=== PATIENT | male | born 1960 | race Caucasian/White ===

== ENCOUNTER 2019-10-08 05:07 | Emergency (ER) | payer OTHER, SELFPAY ==
[2019-10-08 05:16] VITALS: BP 136/87; PULSE 84; RESP 18; TEMP 36.4; O2SAT 98; BMI 31.3
--- NOTE | 2019-10-08 05:35 | ED_ITS ---
HPI - Wound/Laceration General: Chief Complaint: Wound/Laceration Stated Complaint: possible spider bite right thigh Time Seen by Provider: 10/08/19 05:21 History of Present Illness: HPI narrative: 58-year-old diabetic he says he was bitten by a spider 2 to 3 weeks ago on the right lateral thigh. He was also bitten again a week ago on the left buttock. He has a small swollen tender spot over his left eye as well. He was told by his daughter to be evaluated. He denies any fever, chills, streaking redness, etc. He had placed a drawing ointment on 1 of the areas, and evacuated some drainage a week or so ago. Onset (ago): week(s) (2-3) Extremity Location: Left: hip and Right: thigh Place: home Patient tetanus UTD: No Context: accidental Associated symptoms: Reports no associated symptoms; Denies chills or fever(s) Treatments prior to arrival: bandage Review of Systems Const: Denies: fever, chills or body aches Card: Denies: chest pain or palpitations Resp: Denies: shortness of breath or productive cough Skin/Breast: Reports: redness, sores and new lesion PFSH ED PFSH: Social History Smoking and tobacco status: current every day smoker Physical Exam Const: COMMON NORMALS: no apparent distress and oriented x3 Resp: COMMON NORMALS: normal respiratory effort, no retractions and clear to auscultation bilaterally AUSCULTATION: clear to auscultation bilaterally Cardio: COMMON NORMALS: regular rhythm RATE: tachycardic RHYTHM: regular rhythm Neuro: COMMON NORMALS: oriented x3 Skin: NARRATIVE SKIN EXAM: 6 cm area of induration with eschar formation over the right thigh. There is no fluctuance. 3 cm induration area with eschar formation over the left buttock with no fluctuance. Small area of induration over the left eyebrow with no fluctuance. LESIONS: lesion noted Course Vital Signs: Vital signs: Vital Signs Temperature 97.6 F 10/08/19 05:16 Pulse Rate 84 10/08/19 05:16 Respiratory Rate 18 10/08/19 05:16 Blood Pressure 136/87 10/08/19 05:16 Pulse Oximetry 98 10/08/19 05:16 MDM - Wound/Laceration MDM Narrative: Medical decision making narrative: No indication for labs. No drainable abscesses. The abscess to the right thigh has drained sufficiently. He will be placed on some doxycycline Discharge Plan Discharge Patient Disposition: Home, Self-Care Clinical Impression: Abscess, Accidental spider bite Condition: Stable Prescriptions: New doxycycline hyclate 100 mg capsule 100 mg PO BID 10 Days Qty: 20 RF: 0 Discharge Orders: Discharge Order (Routine); Ordered 10/08/19 Ordered By: Emeterio Humphrey Discharge Diet: Usual diet Discharge Activity: Increase activity as tolerated Patient Instructions: Brown Recluse Spider Bite (ED), Abscess (ED) Activity Restrictions/Additional Instructions: Return for fever greater than 100, increasing swelling, streaking redness, worsening pain, other concerning symptoms. Coding Level of Care Code ED Radio Journalist for Katiana Mcclain
[2019-10-08] MEDS: doxycycline 100 mg Tablet PO (05:53)
[2019-10-08] MEDS: tetanus-diphtheria tox (adult) 0.5 mL SDV IM (05:53)
== END 2019-10-08 05:59 | disposition home or self-care (01) ==
PROVIDERS: Emergency Provider Emergency Medicine
DX: T63.301A Toxic effect of unspecified spider venom, accidental (unintentional), initial encounter (principal); L02.415 Cutaneous abscess of right lower limb; F17.210 Nicotine dependence, cigarettes, uncomplicated; Z23 Encounter for immunization
CPT/HCPCS: 12345; 90714; 99281; 99283

== ENCOUNTER 2019-11-12 21:56 | Emergency (ER) | payer OTHER, SELFPAY ==
[2019-11-12 22:32] VITALS: BP 145/83; PULSE 112; RESP 17; TEMP 36.9; O2SAT 98; BMI 31.3
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
[2019-11-13] MEDS: ketorolac 30 mg/mL INJ IM (00:28)
[2019-11-13] MEDS: orphenadrine 30 mg/mL Inj 2 mL 60 MG IM (00:29)
[2019-11-13 00:50] VITALS: BP 138/88; PULSE 16; RESP 73; O2SAT 98
== END 2019-11-13 00:53 | disposition home or self-care (01) ==
PROVIDERS: Emergency Provider Nurse Practitioner Family
DX: M54.6 Pain in thoracic spine (principal); F17.210 Nicotine dependence, cigarettes, uncomplicated
CPT/HCPCS: 12345; 96372; 99281; 99283; J1885; J2360

== ENCOUNTER 2020-04-18 17:51 | Emergency (ER) | payer OTHER, SELFPAY ==
[2020-04-18] VITALS (7 sets, daily range): BP systolic 147–187; BP diastolic 93–102; PULSE 96–122; RESP 17–20; TEMP 36.8; O2SAT 90–99; BMI 31.3
--- NOTE | 2020-04-18 19:31 | CTR_ITS ---
PROCEDURE INFORMATION: Exam: CT Abdomen And Pelvis With Contrast Exam date and time: 04/18/2020 7:50 PM Age: 59 years old Clinical indication: Nausea and vomiting; Abdominal pain; Additional info: Epigastric pain TECHNIQUE: Imaging protocol: Computed tomography of the abdomen and pelvis with intravenous contrast. Radiation optimization: All CT scans at this facility use at least one of these dose optimization techniques: automated exposure control; mA and/or kV adjustment per patient size (includes targeted exams where dose is matched to clinical indication); or iterative reconstruction. Contrast material: OMNI 300; Contrast volume: 95 ml; Contrast route: INTRAVENOUS (IV); COMPARISON: CT abdomen pelvis w con* [id number] 10/08/2018 11:20 PM RADIATION DOSE METRICS: Total DLP (mGy-cm): 647.22 FINDINGS: Lungs: Mild interstitial fibrosis at the lung bases. Liver: The liver is unremarkable in appearance. Decreased hepatic density is noted, consistent with hepatic steatosis. Gallbladder and bile ducts: No calcified gallstones in the gallbladder. No gallbladder wall thickening. No pericholecystic fluid. No biliary dilatation. Pancreas: The pancreas is normal in appearance. Spleen: The spleen is normal in size and appearance. Adrenal glands: TheThe adrenal glands appear within normal limits. Kidneys and ureters: 6 mm simple appearing cyst, lower pole left kidney. 3 mm nonobstructing left renal calculus. No hydronephrosis. Normal ureters bilaterally. Stomach and bowel: Mural thickening of the gastric antrum, consistent with gastritis versus gastric ulcer disease. Moderate retained stool throughout the colon, consistent with constipation. The small bowel is unremarkable as demonstrated. Appendix: No evidence of appendicitis. Intraperitoneal space: No pneumoperitoneum. No significant fluid collection. Vasculature: The aorta is atherosclerotic. No aortic aneurysm. Lymph nodes: No pathologically enlarged lymph nodes. Urinary bladder: The urinary bladder is unremarkable in appearance. Reproductive: Unremarkable as visualized. Bones/joints: Degenerative spine changes are noted. No fracture or other acute osseous abnormality. No fracture or other acute osseous abnormality. Soft tissues: Unremarkable. CT/CT abdomen pelvis w con* [id number] IMPRESSION: 1. Mural thickening of the gastric antrum, consistent with gastritis versus gastric ulcer disease. This is similar to the appearance of the stomach on 10/08/2018. 2. Decreased hepatic density is noted, consistent with hepatic steatosis. COMMENTS: Consistent with the [employer]'s Incidental Findings Committee white paper (J Am Ciara Radiol 2018): Any incidental renal lesion less than 1 cm or classified as too small to characterize, or any incidental cystic renal lesion characterized as simple-appearing, is likely benign. No follow-up imaging is recommended for these lesions per consensus recommendations based on imaging criteria. Radiation Dose CTDIVOL = (mGy): DLP = 647.22 (mGy-cm)
--- NOTE | 2020-04-18 19:32 | ECG_ITS ---
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 Measurements Intervals [place] Rate: 108 P: 71 PA: 151 QRS: 70 QRSD: 77 T: 89 QT: 325 QTc: 436 Interpretive Statements SINUS TACHYCARDIA SEPTAL MYOCARDIAL INFARCTION , OF INDETERMINATE AGE [40+ ms Q WAVE IN V1/V2] Compared to ECG 08/12/2015 20:34:47 Myocardial infarct finding now present Sinus rhythm no longer present T-wave abnormality no longer present Electronically Signed On 04-19-2020 21:59:00 TIER OVER by Cisco Bishop M.D. [email or web address]
[2020-04-18] MEDS: ondansetron 2 mg/ML SDV 2 mL 4 MG IVP (19:44)
[2020-04-18] MEDS: morphine 4 mg/mL SDV 1 mL IVP (19:45)
[2020-04-18] MEDS: pantoprazole 40 mg SDV IVP (19:45)
--- NOTE | 2020-04-18 19:51 | PC.NURSE ---
Patient blood glucose is 219, nurse and doctor are aware.
[2020-04-18 19:54] LABS: Glucose Point of Care 219 mg/dL (70-110)
[2020-04-18 20:01] LABS: Basophils # 0.1 10^3/uL (0.0-0.1); Basophils % 0.6 %; Eosinophils # 0.5 10^3/uL (0.0-0.8); Eosinophils % 2.8 %; Hematocrit 53.1 % (42.0-52.0); Hemoglobin 17.8 g/dL (11.7-16.6); Lymphocytes # 5.1 10^3/uL (0.8-4.8); Lymphocytes % 28.8 %; Mean Corpuscular HGB Conc 33.5 g/dL (30.0-36.0); Mean Corpuscular Hemoglobin 28.4 pg (28.0-34.0); Mean Corpuscular Volume 84.7 fL (80-94); Mean Platelet Volume 11.1 fL (7.4-10.4); Monocytes # 1.1 10^3/uL (0.2-0.9); Monocytes % 6.2 %; Neutrophils # 10.87 10^3/uL (1.8-7.7); Neutrophils % 61.1 %; Nucleated Red Blood Cells % 0 %; Platelet Count 269 10^3/cmm (130-400); Red Blood Count 6.27 10^6/uL (4.1-5.3); Red Cell Distribution Width 12.1 % (12.1-15.1); White Blood Count 17.8 10^3/uL (4.0-10.0)
[2020-04-18] MEDS: iohexol 300 mg/mL 100 mL Btl IV (20:10)
[2020-04-18 20:16] LABS: Troponin(5th) Baseline 8 ng/L (0-15)
[2020-04-18] MEDS: HYDROmorphone 1 mg/mL INJ 1 mL IVP (20:30)
--- NOTE | 2020-04-18 20:46 | PC.NURSE ---
This pt displays rapid eye movement and confusion, forgetting that i just administered pain medication. pt continues to experience abdominal pain after morphine and hydromorphine. pt expresses that he is still dizzy. notified.
[2020-04-18] MEDS: lidocaine 2% viscous 15 ML, aluminum-mag hydrox-simethicon 30 ML, sucralfate oral liq 1 GM PO (21:11)
[2020-04-18 21:22] LABS: Add Urine Microscopic? NO
--- NOTE | 2020-04-18 21:32 | ECG_ITS ---
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 Measurements Intervals [place] Rate: 96 P: 74 AR: 164 QRS: 68 QRSD: 80 T: 85 QT: 348 QTc: 441 Interpretive Statements SINUS RHYTHM WITH OCCASIONAL VENTRICULAR PREMATURE COMPLEXES SEPTAL MYOCARDIAL INFARCTION , OF INDETERMINATE AGE [40+ ms Q WAVE IN V1/V2] Compared to ECG 04/18/2020 19:42:14 Ventricular premature complex(es) now present Sinus tachycardia no longer present Myocardial infarct finding still present Electronically Signed On 04-19-2020 22:06:25 LAY OUT FORMER by Cisco Bishop M.D. [id number]
[2020-04-18 21:49] LABS: Blood Urea Nitrogen 10 mg/dL (6-20); Calcium 9.4 mg/dL (8.5-10.5); Carbon Dioxide 29 mmol/L (22-29); Chloride 93 mmol/L (98-107); Glomerular Filtration Rate 115.8 mL/min (90-130); Glucose 247 mg/dL (65-115); Osmolality Calculated 283 mOsm/kg (285-295); Sodium 133 mmol/L (136-145)
[2020-04-18 21:50] LABS: Alanine Aminotransferase 21 U/L (0-41); Albumin Level 4.1 g/dL (3.5-5.2); Alkaline Phosphatase 125 IU/L (40-130); Aspartate Amino Transferase 16 U/L (0-40); Globulin 2.4 g/dL (1.3-4.6); Lipase 59 U/L (13-60); Total Bilirubin 0.3 mg/dL (0.15-1.2); Total Protein 6.5 g/dL (6.6-8.7)
[2020-04-18 22:05] LABS: Bilirubin Urine Neg (Negative); Blood Urine Neg (Negative); Glucose Urine UA 4+ (Normal); Ketones Urine Negative (Negative); Leukocyte Esterase Urine Negative (Negative); Nitrate Urine Negative (Negative); Protein Urine Neg (Negative); Specific Gravity, Urine 1.005 (1.005-1.030); Urine Appearance Clear (CLEAR); Urine Color Yellow (Yellow); Urobilinogen Urine Norm (Negative)
[2020-04-18 22:22] LABS: Troponin 5 2HR 7.63 ng/L (0-15)
[2020-04-18 22:35] LABS: Troponin 5 2HR Delta -0.37 ABS# (0-10)
--- NOTE | 2020-04-18 22:46 | ED_ITS ---
HPI - Abdominal Pain General: Chief Complaint: Abdominal Pain Stated Complaint: unbearable ab pain,dizziness Time Seen by Provider: 04/18/20 19:24 Source: patient Mode of arrival: ambulatory Limitations: no limitations History of Present Illness: HPI narrative: 59-year-old gentleman presents to the emergency department with complaints of. That has been ongoing for about 3 days. Pain is worsening, with associated nausea and dry heaving but no vomiting. He denies diarrhea or constipation. He says he also has dizziness, however the dizziness has been ongoing for about a year. He is here to be evaluated for the pain MD elicited complaint: abdominal pain Pertinent past history: gastritis Onset (ago): day(s) (3) Pain Consistency: constant Location: Epigastric Severity: severe Quality: stabbing Radiation: none Migration to: no migration Exacerbating factors: nothing Relieving factors: nothing Associated Symptoms: Reports anorexia, dyspepsia and nausea; Denies belching, bloating, change in bowel habits, change in stool character, chills, coffee ground emesis, constipation, GI cramping, diarrhea, dysuria, excessive flatus, fever(s), heartburn, hematochezia, hematuria, hematemesis, fecal incontinence, loose stools, melena, poor appetite, syncope and vomiting Review of Systems General: Reports: 10 or more systems reviewed and unremarkable except in HPI and below Const: Denies: fever(s) or chills Eyes: Denies: change in vision or blurry vision ENMT: Denies: throat pain, enlarged tonsils, odynophagia, hoarseness, mouth p ain or swelling of lips/tongue Card: Denies: syncope Resp: Denies: dyspnea, productive cough or non-productive cough GI: Reports: nausea; Denies: vomiting, hematemesis, coffee ground emesis, heartburn, diarrhea, constipation, bloating, GI cramping, belching, excessive flatus, fecal incontinence, change in bowel habits, change in stool character, hematochezia or melena : Denies: dysuria or hematuria Musc: Denies: neck pain, back pain or extremity swelling Skin/Breast: Denies: rash, pruritus or erythema Neuro: Denies: headache(s), numbness in extremities or weakness in extremities Endo: Denies: polyuria, polydipsia or tired all the time PFSH ED PFSH: Social History Smoking and tobacco status: current every day smoker Physical Exam Const: COMMON NORMALS: average body habitus, patient oriented x3, no limitations, healthy appearing, alert and well nourished GENERAL APPEARANCE: in distress (Painful) HENMT: COMMON NORMALS: normocephalic, atraumatic and moist oral mucous membranes HEAD & SCALP: normocephalic and atraumatic Eye: COMMON NORMALS: Equal, round and reactive pupils present, EOMs intact bilaterally, conjunctivae normal and no scleral icterus CONJUNCTIVA: Yes conjunctivae normal PUPIL: Yes Equal, round and reactive pupils present Neck/C-Spine: COMMON NORMALS: no meningeal signs and no JVD Resp: COMMON NORMALS: normal respiratory effort, No retractions, No use of accessory muscles, clear to auscultation bilaterally and percussion normal AUSCULTATION: clear to auscultation bilaterally PERCUSSION: percussion normal Cardio: COMMON NORMALS: no JVD, regular rate, regular rhythm, S1 normal heart sound present, S2 normal heart sound present, No gallops present (Cardio), No clicks present (Cardio), No murmurs present (Cardio), No rub (Cardio) and Peripheral pulses 2+ throughout RATE: regular rate RHYTHM: regular rhythm HEART SOUNDS: S1 normal heart sound present and S2 normal heart sound present PERIPHERAL PULSES: Peripheral pulses 2+ throughout GI: COMMON NORMALS: Normal to inspection, nondistended, normoactive bowel sounds present, Soft to palpation, No hepatosplenomegaly present, no masses and no bruits PALPATION: Yes Soft to palpation, Yes Tenderness to palpation present (GI) (Epigastric), No Guarding due to palpation present (GI), No Rigid due to palpation, Yes No hepatosplenomegaly present and No Rebound tenderness present Extremity: COMMON NORMALS: normal to inspection, full ROM, capillary refill normal, no calf tenderness and no pedal edema Neuro: COMMON NORMALS: patient oriented x3 SENSORIUM/ORIENTATION: Yes alert MENINGEAL SIGNS: Yes no meningeal signs Skin: COMMON NORMALS: no rashes or lesions noted, no wounds, turgor normal, no jaundice, no petechiae and no mottling GENERAL SKIN EXAM: no rashes or lesions noted and turgor normal Course Reevaluation(s): Reevaluation #1: Patient seen he feels much better especially after the GI cocktail. Explained his lab and imaging findings with him. CT scan suggestive of gastritis/gastric ulcer. He says he has a history of gastritis. He has never had an upper GI endoscopy. We will discharge him home with a prescription for PPI and he is advised on diet, avoid spicy foods, caffeine, acidic foods. We will put in a consult for outpatient endoscopy. He voiced understanding and is in agreement with the plan Time: 22:47 Vital Signs: Vital signs: Vital Signs Temperature 98.2 F 04/18/20 17:58 Pulse Rate 96 04/18/20 23:05 Respiratory Rate 18 04/18/20 20:33 Blood Pressure 151/93 04/18/20 21:17 Pulse Oximetry 99 04/18/20 23:05 MDM - Abdominal Pain MDM Narrative: Medical decision making narrative: 59-year-old male who presented to the emergency department with severe epigastric abdominal pain. Evaluation in the emergency department was consistent with acute gastritis. CT scan shows acute gastritis all gastric ulcer based on the imaging findings. Lab work was unremarkable other than leukocytosis which could be a combination of dehydration and stress reaction. He improved remarkably following the GI cocktail. He is discharged home with combination therapy of a PPI and an H2 oleg. He is to follow-up with his primary care provider and an outpatient upper GI endoscopy will be scheduled for him. Medical Records: Attestation: I reviewed the patient's medical records. Lab Data: Attestation: I reviewed the patient's lab results. Labs: Lab Results 04/18/20 04/18/20 04/18/20 Range/Units 19:42 19:42 19:42 WBC 17.8 H (4.0-10.0) 10^3/ uL RBC 6.27 H (4.1-5.3) 10^6/u L Hgb 17.8 H (11.7-16.6) g/dL Hct 53.1 H (42.0-52.0) % MCV 84.7 (80-94) fL MCH 28.4 (28.0-34.0) pg MCHC 33.5 (30.0-36.0) g/dL RDW 12.1 (12.1-15.1) % Plt Count 269 (130-400) 10^3/c mm MPV 11.1 H (7.4-10.4) fL Neut % (Auto) 61.1 % Lymph % (Auto) 28.8 % [place] % (Auto) 6.2 % Eos % (Auto) 2.8 % Baso % (Auto) 0.6 % Neut # (Auto) 10.87 H (1.8-7.7) 10^3/u L Lymph # (Auto) 5.1 H (0.8-4.8) 10^3/u L [place] # (Auto) 1.1 H (0.2-0.9) 10^3/u L Eos # (Auto) 0.5 (0.0-0.8) 10^3/u L Baso # (Auto) 0.1 (0.0-0.1) 10^3/u L Nucleated RBC % (a uto) 0 % Nucleated RBCs # 0.0 /100WBC Sodium 133 L (136-145) mmol/L Potassium 4.0 (3.5-5.1) mmol/L Chloride 93 L (98-107) mmol/L Carbon Dioxide 29 (22-29) mmol/L Anion Gap 15.0 (5-19) BUN 10 (6-20) mg/dL Creatinine 0.7 (0.7-1.2) mg/dL GFR Calculation 115.8 (90-130) mL/min Glucose 247 H (65-115) mg/dL POC Glucose (70-110) mg/dL Calculated Osmolal ity 283 L (285-295) mOsm/k g Calcium 9.4 (8.5-10.5) mg/dL Total Bilirubin 0.3 (0.15-1.2) mg/dL AST 16 (0-40) U/L ALT 21 (0-41) U/L Alkaline Phosphata se 125 (40-130) IU/L Troponin T Baselin e 8 (0-15) ng/L Troponin T 120 Min [place] (0-15) ng/L Delta Troponin T (0-10) ABS# Total Protein 6.5 L (6.6-8.7) g/dL Albumin 4.1 (3.5-5.2) g/dL Globulin 2.4 (1.3-4.6) g/dL Lipase 59 (13-60) U/L Urine Color (Yellow) Urine Appearance (CLEAR) Urine pH (5-7) Ur Specific Gravit y (1.005-1.030) Urine Protein (Negative) Urine Glucose (UA) (Normal) Urine Ketones (Negative) Urine Blood (Negative) Urine Nitrate (Negative) Urine Bilirubin (Negative) Urine Urobilinogen (Negative) mg/dL Ur Leukocyte Rut ase (Negative) 04/18/20 04/18/20 04/18/20 Range/Units 19:49 21:15 21:50 WBC (4.0-10.0) 10^3/ uL RBC (4.1-5.3) 10^6/u L Hgb (11.7-16.6) g/dL Hct (42.0-52.0) % MCV (80-94) fL MCH (28.0-34.0) pg MCHC (30.0-36.0) g/dL RDW (12.1-15.1) % Plt Count (130-400) 10^3/c mm MPV (7.4-10.4) fL Neut % (Auto) % Lymph % (Auto) % [place] % (Auto) % Eos % (Auto) % Baso % (Auto) % Neut # (Auto) (1.8-7.7) 10^3/u L Lymph # (Auto) (0.8-4.8) 10^3/u L [place] # (Auto) (0.2-0.9) 10^3/u L Eos # (Auto) (0.0-0.8) 10^3/u L Baso # (Auto) (0.0-0.1) 10^3/u L Nucleated RBC % (a uto) % Nucleated RBCs # /100WBC Sodium (136-145) mmol/L Potassium (3.5-5.1) mmol/L Chloride (98-107) mmol/L Carbon Dioxide (22-29) mmol/L Anion Gap (5-19) BUN (6-20) mg/dL Creatinine (0.7-1.2) mg/dL GFR Calculation (90-130) mL/min Glucose (65-115) mg/dL POC Glucose 219 (70-110) mg/dL Calculated Osmolal ity (285-295) mOsm/k g Calcium (8.5-10.5) mg/dL Total Bilirubin (0.15-1.2) mg/dL AST (0-40) U/L ALT (0-41) U/L Alkaline Phosphata se (40-130) IU/L Troponin T Baselin e (0-15) ng/L Troponin T 120 Min [place] 7.63 (0-15) ng/L Delta Troponin T -0.37 L (0-10) ABS# Total Protein (6.6-8.7) g/dL Albumin (3.5-5.2) g/dL Globulin (1.3-4.6) g/dL Lipase (13-60) U/L Urine Color Yellow (Yellow) Urine Appearance Clear (CLEAR) Urine pH 8.0 H (5-7) Ur Specific Gravit y 1.005 (1.005-1.030) Urine Protein Neg (Negative) Urine Glucose (UA) 4+ H (Normal) Urine Ketones Negative (Negative) Urine Blood Neg (Negative) Urine Nitrate Negative (Negative) Urine Bilirubin Neg (Negative) Urine Urobilinogen Norm (Negative) mg/dL Ur Leukocyte Rut ase Negative (Negative) Imaging Data ^: CT Abd/Pel: Attestation: I personally reviewed and interpreted this imaging study as follows: Radiologist's impression: [address] [address] [address] Scan Report Signed Patient: Tom Lyons #: [id number] : [facility]#:[id number] Age/Sex: 59 / MADM Date: 04/18/20 Loc: [facility]/Bed: Attending Dr: Ordering Provider/Ordering MD: Esperanza Cruz MD, [facility] Date of Service: 04/18/20 Procedure(s): CT abdomen pelvis w con* [id number] Accession Number(s): [id number] Report Number: [id number] PROCEDURE INFORMATION: Exam: CT Abdomen And Pelvis With Contrast Exam date and time: 04/18/2020 7:50 PM Age: 59 years old Clinical indication: Nausea and vomiting; Abdominal pain; Additional info: Epigastric pain TECHNIQUE: Imaging protocol: Computed tomography of the abdomen and pelvis with intravenous contrast. Radiation optimization: All CT scans at this facility use at least one of these dose optimization techniques: automated exposure control; mA and/or kV adjustment per patient size (includes targeted exams where dose is matched to clinical indication); or iterative reconstruction. Contrast material: OMNI 300; Contrast volume: 95 ml; Contrast route: INTRAVENOUS (IV); COMPARISON: CT abdomen pelvis w con* [id number] 10/08/2018 11:20 PM RADIATION DOSE METRICS: Total DLP (mGy-cm): 647.22 FINDINGS: Lungs: Mild interstitial fibrosis at the lung bases. Liver: The liver is unremarkable in appearance. Decreased hepatic density is noted, consistent with hepatic steatosis. Gallbladder and bile ducts: No calcified gallstones in the gallbladder. No gallbladder wall thickening. No pericholecystic fluid. No biliary dilatation. Pancreas: The pancreas is normal in appearance. Spleen: The spleen is normal in size and appearance. Adrenal glands: TheThe adrenal glands appear within normal limits. Kidneys and ureters: 6 mm simple appearing cyst, lower pole left kidney. 3 mm nonobstructing left renal calculus. No hydronephrosis. Normal ureters bilaterally. Stomach and bowel: Mural thickening of the gastric antrum, consistent with gastritis versus gastric ulcer disease. Moderate retained stool throughout the colon, consistent with constipation. The small bowel is unremarkable as demonstrated. Appendix: No evidence of appendicitis. Intraperitoneal space: No pneumoperitoneum. No significant fluid collection. Vasculature: The aorta is atherosclerotic. No aortic aneurysm. Lymph nodes: No pathologically enlarged lymph nodes. Urinary bladder: The urinary bladder is unremarkable in appearance. Reproductive: Unremarkable as visualized. Bones/joints: Degenerative spine changes are noted. No fracture or other acute osseous abnormality. No fracture or other acute osseous abnormality. Soft tissues: Unremarkable. CT/CT abdomen pelvis w con* [id number] IMPRESSION: 1. Mural thickening of the gastric antrum, consistent with gastritis versus gastric ulcer disease. This is similar to the appearance of the stomach on 10/08/2018. 2. Decreased hepatic density is noted, consistent with hepatic steatosis. COMMENTS: Consistent with the [employer]'s Incidental Findings Committee white paper (J Am Ciara Radiol 2018): Any incidental renal lesion less than 1 cm or classified as too small to characterize, or any incidental cystic renal lesion characterized as simple-appearing, is likely benign. No follow-up imaging is recommended for these lesions per consensus recommendations based on imaging criteria. Radiation Dose CTDIVOL = (mGy): DLP = 647.22 (mGy-cm) Dictated By:Lonny Erickson MD Signed By:Lonny Erickson MDSigned Date/Time:04/18/202029 DD/ 27 EKG Data ^: EKG 1: Attestation: I personally reviewed and interpreted this EKG as follows: EKG interpretation date: 04/18/20 EKG interpretation time: 19:42 Prior EKG tracings: not available for review Interpretation: Sinus tachycardia. Heart rate [address] changes. Normal axis. EKG 2: Attestation: I personally reviewed and interpreted this EKG as follows: EKG interpretation date: 04/18/20 EKG interpretation time: 22:00 Prior EKG tracings: available for review Interpretation: Sinus rhythm with occasional PVC. Heart rate [address] changes. Discharge Plan Discharge Patient Disposition: Home Clinical Impression: Gastritis Qualifiers: Gastritis type: unspecified gastritis Chronicity: acute Gastritis bleeding: without bleeding Qualified Code(s): K29.00 - Acute gastritis without bleeding Condition: Stable Prescriptions: New famotidine 40 mg tablet 40 mg PO DAILY Qty: 14 RF: 0 omeprazole 40 mg capsule,delayed release(DR/EC) 40 mg PO DAILY 28 Days Qty: 30 RF: 0 Discharge Orders: Discharge Order (Routine); Ordered 04/18/20 Ordered By: Esperanza Cruz Discharge Diet: As Directed Discharge Activity: Increase activity as tolerated Patient Instructions: Gastritis (ED), Diet for Ulcers and Gastritis (ED) Activity Restrictions/Additional Instructions: Return for any new or worsening symptoms. Follow-up with your primary care provider within 3 days. You will be contacted with an appointment for an upper GI endoscopy to see if you have a stomach ulcer or just an inflammation of your stomach. Follow the diet as directed. Coding Level of Care Code ED Certified Phlebotomist for Chg Fwd Exam Comprehensive
--- NOTE | 2020-04-18 23:06 | PC.NURSE ---
pt dc home as the GI cocktail completely stopped his pain he is feeling much better.
--- NOTE | 2020-04-19 11:10 | DCPLANNER ---
Addendum entered by Teena Maurice 04/19/20 12:36: Patient has [facility] insurance, residential case manager notified August with [facility] that patient was seen in the ED and needed a followup with general surgery. Original Note: meat manager had message to schedule a follow up appointment for patient with general surgery. meat manager emailed Amada at [facility]. meat manager gave clinic patients information. Patients information will be printed and reviewed. Clinic will call patient with appointment information.
--- NOTE | 2020-04-19 15:30 | DCPLANNER ---
Gena from the [place] contacted patient and was told that patient does not have a PACT team assigned to him in [place]. manager research and development was given a phone number to the [place] business office, that patient would need to contact and let know that patient would like to get assigned a PACT team in [place]. manager research and development called patient and gave them the number to business office for him to call so that he could get assigned a team.
== END 2020-04-18 23:07 | disposition home or self-care (01) ==
PROVIDERS: Emergency Medicine; Emergency Provider Family Medicine
DX: K29.00 Acute gastritis without bleeding (principal); F17.210 Nicotine dependence, cigarettes, uncomplicated; R42 Dizziness and giddiness
CPT/HCPCS: 12345; 36416; 74177; 80053; 81003; 82962; 83690; 84484; 85025; 93005; 96374; 96375; 99283; C9113; J1170; J2270; J2405; Q9967

== ENCOUNTER 2021-04-22 17:07 | Observation (INO) | payer OTHER, SELFPAY ==
[2021-04-22 17:14] VITALS: BP 173/93; PULSE 114; RESP 14; TEMP 37.1; O2SAT 99; BMI 28.1
--- NOTE | 2021-04-22 18:21 | XRR_ITS ---
PROCEDURE INFORMATION: Exam: XR Chest Exam date and time: 04/22/2021 6:21 PM Age: 60 years old Clinical indication: Other: AMS TECHNIQUE: Imaging protocol: XR of the chest. Views: 1 view. COMPARISON: CR Chest 1 [place] [id number] 08/12/2015 8:04 PM FINDINGS: Increased interstitial markings are seen throughout the lungs especially the left lung base. There is no consolidation. There is no pleural effusion or pneumothorax. The heart size is normal. XR/XR chest 1V portable [id number] IMPRESSION: Increased interstitial markings throughout the lungs especially the left lung base. No consolidation. Radiation Dose CTDIVOL = (mGy): DLP = (mGy-cm)
--- NOTE | 2021-04-22 18:21 | CTR_ITS ---
PROCEDURE INFORMATION: Exam: CT Head Without Contrast Exam date and time: 04/22/2021 6:21 PM Age: 60 years old Clinical indication: Altered mental status/memory loss; Additional info: AMS TECHNIQUE: Imaging protocol: Computed tomography of the head without contrast. Radiation optimization: All CT scans at this facility use at least one of these dose optimization techniques: automated exposure control; mA and/or kV adjustment per patient size (includes targeted exams where dose is matched to clinical indication); or iterative reconstruction. COMPARISON: No relevant prior studies available. RADIATION DOSE METRICS: Total DLP (mGy-cm): 864.41 FINDINGS: There is mild generalized atrophy. There are mild areas of decreased attenuation in the periventricular white matter which is nonspecific but likely relates to small vessel ischemic change. 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 There is no evidence for acute infarct. There is no evidence for mass. There is no hemorrhage. There are no extra-axial fluid collections. There is no midline shift. The skull is intact. The visualized paranasal sinuses are well aerated. There is atherosclerotic change of the cavernous carotid arteries. CT/CT head wo con* [id number] IMPRESSION: No evidence for acute infarct, mass or hemorrhage. Radiation Dose CTDIVOL = (mGy): DLP = 864.41 (mGy-cm)
--- NOTE | 2021-04-22 18:21 | ECG_ITS ---
[facility] Test Date: 2021-04-22 Pat Name: Tom Lyons Department: Room: Gender: Male Product Controller: : 1960 Requested By: Estrella Mckeon Order Number: [id number] Melissa MD: Cisco Bishop M.D. Measurements Intervals [place] Rate: 115 P: 68 PA: 132 QRS: 59 QRSD: 77 T: 81 QT: 312 QTc: 432 Interpretive Statements SINUS TACHYCARDIA POSSIBLE LEFT ATRIAL ENLARGEMENT [-0.1mV P-WAVE IN V1/V2] SEPTAL MYOCARDIAL INFARCTION , OF INDETERMINATE AGE [40+ ms Q WAVE IN V1/V2] Compared to ECG 04/18/2020 21:59:49 Sinus rhythm no longer present Ventricular premature complex(es) no longer present Myocardial infarct finding still present Electronically Signed On 04-22-2021 20:05:52 PROGRAM COUNSELOR by Cisco Bishop M.D. [id number]
[2021-04-22 19:21] LABS: Glucose Point of Care 352 mg/dL (70-110)
[2021-04-22 19:29] LABS: Add Urine Microscopic? NO; Charge for UA Resulting for Rev
[2021-04-22 19:30] VITALS: BP 176/101; PULSE 105; RESP 18; O2SAT 98
[2021-04-22 19:35] LABS: Bilirubin Urine Neg (Negative); Blood Urine Neg (Negative); Glucose Urine UA 4+ (Normal); Ketones Urine Negative (Negative); Leukocyte Esterase Urine Negative (Negative); Nitrate Urine Negative (Negative); Protein Urine Neg (Negative); Specific Gravity, Urine 1.015 (1.005-1.030); Urine Appearance Clear (CLEAR); Urine Color Straw (Yellow); Urobilinogen Urine Norm (Negative); pH Urine 5 (5-7)
--- NOTE | 2021-04-22 19:50 | W.ED.AMS ---
HPI - Altered Mental Status General: Chief Complaint: Altered Mental Status Stated Complaint: Poss Stroke, Unclear thinking, unable to text Time Seen by Provider: 04/22/21 17:41 Source: patient Mode of arrival: ambulatory Limitations: no limitations History of Present Illness: HPI narrative: 60-year-old male states that since last night he has been having what he believes is strokelike symptoms. He states he has had difficulty forming thoughts he is having a hard time texting and just having some confusion. He states that he also felt like he is having some numbness in his face and increased drooling. Said some difficulty walking but able to walk while here. Denies any focal weaknesses. He has had no slurred speech. Denies any chest pain denies any fever denies headache. Associated symptoms: Deny depression Review of Systems Const: Denies: fever(s), chills, body aches or change in appetite Eyes: Denies: blurry vision or eye discomfort ENMT: Denies: throat pain or dental pain Card: Denies: chest pain Resp: Denies: dyspnea GI: Denies: abdominal pain, nausea, vomiting or diarrhea : Denies: dysuria Musc: Denies: neck pain or back pain Skin/Breast: Denies: rash Neuro: Reports: dizziness, confusion and behavioral changes Psych: Denies: depression Stewart/Lymph: Denies: easy bruising All/Imm: Denies: urticaria PFSH ED PFSH: Social History Smoking and tobacco status: current every day smoker Physical Exam Const: COMMON NORMALS: no acute distress, patient oriented x3 and healthy appearing HENMT: COMMON NORMALS: normocephalic and atraumatic HEAD & SCALP: normocephalic and atraumatic Eye: COMMON NORMALS: Equal, round and reactive pupils present and EOMs intact bilaterally PUPIL: Yes Equal, round and reactive pupils present Neck/C-Spine: COMMON NORMALS: full ROM and supple Chest: COMMONS NORMALS: normal inspection of the chest and normal palpation of entire chest wall Resp: COMMON NORMALS: normal respiratory effort, No retractions, No use of accessory muscles and clear to auscultation bilaterally AUSCULTATION: clear to auscultation bilaterally Cardio: COMMON NORMALS: regular rate, regular rhythm and No murmurs present (Cardio) RATE: regular rate RHYTHM: regular rhythm GI: COMMON NORMALS: Normal to inspection, nondistended, normoactive bowel sounds present, Soft to palpation, non-tender and no masses PALPATION: Yes Soft to palpation Extremity: COMMON NORMALS: normal to inspection and full ROM Neuro: COMMON NORMALS: patient oriented x3, moves all extremities and no focal motor deficits Psych: COMMON NORMALS: mental status grossly normal, Normal thought process present and cooperative THOUGHT PROCESS: Normal thought process present Skin: COMMON NORMALS: no rashes or lesions noted and no wounds GENERAL SKIN EXAM: no rashes or lesions noted Course Vital Signs: Vital signs: Vital Signs Temperature 98.7 F 04/22/21 17:14 Pulse Rate 101 H 04/22/21 22:17 Respiratory Rate 18 04/22/21 22:17 Blood Pressure 146/86 04/22/21 22:35 Pulse Oximetry 99 04/22/21 22:17 MDM - Altered Mental Status MDM Narrative: Medical decision making narrative: Patient presents here with confusion and some slight weakness with possible strokelike symptoms NIH here is 0 at this time he does have some intermittent confusion. Spoke to the hospitalist will admit for observation for likely MRI in the morning patient's been stable while here. Lab Data: Labs: Lab Results 04/22/21 04/22/21 04/22/21 19:11 19:11 19:11 WBC RBC Hgb Hct MCV MCH MCHC RDW Plt Count MPV Neut % (Auto) Lymph % (Auto) Darke % (Auto) Eos % (Auto) Baso % (Auto) Neut # (Auto) Lymph # (Auto) Darke # (Auto) Eos # (Auto) Baso # (Auto) Nucleated RBC % (a uto) Nucleated RBCs # PT Cancelled INR Cancelled Sodium Cancelled Potassium Cancelled Chloride Cancelled Carbon Dioxide Cancelled Anion Gap Cancelled BUN Cancelled Creatinine Cancelled GFR Calculation Cancelled Glucose Cancelled POC Glucose Calculated Osmolal ity Cancelled Calcium Cancelled Total Bilirubin Cancelled AST Cancelled ALT Cancelled Alkaline Phosphata se Cancelled Troponin T Baselin e Cancelled Total Protein Cancelled Albumin Cancelled Globulin Cancelled Urine Color Urine Appearance Urine pH Ur Specific Gravit y Urine Protein Urine Glucose (UA) Urine Ketones Urine Blood Urine Nitrate Urine Bilirubin Urine Urobilinogen Ur Leukocyte Rut ase 1104/22/21 04/22/21 19:11 19:18 20:40 WBC 15.2 10^3/uL H 10 ^3/uL (4.0-10.0) RBC 5.95 10^6/uL H 10 ^6/uL (4.1-5.3) Hgb 17.3 g/dL H g/dL (11.7-16.6) Hct 48.7 % % (42.0-52.0) MCV 81.8 fl fl (80-94) MCH 29.1 pg pg (28.0-34.0) MCHC 35.5 g/dL g/dL (30.0-36.0) RDW 11.9 % L % (12.1-15.1) Plt Count 247 10^3/cmm 10^3 /cmm (130-400) MPV 11.0 fL H fL (7.4-10.4) Neut % (Auto) 56.0 % % Lymph % (Auto) 33.6 % % Darke % (Auto) 7.4 % % Eos % (Auto) 2.0 % % Baso % (Auto) 0.4 % % Neut # (Auto) 8.50 10^3/uL H 10 ^3/uL (1.8-7.7) Lymph # (Auto) 5.1 10^3/uL H 10^ 3/uL (0.8-4.8) Darke # (Auto) 1.1 10^3/uL H 10^ 3/uL (0.2-0.9) Eos # (Auto) 0.3 10^3/uL 10^3/ uL (0.0-0.8) Baso # (Auto) 0.1 10^3/uL 10^3/ uL (0.0-0.1) Nucleated RBC % (a uto) 0 % % Nucleated RBCs # 0.0 /100WBC /100W BC PT INR Sodium Potassium Chloride Carbon Dioxide Anion Gap BUN Creatinine GFR Calculation Glucose POC Glucose 352 mg/dL H mg/dL (70-110) Calculated Osmolal ity Calcium Total Bilirubin AST ALT Alkaline Phosphata se Troponin T Baselin e Total Protein Albumin Globulin Urine Color Straw (Yellow) Urine Appearance Clear (CLEAR) Urine pH 5 (5-7) Ur Specific Gravit y 1.015 (1.005-1.030) Urine Protein Neg (Negative) Urine Glucose (UA) 4+ H (Normal) Urine Ketones Negative (Negative) Urine Blood Neg (Negative) Urine Nitrate Negative (Negative) Urine Bilirubin Neg (Negative) Urine Urobilinogen Norm mg/dL mg/dL (Negative) Ur Leukocyte Rut ase Negative (Negative) 04/22/21 04/22/21 04/22/21 20:40 20:40 20:40 WBC RBC Hgb Hct MCV MCH MCHC RDW Plt Count MPV Neut % (Auto) Lymph % (Auto) Darke % (Auto) Eos % (Auto) Baso % (Auto) Neut # (Auto) Lymph # (Auto) Darke # (Auto) Eos # (Auto) Baso # (Auto) Nucleated RBC % (a uto) Nucleated RBCs # PT 13.20 SECONDS SEC ONDS (12.1-14.9) INR 0.97 (0.8-1.2) Sodium 133 mmol/L L mmol /L (136-145) Potassium 4.6 mmol/L mmol/L (3.5-5.1) Chloride 95 mmol/L L mmol/ L (98-107) Carbon Dioxide 23 mmol/L mmol/L (22-29) Anion Gap 19.6 H (5-19) BUN 19 mg/dL mg/dL (6-20) Creatinine 0.7 mg/dL mg/dL (0.7-1.2) GFR Calculation 115.4 mL/min mL/m in (90-130) Glucose 328 mg/dL H mg/dL (65-115) POC Glucose Calculated Osmolal ity 291 mOsm/kg mOsm/ kg (285-295) Calcium 8.9 mg/dL mg/dL (8.5-10.5) Total Bilirubin 0.4 mg/dL mg/dL (0.15-1.2) AST 17 U/L U/L (0-40) ALT 27 U/L U/L (0-41) Alkaline Phosphata se 157 IU/L H IU/L (40-130) Troponin T Baselin e 8 ng/L ng/L (0-15) Total Protein 7.1 g/dL g/dL (6.6-8.7) Albumin 3.8 g/dL g/dL (3.5-5.2) Globulin 3.3 g/dL g/dL (1.3-4.6) Urine Color Urine Appearance Urine pH Ur Specific Gravit y Urine Protein Urine Glucose (UA) Urine Ketones Urine Blood Urine Nitrate Urine Bilirubin Urine Urobilinogen Ur Leukocyte Rut ase Imaging Data^: CT Head: Attestation: I personally reviewed and interpreted this imaging study as follows: Radiologist's impression: [facility] [address] [place] [address] CT Scan Report Signed Patient: Tom Lyons Unit #: [id number] : 1960 Age/Sex: 60 / M ADM Date: 04/22/21 Loc: ER Room/Bed: Attending Dr: Ordering Provider/Ordering MD: Estrella Mckeon MD Date of Service: 04/22/21 Procedure(s): CT head wo con* [id number] Accession Number(s): [id number] Report Number: [id number] PROCEDURE INFORMATION: Exam: CT Head Without Contrast Exam date and time: 04/22/2021 6:21 PM Age: 60 years old Clinical indication: Altered mental status/memory loss; Additional info: AMS TECHNIQUE: Imaging protocol: Computed tomography of the head without contrast. Radiation optimization: All CT scans at this facility use at least one of these dose optimization techniques: automated exposure control; mA and/or kV adjustment per patient size (includes targeted exams where dose is matched to clinical indication); or iterative reconstruction. COMPARISON: No relevant prior studies available. RADIATION DOSE METRICS: Total DLP (mGy-cm): 864.41 FINDINGS: There is mild generalized atrophy. There are mild areas of decreased attenuation in the periventricular white matter which is nonspecific but likely relates to small vessel ischemic change. 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 There is no evidence for acute infarct. There is no evidence for mass. There is no hemorrhage. There are no extra-axial fluid collections. There is no midline shift. The skull is intact. The visualized paranasal sinuses are well aerated. There is atherosclerotic change of the cavernous carotid arteries. CT/CT head wo con* [id number] IMPRESSION: No evidence for acute infarct, mass or hemorrhage. Radiation Dose CTDIVOL = (mGy): DLP = 864.41 (mGy-cm) Dictated By: Bucky Berman MD Signed By: Bucky Berman MD Signed Date/Time: 04/22/211923 DD/ 20 CXR: Attestation: I personally reviewed and interpreted this imaging study as follows: Radiologist's impression: [address] [place] [address] XRay Report Signed Patient: Tom Lyons Unit #: [id number] : 1960 Age/Sex: 60 / M ADM Date: 04/22/21 Loc: ER Room/Bed: Attending Dr: Ordering Provider/Ordering MD: Estrella Mckeon MD Date of Service: 04/22/21 Procedure(s): XR chest 1V portable [id number] Accession Number(s): [id number] Report Number: [id number] PROCEDURE INFORMATION: Exam: XR Chest Exam date and time: 04/22/2021 6:21 PM Age: 60 years old Clinical indication: Other: AMS TECHNIQUE: Imaging protocol: XR of the chest. Views: 1 view. COMPARISON: CR Chest 1 [place] [id number] 08/12/2015 8:04 PM FINDINGS: Increased interstitial markings are seen throughout the lungs especially the left lung base. There is no consolidation. There is no pleural effusion or pneumothorax. The heart size is normal. XR/XR chest 1V portable [id number] IMPRESSION: Increased interstitial markings throughout the lungs especially the left lung base. No consolidation. Radiation Dose CTDIVOL = (mGy): DLP = (mGy-cm) Dictated By: Bucky Berman MD Signed By: Bucky Berman MD Signed Date/Time: 04/22/211924 DD/ 20 Discharge Plan Discharge Patient Disposition: Admitted As Inpatient Clinical Impression: Acute confusion Condition: Stable Discharge Diet: Advance as tolerated Discharge Activity: Resume usual activity Coding Level of Care Code ED Lead Embedded Software Engineer for Katiana Mcclain NIH stroke score NIHSS Level Of Consciousness - 1a: 0 Level Of Consciousness Questions - 1b: Both Correct Level Of Consciousness Commands - 1c: Both Correct Best Gaze - 2: Normal Visual Remy - 3: No Visual Loss Facial Palsy - 4: Normal Motor Arm Right - 5: No Drift Motor Arm Left - 5: No Drift Motor Leg Right - 6: No Drift Motor Leg Left - 6: No Drift Limb Ataxia - 7: Absent Sensory - 8: Normal Best Language - 9: No Aphasia Dysarthia - 10: Normal Extinction And Inattention - 11: 0 Score Total Score: 0
[2021-04-22 20:48] LABS: Basophils # 0.1 10^3/uL (0.0-0.1); Basophils % 0.4 %; Eosinophils # 0.3 10^3/uL (0.0-0.8); Hematocrit 48.7 % (42.0-52.0); Hemoglobin 17.3 g/dL (11.7-16.6); Lymphocytes # 5.1 10^3/uL (0.8-4.8); Lymphocytes % 33.6 %; Mean Corpuscular HGB Conc 35.5 g/dL (30.0-36.0); Mean Corpuscular Hemoglobin 29.1 pg (28.0-34.0); Mean Corpuscular Volume 81.8 fl (80-94); Monocytes # 1.1 10^3/uL (0.2-0.9); Monocytes % 7.4 %; Nucleated Red Blood Cells % 0 %; Platelet Count 247 10^3/cmm (130-400); Red Blood Count 5.95 10^6/uL (4.1-5.3); Red Cell Distribution Width 11.9 % (12.1-15.1); White Blood Count 15.2 10^3/uL (4.0-10.0)
[2021-04-22 21:16] LABS: INR 0.97 (0.8-1.2)
[2021-04-22 21:18] LABS: Troponin(5th) Baseline 8 ng/L (0-15)
[2021-04-22 21:21] LABS: Slide Review Slide Review Perform
[2021-04-22 21:22] LABS: Alanine Aminotransferase 27 U/L (0-41); Albumin Level 3.8 g/dL (3.5-5.2); Alkaline Phosphatase 157 IU/L (40-130); Chloride 95 mmol/L (98-107); Potassium 4.6 mmol/L (3.5-5.1); Sodium 133 mmol/L (136-145)
[2021-04-22 21:49] LABS: Anion Gap 19.6 (5-19); Aspartate Amino Transferase 17 U/L (0-40); Blood Urea Nitrogen 19 mg/dL (6-20); Calcium 8.9 mg/dL (8.5-10.5); Carbon Dioxide 23 mmol/L (22-29); Globulin 3.3 g/dL (1.3-4.6); Glomerular Filtration Rate 115.4 mL/min (90-130); Glucose 328 mg/dL (65-115); Osmolality Calculated 291 mOsm/kg (285-295); Total Bilirubin 0.4 mg/dL (0.15-1.2); Total Protein 7.1 g/dL (6.6-8.7)
--- NOTE | 2021-04-22 21:56 | PM.HP ---
Providers/Chief Complaint Chief Complaint: Poss Stroke, Unclear thinking, unable to text History of Present Illness Tom Lyons is a 60 year old male who presented to the hospital after chief complaint of word finding difficulty. Patient stated that his symptoms started about 48 hours ago which she is describing as cannot think right, struggling with word finding. He has not noticed any slurring of speech, facial droop, fever, nausea, vomiting chest pain or shortness of breath. He is vaccinated for COVID-19. Today he woke up feeling very estranged. He grabbed his phone in his hand but could not think what he wanted to type. He lives alone, smokes 1 pack/day. No previous history of CHF, IL, stroke or cancer. No recent use of antibiotics, no febrile episodes. No recent falls or syncopal/seizure activities. No headache, he does have carbon monoxide detector in his home no recent burning around his home. In the ER NIH zero, work-up is negative, patient stating that he still struggling to find appropriate words to describe his events he will be admitted for observation, CTA head and neck B12, TSH requested along A1c and lipid panel. He was hemodynamically stable at the time of my evaluation, was asking for food. Hyperglycemia without signs of DKA, he does have leukocytosis with polycythemia Review of records revealed that he has been polycythemic since 2019 requested erythropoietin, iron panel Does not use oxygen at home, currently doing well on room air Tachycardia, leukocytosis, will request D-dimer Review of Systems Const: Denies: fever(s) Eyes: Denies: change in vision ENMT: Denies: throat pain Card: Denies: chest pain Resp: Denies: dyspnea GI: Denies: abdominal pain : Denies: flank pain Musc: Denies: neck pain Skin/Breast: Denies: rash Neuro: Denies: headache(s) Psych: Denies: anxiety Endo: Denies: polyuria Stewart/Lymph: Denies: easy bruising All/Imm: Denies: urticaria Medications/Allergies Home Medications Medication Instructions Recorded Confirmed Last Taken Type famotidine 40 mg PO DAILY #14 tab 04/18/20 Unknown Rx Allergies Allergy/AdvReac Type Severity Reaction Status Date / Time No Known Allergies Allergy Verified 04/18/20 19:20 PFSH Acute PFSH: Medical History Diabetes Hypertension Surgical History History of testicular surgery Family History Denies family history of Hyperlipidemia Psychiatric illness Lung disease Hypertension Social History Smoking and tobacco status: current every day smoker Alcohol intake: never Substance/Drug Use: never Lives independently: Yes Housing: House Vitals/I&O/Wt Last Vital Signs Temp 98.7 F 04/22/21 17:14 Pulse 114 H 04/22/21 17:14 Resp 14 04/22/21 17:14 BP 173/93 04/22/21 17:14 Pulse Ox 99 04/22/21 17:14 Weight last 48 hrs Weight 81.647 kg Physical Exam Narrative: EXAM NARRATIVE: NIH zero Awake and alert Clinically looks dehydrated Hyperemic conjunctivo- Saturating well on room air No active stridor or wheezing Abdomen soft Lower symmetry no edema Appropriate grooming No focal deficits Appropriate mood and affect Fatigue and lethargy positive Data : 04/22/21 20:40 04/22/21 20:40 A&P Assessment and plan (1) Acute confusion: Status: Acute (2) Polycythemia: Status: Acute Additional A&P Information Word finding difficulty No active strokelike symptoms History of hypertension and diabetes No previous history of IL, CHF or cancer We will check B12, TSH, requested CTA head and neck Does seem to have chronic polycythemia, check erythropoietin level, iron panel, TIBC Polycythemia can present with hyperviscosity syndrome however patient is denying vision changes, NIH zero CT head unremarkable Work-up is unremarkable other than leukocytosis and tachycardia for which I request D-dimer, in case of cardiac please request CTA chest for PE For sinus tachycardia we will give him fluid challenge to see if that would resolve his sinus tachycardia We will check carbon monoxide level Chest x-ray unremarkable increased vascular marking UA unremarkable No signs of meningitis or encephalitis He is vaccinated for COVID-19 Cardiac diet DVT prophylaxis Lovenox Full code Start aspirin and Plavix for possible TIA Sinus tachycardia and leukocytosis could be secondary to dehydration, I do not suspect sepsis at this point Attestations Medical Necessity Statement*: Anticipating discharge within 48 hours Time Spent in Patient Care: Greater than 35 minutes Coding Level of Care Code Acute Gastroenterology Physician for Betsyg Fwd Diagnoses Acute confusion R41.0 Polycythemia D75.1
[2021-04-22 22:17] VITALS: BP 171/113; PULSE 101; RESP 18; O2SAT 99
[2021-04-22] MEDS: aspirin 81 mg Chew Tablet 324 MG PO (22:32)
[2021-04-22 22:35] VITALS: BP 146/86
[2021-04-22 23:12] VITALS: BP 149/88; PULSE 101; RESP 18; O2SAT 97
[2021-04-22 23:22] LABS: Troponin 5 2HR 9.58 ng/L (0-15); Troponin 5 2HR Delta 1.58 ABS# (0-10)
[2021-04-22 23:35] LABS: D Dimer 0.29 ug/mIFEU (0-0.59)
[2021-04-22 23:42] LABS: NT Pro B Type Natriuretic Pept 34 pg/mL (0-125)
[2021-04-22 23:51] LABS: Procalcitonin 0.08 ng/mL (0-0.5); Prolactin 4.02 ng/mL (4.0-15.2); Thyroid Stimulating Hormone 2.62 uIU/mL (0.27-4.20); Vitamin B12 578 pg/mL (232-1245)
[2021-04-23 00:02] LABS: Chol HDL Ratio 4.51 mg/dL (1.0-5.00); Cholesterol 158 mg/dL (0-200); HDL Cholesterol 35 mg/dL (60-100); LDL Cholesterol Calculated 86 mg/dL (50-129); LDL HDL Ratio 2.46 RATIO (0.00-3.22); Triglycerides 187 mg/dL (0-150)
--- NOTE | 2021-04-23 00:14 | CTR_ITS ---
PROCEDURE INFORMATION: Exam: CT Angiography Head With Contrast, Arteriography Exam date and time: 04/23/2021 12:14 AM Age: 60 years old Clinical indication: Cognitive deficit; Communication deficit; Additional info: Word finding difficulty TECHNIQUE: Imaging protocol: Computed tomography angiography of the head with contrast. Exam focused on the arteries. 3D rendering (Not supervised by radiologist): MIP and/or 3D reconstructed images were created by the technologist. Radiation optimization: All CT scans at this facility use at least one of these dose optimization techniques: automated exposure control; mA and/or kV adjustment per patient size (includes targeted exams where dose is matched to clinical indication); or iterative reconstruction. Contrast material: OMNI 350; Contrast volume: 95 ml; Contrast route: INTRAVENOUS (IV); COMPARISON: CT head wo con* [id number] 04/22/2021 6:54 PM RADIATION DOSE METRICS: Total DLP (mGy-cm): 2582.57 FINDINGS: ANTERIOR CIRCULATION: Right internal carotid artery: There is focal [id number]-oy-bfajqjfv stenosis along the mid petrous segment of the right internal carotid artery. No aneurysm. Right middle cerebral artery: Unremarkable. No occlusion or significant stenosis. No aneurysm. Right anterior cerebral artery: Unremarkable. No occlusion or significant stenosis. No aneurysm. Left internal carotid artery: Unremarkable. Intracranial segment is patent with no significant stenosis. No aneurysm. Left middle cerebral artery: Unremarkable. No occlusion or significant stenosis. No aneurysm. Left anterior cerebral artery: Unremarkable. No occlusion or significant stenosis. No aneurysm. POSTERIOR CIRCULATION: Right vertebral artery: Unremarkable. No occlusion or significant stenosis. No aneurysm. Left vertebral artery: Unremarkable. No occlusion or significant stenosis. No aneurysm. Basilar artery: Unremarkable. No occlusion or significant stenosis. No aneurysm. Right posterior cerebral artery: Unremarkable. No occlusion or significant stenosis. No aneurysm. Left posterior cerebral artery: Unremarkable. No occlusion or significant stenosis. No aneurysm. Brain: No definite mass, mass effect, or midline shift. Cerebral ventricles: No ventriculomegaly. Bones/joints: Unremarkable. No acute fracture. Soft tissues: Unremarkable. IMPRESSION: 1. Focal [id number]-[id number] stenosis along the mid petrous segment of the right internal carotid artery. 2. No large vessel occlusion. PROCEDURE INFORMATION: Exam: CT Angiography Neck With Contrast Exam date and time: 04/23/2021 12:14 AM Age: 60 years old Clinical indication: Cognitive deficit; Communication deficit; Additional info: Word finding difficulty TECHNIQUE: Imaging protocol: Computed tomography angiography of the neck with contrast. 3D rendering (Not supervised by radiologist): MIP and/or 3D reconstructed images were created by the technologist. Radiation optimization: All CT scans at this facility use at least one of these dose optimization techniques: automated exposure control; mA and/or kV adjustment per patient size (includes targeted exams where dose is matched to clinical indication); or iterative reconstruction. Contrast material: OMNI 350; Contrast volume: 95 ml; Contrast route: INTRAVENOUS (IV); COMPARISON: CT head wo con* [id number] 04/22/2021 6:54 PM RADIATION DOSE METRICS: Total DLP (mGy-cm): 2582.57 FINDINGS: Right common carotid artery: No stenosis. No dissection or occlusion. Right internal carotid artery: There is mild stenosis of the right carotid bulb. There is focal rnnb-ew-ixoltjgl stenosis along the mid petrous segment of the right internal carotid artery. Right external carotid artery: No occlusion or stenosis of the origin. Left common carotid artery: No stenosis. No dissection or occlusion. Left internal carotid artery: There is focal severe stenosis at the origin of the left internal carotid artery. Left external carotid artery: No occlusion or stenosis of the origin. Right vertebral artery: No stenosis. No dissection or occlusion. Left vertebral artery: No stenosis. No dissection or occlusion. Soft tissues: Normal. No significant soft tissue swelling. Bones/joints: Degenerative changes of the spine seen. Lungs: Paraseptal emphysema is present. CT/CT angio headneck* [id number] IMPRESSION: 1. Focal severe stenosis at the origin of the left internal carotid artery. 2. Focal mild stenosis at the right carotid bulb. REFERENCES: NASCET CRITERIA. The degree of internal carotid artery stenosis is based on NASCET criteria. Normal is no stenosis. Mild is less than 50% stenosis. Moderate is 50-69% stenosis. Severe is 70% to 99% stenosis. Total occlusion is no detectable patent lumen. Radiation Dose CTDIVOL = (mGy): DLP = 2582.57~2582.57 (mGy-cm)
[2021-04-23 00:15] VITALS: BMI 26.4; BMI 28.1
[2021-04-23 00:17] VITALS: BP 131/78; PULSE 99; RESP 17; TEMP 36.7; O2SAT 92
--- NOTE | 2021-04-23 00:21 | ECG_ITS ---
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 Measurements Intervals [place] Rate: 115 P: 68 DE: 132 QRS: 59 QRSD: 77 T: 81 QT: 312 QTc: 432 Interpretive Statements SINUS TACHYCARDIA POSSIBLE LEFT ATRIAL ENLARGEMENT [-0.1mV P-WAVE IN V1/V2] SEPTAL MYOCARDIAL INFARCTION , OF INDETERMINATE AGE [40+ ms Q WAVE IN V1/V2] Compared to ECG 04/18/2020 21:59:49 Sinus rhythm no longer present Ventricular premature complex(es) no longer present Myocardial infarct finding still present Electronically Signed On 04-24-2021 17:48:56 BUSINESS SERVICES CLERK by Jose Moise M.D. [email or web address] Labmer[id number] f
[2021-04-23] MEDS: sodium chloride 0.9% 1,000 ML 75 ML IV ×2 (00:49→14:25)
[2021-04-23] MEDS: enoxaparin 40 mg/0.4 mL Syringe SUBCUT (00:49)
[2021-04-23 00:51] LABS: Ammonia 36 umol/L (16-60)
[2021-04-23 01:32] LABS: Ferritin 278 ng/mL (30-400); Iron 78 ug/dL (59-158); Percent Saturation 33.6 % (20-50); Total Iron Binding Capacity 232 mcg/dl; Unsaturated Iron Binding 154 ug/dL (112-347)
[2021-04-23] MEDS: iohexol 350 mg/mL 100 mL Btl IV (01:57)
[2021-04-23 03:40] LABS: Basophils # 0.1 10^3/uL (0.0-0.1); Basophils % 0.5 %; Eosinophils # 0.3 10^3/uL (0.0-0.8); Eosinophils % 2.2 %; Hematocrit 47.2 % (42.0-52.0); Lymphocytes # 4.2 10^3/uL (0.8-4.8); Mean Corpuscular HGB Conc 33.9 g/dL (30.0-36.0); Mean Corpuscular Hemoglobin 28.6 pg (28.0-34.0); Mean Corpuscular Volume 84.4 fl (80-94); Mean Platelet Volume 11.6 fL (7.4-10.4); Neutrophils # 6.79 10^3/uL (1.8-7.7); Neutrophils % 54.7 %; Nucleated Red Blood Cells % 0 %; Platelet Count 231 10^3/cmm (130-400); Red Blood Count 5.59 10^6/uL (4.1-5.3); Red Cell Distribution Width 11.9 % (12.1-15.1); White Blood Count 12.4 10^3/uL (4.0-10.0)
[2021-04-23 03:53] LABS: Estmated Average Glucose 292; Hemoglobin A1C 11.8 % (4.0-6.0)
[2021-04-23 04:06] LABS: Blood Urea Nitrogen 18 mg/dL (6-20); C Reactive Protein 8.2 mg/L (0.0-4.9); Calcium 8.5 mg/dL (8.5-10.5); Carbon Dioxide 28 mmol/L (22-29); Chloride 94 mmol/L (98-107); Glomerular Filtration Rate 98.9 mL/min (90-130); Glucose 430 mg/dL (65-115); Magnesium 1.9 mg/dL (1.7-2.3); Osmolality Calculated 294 mOsm/kg (285-295); Sodium 132 mmol/L (136-145)
[2021-04-23 04:16] LABS: Anion Gap 14.2 (5-19); Potassium 4.2 mmol/L (3.5-5.1)
[2021-04-23 04:17] VITALS: BP 128/74; PULSE 90; RESP 17; TEMP 36.6; O2SAT 91
[2021-04-23 04:40] LABS: Troponin 5 6HR 11.04 ng/L (0-15); Troponin 5 6HR Delta 3.04 ng/L (0-12)
--- NOTE | 2021-04-23 05:02 | PC.NURSE ---
This nurse answered the call light at approx 0430 and pt stated he need to use the bathroom, this nurse assisted him to the bathroom, while walking back to the bed this nurse observed that his pants were wet all down the front, this nurse helped the patient back into bed and observed his face nancy twitch, I turned the overhead light on to get a better look and noticed his tongue was thrashing around in his mouth and the whole right side of his face was twitching and appeared to be seizure like activity, I immediately grabbed another nurse, that nurse stayed with the patient while I went to get the charge nurse, once we entered the room the seizure like activity had stopped, the seizure lasted 2-3 minutes total, the physician was notified and N/O were given for neuro's Q4hrs and ativan PRN, we as a team of nurses padded the patients rails, got suction set up, made sure oxygen tubing was hooked up and available, and cleaned the patient up, when this nurse did her initial neuro assessment the patient responded to voice, and was alert to person.
--- NOTE | 2021-04-23 05:08 | USCV_ITS ---
Tom Lyons Age: 60 Gender: M : 1960 Exam Date: 04/23/2021 14:50 Ordering Phys: Ori Srinivasan MD Technologist: JCARLOS [place] [facility] [place] [place]: TIA BP: 123 / 73 HR: 106 Rhythm: Sinus Technical Quality: Adequate MEASUREMENTS (Male / Female) Normal Values 2D ECHO LV Diastolic Diameter PLAX 4.1 cm 4.2 - 5.9 / 3.9 - 5.3 cm LV Systolic Diameter PLAX 2.7 cm IVS Diastolic Thickness 1.0 cm 0.6 - 1.0 / 0.6 - 0.9 cm IVS Systolic Thickness 1.3 cm LVPW Diastolic Thickness 1.1 cm 0.6 - 1.0 / 0.6 - 0.9 cm LVPW Systolic Thickness 1.1 cm LVOT Diameter 2.0 cm LV Ejection Fraction 2D Teich 62.1 % LV Ejection Fraction MOD 2C 61.8 % LV Ejection Fraction 2C AL 61.6 % LA Diameter 2.3 cm LA Width 3.4 cm LA Height 4.3 cm RA Width 3.3 cm RA Height 3.6 cm Aorta at Sinotubular Diameter 2.4 cm M-MODE Aortic Annulus Diameter 3.2 cm LA Ao Ratio MM 0.7 MV E Point Septal Separation 1.5 cm DOPPLER AV Peak Velocity 116.0 cm/s LVOT Peak Velocity 93.0 cm/s AV Area Cont Eq vti 3.2 cm squared AV Area Cont Eq pk 2.5 cm squared MV E' Velocity 6.0 cm/s TR Peak Velocity 217.0 cm/s TR Peak Gradient 18.8 mmHg TV Peak E Velocity 77.0 cm/s PV Peak Velocity 155.0 cm/s FINDINGS Left Ventricle Technically limited quality echocardiogram. Normal left ventricular size. LV systolic function is normal with EF of 60 to 65%. No regional wall motion abnormalities. Grade 1 diastolic dysfunction. Right Ventricle The right ventricle is normal in size and function. Right Atrium Not well-visualized Left Atrium The left atrium is normal in size. Mitral Valve Thickened mitral valve without significant stenosis or prolapse. There is trace mitral regurgitation. Aortic Valve Grossly normal without significant sclerosis or stenosis. There is no aortic regurgitation. Tricuspid Valve Grossly normal. No significant stenosis. Insufficient TR jet to evaluate RVSP. Pulmonic Valve Not well-visualized Pericardium Normal pericardium without effusion. Aorta Normal ascending aorta dimension. CONCLUSIONS This is technically limited quality echocardiogram because of poor ultrasonic windows. LV systolic function is normal with EF of 60 to 65%. Grade 1 diastolic dysfunction. Thickened mitral valve. Trace mitral regurgitation. No comparison studies are available Jose Moise MD (Electronically Signed) Final Date: 23 April 2021 15:44 S
[2021-04-23 07:43] VITALS: BP 131/73; PULSE 111; RESP 16; TEMP 36.9; O2SAT 93
--- NOTE | 2021-04-23 08:03 | PC.NURSE ---
Nurse walked into patient's room and he was leaned to the left side of bed. He had spilled his water and his armed were contracted. Patient was confused and could not follow directions. It took several minutes before he could tell the nurses his name. Called and informed Dr. Choe.
--- NOTE | 2021-04-23 08:44 | MR_ITS ---
WS: [id number] MRI BRAIN WITHOUT CONTRAST HISTORY: CVA COMPARISON: 04/22/2021 TECHNIQUE: Diffusion imaging, multiplanar T1, T2 and FLAIR imaging obtained. Acute infarct centered in the LEFT frontal cortex above the level of the ventricles. There are a few susceptibility artifacts present consistent with a small amount of associated hemorrhage. There is in creased T2 signal surrounding the infarct. The acute infarct involves both the subcortical white eliana er and cortex. Otherwise very mild atrophy and a few scattered T2 and FLAIR signal hyperintensities from prior small vessel ischemic events. Ventricles and extra-axial spaces are normal. No inferior displacement of cerebellar tonsils. The sella turcica and pituitary gland are unremarkabl e. Dural venous sinuses and [place] of [place] demonstrate no abnormality on this unenhanced studies. Paranasal sinuses: Clear. Mastoid air cells: Normal. Calvarium and scalp: Intact. MR/MR head wo con* [id number] IMPRESSION: 1. Focal infarct involving the LEFT frontal lobe above the lateral ventricles. Small hemorrhagic component. No midline shift. ADC map suggests this may be an older infarct then just a few days. With the hemorrhagic component underlying vascular malformation or early neoplasm should be considered. No vascular malfo rmation was noted on the recent CT of 04/23/2021. Consider follow-up MRI brain with and without contrast in 2-3 weeks. 2. Otherwise mild atrophy and mild chronic microvascular ischemic disease.
--- NOTE | 2021-04-23 10:18 | PC.OT ---
OT EVALUATION ATTEMPTED. PATIENT IS SLEEPING SOUNDLY. WILL ATTEMPT AGAIN AT A LATER TIME.
[2021-04-23] MEDS: aspirin 81 mg EC Tablet PO (10:54)
[2021-04-23] MEDS: clopidogrel 75 mg Tablet PO (10:54)
--- NOTE | 2021-04-23 11:03 | P.PN_ITS ---
Subjective Subjective: Interval history: History and physical reviewed. Tom reports his biggest concern is he cannot speak right. He asked that I call his uncle to give him any kind of medical report. He believes his symptoms have been going on 2 days. From my understanding this morning he got up and ambulated to the bathroom, and had worsening symptoms of right facial droop, confusion. Medications: Reviewed: Yes Vitals/I&O/Wt Last Vital Signs Temp 98.4 F 04/23/21 07:43 Pulse 111 H 04/23/21 07:43 Resp 16 04/23/21 07:43 BP 131/73 04/23/21 07:43 Pulse Ox 93 04/23/21 07:43 04/22/21 04/23/21 04/23/21 22:59 06:59 14:59 Intake Total 460 / 460 360 / 360 Output Total 500 / 500 Balance 460 / 460 -140 / -140 Weight last 48 hrs Weight 76.43 kg Weight 81.647 kg Weight 81.647 kg Physical Exam Narrative: EXAM NARRATIVE: General exam no distress Neurologic: Right facial droop is noted. Right hand neglect with some slight weakness noted. More difficulty with [id number] on that side. I did not get him up to ambulate him. Overall no tremor, or difficulty with cerebellar function in the lower extremities. Some issues with word finding ability. Neck supple Cardiovascular regular rate and rhythm, no murmur Lungs clear Abdomen is soft, positive bowel sounds Extremities no cyanosis clubbing or edema Data : 04/23/21 03:25 04/23/21 03:25 A&P Assessment and plan (1) CVA (cerebral vascular accident): Appears to have CVA, not candidate for TPA as symptoms started greater than 24 hours ago CTA demonstrates tight stenosis left internal carotid, proximally Plavix, aspirin, statin Therapy consultations Neurology consultation Will try to determine timing of possible carotid surgery. Likely 1-2 weeks Echocardiogram Telemetry Neurochecks Hydration Check MRI head. Not appropriate for discharge today. Has some waxing and waning symptoms of increased confusion/neurologic signs when he got up to the bathroom this morning. Status: Acute (2) Diabetes: Sliding scale insulin Hemoglobin A1c 11.8. Status: Acute (3) Tobacco dependency: Encourage abstinence Status: Acute Additional A&P Information Polycythemia. Correcting with hydration. This is likely secondary to his tobacco dependency. Full code Lovenox for DVT prophylaxis Attestations Medical Necessity Statement*: Continued hospital stay secondary to CVA, with some waxing and waning symptoms. Coding Level of Care Code Acute Behavior Interventionist for Katiana Mcclain Diagnoses CVA (cerebral vascular accident) I63.9 Diabetes E11.9 Tobacco dependency F17.200
[2021-04-23 12:00] VITALS: BP 129/74; PULSE 108; RESP 18; TEMP 36.9; O2SAT 98
--- NOTE | 2021-04-23 13:01 | PC.PT ---
Hold PT evaluation today per MD. Will reattempt tomorrow.
[2021-04-23 14:10] LABS: Glucose Point of Care 459 mg/dL (70-110)
[2021-04-23] MEDS: insulin lispro 100 unit/1 mL SUBCUT ×3 (14:25→21:54)
--- NOTE | 2021-04-23 14:33 | PC.NURSE ---
Patient states that he had been a diagnosed with diabetes several years ago. He does not have a pcp and has never checked his blood sugar at home. He states that he strictly drinks regular soda and eats a lot of sugary snacks. His blood sugar was 459 when checked after MRI. Patient's family brought him snack cakes and regular soda. Informed family that patient needs to watch the sugar intake. Informed Dr. Choe.
[2021-04-23 16:00] VITALS: BP 132/76; PULSE 81; RESP 18; TEMP 36.7; O2SAT 97
[2021-04-23] MEDS: insulin glargine 100 units/1 mL 10 UNIT SUBCUT ×2 (16:13→21:58)
--- NOTE | 2021-04-23 16:33 | PC.PHAR ---
pt states he takes care of his own medications-pt states he hasnt taken his metformin for about 3 weeks-pts [facility] med [facility] hctz as a non va medication pt states he doesnt take that medication states the va wont send it to him
[2021-04-23 16:57] LABS: Glucose Point of Care 288 mg/dL (70-110)
[2021-04-23 20:00] VITALS: BP 116/73; PULSE 118; RESP 18; TEMP 37.3; O2SAT 92
--- NOTE | 2021-04-23 20:00 | P.CONIM_ITS ---
Providers/Reason For Consult Consulting Physician/Specialty*: Ellis Choe Reason for Consult*: Acute left middle cerebral artery stroke Attending Physician: Ellis Choe MD History of Present Illness History of Present Illness Dr. Choe asked me to see this 60-year-old man with critical left carotid stenosis and a recent stroke. He came to the emergency department 04/22/2021 at 1740 1 in the afternoon reporting strokelike symptoms for almost 24 hours. He was having trouble texting, felt confused and had trouble walking. He had no focal weakness. Dr. Mckeon found an NIH stroke scale score of 0 but thought that the patient should come in for observation based on concern for cerebral ischemia. CT scan of the head was negative in the emergency department except for an old left frontal stroke. Around 4:30 in the morning today patient had an episode of right sided twitching and brief weakness of the right side of the face. The patient had CT angiogram today that showed severe stenosis at the origin of the left internal carotid artery. There was nonsignificant stenosis of the right carotid bulb and right carotid artery along the mid petrous segment. MRI of the brain performed this afternoon shows a focal stroke in left middle cerebral artery anterior branch distribution. Reviewing the head CT from last night, this is the same region that was read as an old infarct in the left frontal lobe. This looks like it several days old with a little bit of petechial hemorrhage. This is not a large brain hemorrhage. This lesion is consistent with an embolic stroke. This is the younger brother of patient that I took care of for many years with severe hypertension. This 60-year-old man cannot say for sure how long ago he started having trouble finding words but he thinks it has been 3 or 4 days may be. He is aware of the findings from his CTA and his MRI. If he is going to have surgery he would rather it would be local. He has [facility] benefits and is 90% service-connected. Review of Systems Const: Denies: fever(s) or chills Eyes: Denies: change in vision ENMT: Denies: throat pain or odynophagia Card: Denies: chest pain, palpitations, irregular heart rhythm, edema or syncope Resp: Reports: dyspnea, productive cough and other (He wants to quit smoking) GI: Reports: abdominal pain (Not recently) : Reports: difficulty urinating (Enlarged prostate) and difficulty starting urination Musc: Reports: neck pain and back pain (Chronic neck and back pain) Skin/Breast: Denies: rash Neuro: Reports: difficulty communicating thoughts; Denies: weakness in extremities, sensory changes, lack of coordination or behavioral changes Psych: Denies: anxiety or depression Endo: Reports: other (He is diabetic) Stewart/Lymph: Reports: other Meds/Allergies Home Medications and Allergies Home Medications Medication Instructions Recorded Confirmed Last Taken Type cholecalciferol (vitamin D3) 50 mcg PO DAILY PRN 04/23/21 04/23/21 Unknown History [Vitamin D3] metformin 500 mg PO BID 04/23/21 04/23/21 Unknown History Allergies Allergy/AdvReac Type Severity Reaction Status Date / Time No Known Allergies Allergy Verified 04/18/20 19:20 Current Medications Current Medications Generic Name Dose Route Start Last Admin Trade Name Freq PRN Reason Stop Dose Admin Aspirin 81 mg 04/23/21 09:00 04/23/21 10:54 Aspirin 81 Mg Ec Tablet PO 81 mg DAILY KATHERINE Administration Clopidogrel Bisulfate 75 mg 04/23/21 09:00 04/23/21 10:54 Clopidogrel 75 Mg Tablet PO 75 mg DAILY KATHERINE Administration Enoxaparin Sodium 40 mg 04/23/21 00:14 04/23/21 00:49 Enoxaparin 40 Mg/0.4 Ml Syringe SUBCUT 40 mg Q24H KATHERINE Administration Sodium Chloride 1,000 mls @ 100 mls/hr 04/22/21 23:30 04/23/21 14:25 Sodium Chloride 0.9% IV 75 mls/hr .Q10H KATHERINE Administration Insulin Human Lispro 0 unit 04/23/21 12:00 04/23/21 17:59 Insulin Lispro 100 Unit/1 Ml SUBCUT 10 unit WM&BEDTIME KATHERINE Administration Protocol PFSH Acute PFSH: Medical History (Updated 04/23/21 @ 20:44 by Chelsie Gordon MD) Diabetes Hypertension Surgical History History of testicular surgery Family History Denies family history of Hyperlipidemia Psychiatric illness Lung disease Hypertension Social History Smoking and tobacco status: current every day smoker Alcohol intake: never Substance/Drug Use: never Lives independently: Yes Housing: House Vitals/I&O/Wt Last Vital Signs Temp 98.1 F 04/23/21 16:00 Pulse 81 04/23/21 16:00 Resp 18 04/23/21 16:00 BP 132/76 04/23/21 16:00 Pulse Ox 97 04/23/21 16:00 04/23/21 04/23/21 04/23/21 06:59 14:59 22:59 Intake Total 460 / 460 1840 / 1840 720 / 2560 Output Total 500 / 500 Balance 460 / 460 1340 / 1340 720 / 2060 Weight last 48 hrs Weight 168 lb 8 oz Weight 180 lb Weight 180 lb Physical Exam Narrative: EXAM NARRATIVE: GENERAL: The patient was [well-nourished] with a healthy appearance in hospital attire. MENTAL STATUS: Subjectively he experiences word searching. He seems fluent. He has a quiet demeanor. He follows a three-step command. He asks good questions. CRANIAL NERVES: [Visual acuity not tested.] Visual damico were full to confrontation, direct and consensual. Extraocular movements were full without nystagmus. PERRLA. Face was symmetric at rest and with grimace. Facial sensation was intact in all three distributions of the fifth cranial nerve bilaterally to touch. Tongue and palate were midline at rest and with protrusion of the tongue and elevation of the palate. Shoulders were symmetric at rest and with shoulder shrug. MOTOR: There was no drift of the extended arms. Fine movements in the hands were rapid and symmetric. Toe tapping was rapid and symmetric. Power was [5]/5 in all the muscles of all four extremities tested individually. Bulk and tone were normal. There was no atrophy. SENSATION: Pin intact in the four extremities distally. COORDINATION: Normal. DEEP TENDON REFLEXES: 2/4 throughout. GAIT: Not tested HEENT: He has only a few remaining teeth. Neck: Supple. No palpable nodes. CARDIOVASCULAR: The heart sounds were normal without murmur or gallop. Regular rate and rhythm. Chest: Clear to auscultation Extremities: No deformities A&P Assessment and plan (1) Left acute arterial ischemic stroke, MCA (middle cerebral artery): He has a left middle cerebral artery stroke that is probably a couple of days old. There is some tiny petechial hemorrhage within it. The origin is almost certainly artery to artery embolus from his severe left carotid artery stenosis at the origin of the internal carotid artery. Ample data document that he should have surgical treatment within 2 weeks. The patient is in favor but he would like to stay here if possible. He understands that Dr. Scott will not return until next week and with the holiday, that might be better. I emphasized that he absolutely cannot go home and smoke. In the meantime, we should be able to get his blood sugar under better control. I think is a good idea to leave him on Lovenox subcu until the time of surgery. He had an orthostatic TIA early this morning. He is on IV fluids, antiplatelet therapy and atorvastatin. If he has any further events we will be pressed to find a place for him to have surgery urgently. [facility] and we may need to check as the [facility] may want him to go to [place] or [place] for surgical treatment. Status: Acute (2) Left carotid stenosis: Status: Acute Consult Attestations Medical Necessity Statement: Acute stroke with critical carotid stenosis Time Spent in Patient Care: Greater than 35 minutes (>than 50% of time spent in counselling and/or direct pt care on unit) . 70 minutes Other Attestations: Other Attestations: I reviewed all of his imaging studies. I went over all of his records. I talked with the patient, performed an exam and did this documentation. Coding Level of Care Code Acute Licensing Manager for Katiana Mcclain Diagnoses Left acute arterial ischemic stroke, MCA (middle cerebral artery) I63.512 Left carotid stenosis I65.22
--- NOTE | 2021-04-23 20:48 | PC.NURSE ---
i reported to nurse high pulse 118
[2021-04-23 21:34] LABS: Glucose Point of Care 134 mg/dL (70-110)
[2021-04-23 21:34] LABS: Glucose Point of Care 267 mg/dL (70-110)
[2021-04-23] MEDS: atorvastatin 40 mg Tablet 80 MG PO (21:53)
[2021-04-24] VITALS (9 sets, daily range): BP systolic 110–168; BP diastolic 69–82; PULSE 93–118; RESP 17–18; TEMP 36.5–37.3; O2SAT 92–98
--- NOTE | 2021-04-24 00:21 | PC.NURSE ---
i reported high pulse 106 to nurse
[2021-04-24] MEDS: sodium chloride 0.9% 1,000 ML 75 ML IV ×3 (00:29→20:28)
[2021-04-24] MEDS: enoxaparin 40 mg/0.4 mL Syringe SUBCUT (00:29)
--- NOTE | 2021-04-24 05:15 | PC.NURSE ---
i reported high pulse 102 to nurse
[2021-04-24 05:18] LABS: Basophils # 0.1 10^3/uL (0.0-0.1); Basophils % 0.5 %; Eosinophils # 0.3 10^3/uL (0.0-0.8); Eosinophils % 2.4 %; Hematocrit 44.8 % (42.0-52.0); Lymphocytes # 4.4 10^3/uL (0.8-4.8); Lymphocytes % 37.2 %; Mean Corpuscular HGB Conc 33.5 g/dL (30.0-36.0); Mean Corpuscular Hemoglobin 28.4 pg (28.0-34.0); Mean Corpuscular Volume 84.8 fl (80-94); Mean Platelet Volume 11.6 fL (7.4-10.4); Monocytes # 0.9 10^3/uL (0.2-0.9); Neutrophils # 6.05 10^3/uL (1.8-7.7); Neutrophils % 51.1 %; Nucleated Red Blood Cells % 0 %; Platelet Count 216 10^3/cmm (130-400); Red Blood Count 5.28 10^6/uL (4.1-5.3); Red Cell Distribution Width 11.8 % (12.1-15.1); White Blood Count 11.8 10^3/uL (4.0-10.0)
[2021-04-24 05:38] LABS: Alanine Aminotransferase 20 U/L (0-41); Albumin Level 3.1 g/dL (3.5-5.2); Alkaline Phosphatase 111 IU/L (40-130); Anion Gap 11.5 (5-19); Aspartate Amino Transferase 14 U/L (0-40); Blood Urea Nitrogen 11 mg/dL (6-20); Calcium 7.9 mg/dL (8.5-10.5); Carbon Dioxide 23 mmol/L (22-29); Chloride 103 mmol/L (98-107); Globulin 2.9 g/dL (1.3-4.6); Glomerular Filtration Rate 137.9 mL/min (90-130); Glucose 170 mg/dL (65-115); Osmolality Calculated 281 mOsm/kg (285-295); Potassium 3.5 mmol/L (3.5-5.1); Sodium 134 mmol/L (136-145); Total Bilirubin 0.3 mg/dL (0.15-1.2)
[2021-04-24 06:33] LABS: Glucose Point of Care 376 mg/dL (70-110)
[2021-04-24] MEDS: clopidogrel 75 mg Tablet PO (08:24)
[2021-04-24] MEDS: aspirin 81 mg EC Tablet PO (08:24)
[2021-04-24] MEDS: insulin lispro 100 unit/1 mL SUBCUT ×3 (08:25→21:21)
--- NOTE | 2021-04-24 10:26 | PC.CHAP ---
Pastoral Care Encounter/Spiritual Assessment Type of Contact [] Declined superintendent laundry visit [] Patient/Family/Request visit [] Outpatient visit [] Follow-up visit [] Physician referral [] Code/Alert [x] Routine visit [] Staff referral [] Actively dying [x] Patient sleeping [] Family support [] [] Out of room [] Palliative care [] [] Receiving care in room [] Pre-surgical visit [] Trauma [] Long length of stay [] ICU visit [] Other: Relational/Emotional Strength [] Patient feels connected with others/family/visitors/staff [] Distress [] Loneliness/isolation [] Abandonment Spirituality of Patient [] Person of Ayala [] Attends Mormonism of their Ayala [] Believes in Prayer [] Reads Bible or Mu-Ism materials [] There are Spiritual issues to be addressed Senior Test Analyst Interventions [] Prayer [] Active listening [] Non-anxious presence [] Spiritual/emotional support [] Crisis/trauma care [] Spiritual counseling [] Bereavement support [] Provided bereavement packet [] Provided Bible/devotional materials [] Provided toy/stuffed animal, coloring book to patient or family member [] Provided Communion [] Anointing/[place] [] Salvation [] Completed spiritual assessment [] Other: Impact on Illness or Injury [] Angry [] Fearful [] Anxious [] Often cries [] Exhaustion [] Unable to work [] Unable to attend muslim [] Unable to walk/stand [] Unable to read [] Unable to drive [] Unable to eat/drink [] Unable to sleep [] Unable to be with family [] Patient intubated [] Other: Summary Time spent with patient
--- NOTE | 2021-04-24 10:36 | PM.PN ---
Subjective Subjective: Interval history: Tom reports he feels somewhat better today. Discussed with him his current hospital course and plans. No chest pain. No headache. Medications: Reviewed: Yes Vitals/I&O/Wt Last Vital Signs Temp 97.7 F 04/24/21 08:00 Pulse 93 04/24/21 08:00 Resp 17 04/24/21 08:00 BP 159/79 04/24/21 08:00 Pulse Ox 96 04/24/21 08:00 04/23/21 04/24/21 04/24/21 22:59 06:59 14:59 Intake Total 720 / 2560 1075 / 3635 1033.75 / 1033.75 Output Total 680 / 1180 980 / 2160 400 / 400 Balance 40 / 1380 95 / 1475 633.75 / 633.75 Weight last 48 hrs Weight 76.43 kg Weight 81.647 kg Weight 81.647 kg Physical Exam Narrative: EXAM NARRATIVE: General exam no distress Neurologic: Right facial droop is noted. Right hand neglect with some slight weakness noted. Word finding ability is improved. [id number] appears improved. Neck supple Cardiovascular regular rate and rhythm, no murmur Lungs clear Abdomen is soft, positive bowel sounds Extremities no cyanosis clubbing or edema Data : 04/24/21 04:49 04/24/21 04:49 A&P Assessment and plan (1) CVA (cerebral vascular accident): Left frontal lobe CVA, with a very small hemorrhagic component noted on MRI. Not candidate for TPA as symptoms started greater than 24 hours ago CTA demonstrates tight stenosis left internal carotid, proximally Plavix, aspirin, statin Therapy consultations Appreciate neurology consultation Will try to determine timing of possible carotid surgery. Likely 1-2 weeks Echocardiogram demonstrated EF 60 to 65%, grade 1 diastolic dysfunction, no obvious thrombus. Technically difficult. Continue telemetry. No evidence of arrhythmia noted currently. Neurochecks Continue hydration Appropriate for up today with physical therapy to determine if any needs will be warranted with therapy at home or if any recurrent neurologic symptoms Status: Acute (2) Diabetes: Sliding scale insulin. Change to aggressive. Increase Lantus Hemoglobin A1c 11.8. Nurses to work on education, including insulin injection. Status: Acute (3) Tobacco dependency: Encourage abstinence Status: Acute Additional A&P Information Polycythemia. Correcting with hydration. This is likely secondary to his tobacco dependency. Full code Lovenox for DVT prophylaxis Attestations Medical Necessity Statement*: Needs continued hospitalization for close monitoring following mobilization physical therapy in this patient with tight carotid stenosis and recurrent neurologic symptoms when ambulating yesterday. Coding Level of Care Code Acute Electronic Engineering Draftsperson for Betsyg Fwd Diagnoses CVA (cerebral vascular accident) I63.9 Diabetes E11.9 Tobacco dependency F17.200
[2021-04-24 11:01] LABS: Glucose Point of Care 255 mg/dL (70-110)
--- NOTE | 2021-04-24 13:10 | P.TS_ITS ---
Transfer Summary Providers Date of Admission: 04/22/21 21:56 Date of Discharge: 04/24/21 Attending Provider at Admission: Ori Srinivasan MD Attending Provider at Transfer: Ellis Choe MD Anticipated Date of Transfer: Anticipated date of transfer: 04/24/21 Receiving Facility & Provider: Receiving Provider: [] Receiving facility: [] Diagnoses at Discharge Discharge Diagnosis (1) CVA (cerebral vascular accident): Status: Acute (2) Diabetes: Status: Acute (3) Tobacco dependency: Status: Acute Reason for Visit Reason for Visit: Poss Stroke, Unclear thinking, unable to text Hospital Course Hospital Course Tmo is a 60-year-old white male who presented on April 22 with history of word finding difficulties 2 days prior as well as some confusion. He was having trouble texting. His only past medical history was diabetes and tobacco dependency. In the emergency department CT of head was negative. CTA of head and neck demonstrated focal severe stenosis left proximal carotid. Following admission when up ambulating he had increased confusion, increased right facial drooping, and difficulty speaking. He was placed on Plavix, aspirin, and a statin. He was hydrated. MRI was obtained which demonstrated left frontal CVA, without hemorrhage. Neurology was consulted, as well as physical therapy speech therapy and Occupational Therapy. In discussion with neurology they believe that surgery should be done soon, ideally the week of April 30. Unfortunately, vascular surgery is not available at [facility] during that timeframe. The patient had [facility] so [facility] [place] [facility] I spoke with vascular surgery, Dr. Duque, regarding the patient. He reported he would have to go over this with the [facility] his vascular surgeon to arrange surgery early next week and would call tomorrow with how this would be arranged. Patient is agreeable to surgery, and transfer. I think likely this patient will not be able to be trans ferred until April 25 and this transfer summary will need updated with the accepting physician and any other changes. Today, April 24 patient worked well with therapy and did not have recurrence of symptoms. Physical Exam Narrative: EXAM NARRATIVE: See exam done earlier today. TS Data Data Completed and Pending: Completed Studies During Hospitalization Category Date Time Status CT angio headneck * [id number] Rout ine Cat Scan 04/23/21 00:[address] head wo con* [id number] Urgent Cat Scan 04/22/21 18:21 Completed XR chest 1V alanna ble [id number] Urgent Exams 04/22/21 18:21 Completed MR head wo con* 7 [id number] Routine MRI 04/23/21 08:44 Completed CV. echo complete * [id number] Routine Ultrasound 04/23/21 05:08 Completed Pending at discharge Category Date Time Status Basic Metabolic P nando AM LABS Lab 04/25/21 04:00 Ordered Complete Blood Co unt w/Auto AM LABS Lab 04/25/21 04:00 Ordered Erythropoietin Ro utine Lab 04/23/21 03:25 Received Labs from last 24 hours 04/24/21 04/24/21 04/24/21 10:50 06:28 04:49 WBC RBC Hgb Hct MCV MCH MCHC RDW Plt Count MPV Neut % (Auto) Lymph % (Auto) Faulkner % (Auto) Eos % (Auto) Baso % (Auto) Neut # (Auto) Lymph # (Auto) Faulkner # (Auto) Eos # (Auto) Baso # (Auto) Nucleated RBC % (a uto) Nucleated RBCs # Sodium 134 L Potassium 3.5 Chloride 103 Carbon Dioxide 23 Anion Gap 11.5 BUN 11 Creatinine 0.6 L GFR Calculation 137.9 H Glucose 170 H POC Glucose 255 H 376 H Calculated Osmolal ity 281 L Calcium 7.9 L Total Bilirubin 0.3 AST 14 ALT 20 Alkaline Phosphata se 111 Total Protein 6.0 L Albumin 3.1 L Globulin 2.9 04/24/21 04/23/21 04/23/21 04:49 21:28 21:24 WBC 11.8 H RBC 5.28 Hgb 15.0 Hct 44.8 MCV 84.8 MCH 28.4 MCHC 33.5 RDW 11.8 L Plt Count 216 MPV 11.6 H Neut % (Auto) 51.1 Lymph % (Auto) 37.2 Faulkner % (Auto) 8.0 Eos % (Auto) 2.4 Baso % (Auto) 0.5 Neut # (Auto) 6.05 Lymph # (Auto) 4.4 Faulkner # (Auto) 0.9 Eos # (Auto) 0.3 Baso # (Auto) 0.1 Nucleated RBC % (a uto) 0 Nucleated RBCs # 0.0 Sodium Potassium Chloride Carbon Dioxide Anion Gap BUN Creatinine GFR Calculation Glucose POC Glucose 134 H 267 H Calculated Osmolal ity Calcium Total Bilirubin AST ALT Alkaline Phosphata se Total Protein Albumin Globulin 04/23/21 04/23/21 16:49 14:06 WBC RBC Hgb Hct MCV MCH MCHC RDW Plt Count MPV Neut % (Auto) Lymph % (Auto) [place] % (Auto) Eos % (Auto) Baso % (Auto) Neut # (Auto) Lymph # (Auto) Fa[place]ner # (Auto) Eos # (Auto) Baso # (Auto) Nucleated RBC % (a uto) Nucleated RBCs # Sodium Potassium Chloride Carbon Dioxide Anion Gap BUN Creatinine GFR Calculation Glucose POC Glucose 288 H 459 H Calculated Osmolal ity Calcium Total Bilirubin AST ALT Alkaline Phosphata se Total Protein Albumin Globulin Vitals: Last Vital Signs Temp 98.0 F 04/24/21 11:50 Pulse 98 04/24/21 11:50 Resp 17 04/24/21 11:50 BP 145/79 04/24/21 11:50 Pulse Ox 92 04/24/21 11:50 TS Medications Medications Home Medications cholecalciferol (vitamin D3) [Vitamin D3] 50 mcg PO DAILY PRN 04/23/21 [History Confirmed 04/23/21] metformin 500 mg PO BID 04/23/21 [History Confirmed 04/23/21] Active Medications Acetaminophen (Acetaminophen 500 Mg Tablet) 500 mg PO Q4H PRN PRN Reason: fever Aspirin (Aspirin 81 Mg Ec Tablet) 81 mg PO DAILY [facility] Last Admin: 04/24/21 08:24 Dose: 81 mg Documented by: Atorvastatin Calcium (Atorvastatin 40 Mg Tablet) 80 mg PO BEDTIME [facility] Last Admin: 04/23/21 21:53 Dose: 80 mg Documented by: Clopidogrel Bisulfate (Clopidogrel 75 Mg Tablet) 75 mg PO DAILY [facility] Last Admin: 04/24/21 08:24 Dose: 75 mg Documented by: Dextrose (Dextrose 50% Syringe 50 Ml) 25 ml IVP ONCE PRN; Protocol PRN Reason: hypoglycemia protocol Dextrose (Dextrose 50% Syringe 50 Ml) 50 ml IVP PRN PRN; Protocol PRN Reason: hypoglycemia protocol Enoxaparin Sodium (Enoxaparin 40 Mg/0.4 Ml Syringe) 40 mg SUBCUT Q24H [facility] Last Admin: 04/24/21 00:29 Dose: 40 mg Documented by: Glucagon (Glucagon 1 Mg/Ml Inj 1 Ml) 1 mg IM ONCE PRN; Protocol PRN Reason: Adult Acute Hypoglycemia Prot. Sodium Chloride (Sodium Chloride 0.9%) 1,000 mls @ 75 mls/hr IV .[id number] KATHERINE Last Admin: 04/24/21 08:24 Dose: 75 mls/hr Documented by: Dextrose (D5w) 500 mls @ 100 mls/hr IV ONCE PRN; Protocol PRN Reason: Adult Acute Hypoglycemia Prot Insulin Glargine (Insulin Glargine 100 Units/1 Ml) 20 unit SUBCUT BEDTIME KATHERINE Insulin Human Lispro (Insulin Lispro 100 Unit/1 Ml) 0 unit SUBCUT WM&BEDTIME KATHERINE; Protocol Last Admin: 04/24/21 08:25 Dose: 12 unit Documented by: Discharge Plan Discharge Patient Disposition: Xfer Short-Term Hosp Condition: Stable Prescriptions: No Action metformin 1,000 mg Tablet 500 mg PO BID RF: 0 Vitamin D3 50 mcg (2,000 unit) Tablet 50 mcg PO DAILY PRN (Reason: unknown) RF: 0 Discharge Diet: Diabetic Discharge Activity: Resume usual activity and Increase activity as tolerated Transfer Attestations Time Spent in Transfer Care*: greater than 30 min Quality Metrics Clinical Quality Measures: During this hospital stay, did patient experience: Stroke Contraindication to Antithrombotic: Antithrombotic prescribed Contraindication to Anticoagulation: Medical contraindication Contraindication to Statin: Statin prescribed Coding Level of Care Code Acute Supervising Law Enforcement Analyst for [facility] Fwd Diagnoses CVA (cerebral vascular accident) I63.9 Diabetes E11.9 Tobacco dependency F17.200
[2021-04-24 14:28] LABS: Erythropoietin 7.6 mIU/mL (2.6-18.5)
[2021-04-24 17:31] LABS: Glucose Point of Care 214 mg/dL (70-110)
[2021-04-24] MEDS: insulin glargine 100 units/1 mL 20 UNIT SUBCUT (20:26)
[2021-04-24] MEDS: atorvastatin 40 mg Tablet 80 MG PO (20:27)
[2021-04-25] VITALS (9 sets, daily range): BP systolic 123–171; BP diastolic 75–90; PULSE 86–100; RESP 17–19; TEMP 36.4–37.1; O2SAT 92–97
[2021-04-25] MEDS: enoxaparin 40 mg/0.4 mL Syringe SUBCUT (00:54)
[2021-04-25 05:35] LABS: Basophils # 0.1 10^3/uL (0.0-0.1); Basophils % 0.6 %; Eosinophils # 0.3 10^3/uL (0.0-0.8); Eosinophils % 2.3 %; Hematocrit 49.2 % (42.0-52.0); Hemoglobin 15.5 g/dL (11.7-16.6); Mean Corpuscular HGB Conc 31.5 g/dL (30.0-36.0); Mean Corpuscular Hemoglobin 28.3 pg (28.0-34.0); Mean Corpuscular Volume 89.9 fl (80-94); Mean Platelet Volume 11.1 fL (7.4-10.4); Monocytes # 0.8 10^3/uL (0.2-0.9); Monocytes % 6.7 %; Neutrophils # 6.88 10^3/uL (1.8-7.7); Neutrophils % 56.8 %; Nucleated Red Blood Cells % 0 %; Platelet Count 220 10^3/cmm (130-400); Red Blood Count 5.47 10^6/uL (4.1-5.3); Red Cell Distribution Width 11.8 % (12.1-15.1); White Blood Count 12.1 10^3/uL (4.0-10.0)
[2021-04-25 05:57] LABS: Blood Urea Nitrogen 9 mg/dL (6-20); Calcium 8.2 mg/dL (8.5-10.5); Carbon Dioxide 18 mmol/L (22-29); Chloride 102 mmol/L (98-107); Glomerular Filtration Rate 170.2 mL/min (90-130); Glucose 194 mg/dL (65-115); Osmolality Calculated 274 mOsm/kg (285-295); Sodium 130 mmol/L (136-145)
[2021-04-25] MEDS: sodium chloride 0.9% 1,000 ML 75 ML IV (06:15)
[2021-04-25 06:35] LABS: Glucose Point of Care 211 mg/dL (70-110)
[2021-04-25] MEDS: clopidogrel 75 mg Tablet PO (08:32)
[2021-04-25] MEDS: aspirin 81 mg EC Tablet PO (08:32)
[2021-04-25] MEDS: insulin lispro 100 unit/1 mL SUBCUT ×2 (08:32→13:12)
[2021-04-25 12:02] LABS: Glucose Point of Care 289 mg/dL (70-110)
[2021-04-25 12:54] LABS: SARS Covid-2 Antigen Negative (Negative)
--- NOTE | 2021-04-25 12:54 | P.PN_ITS ---
Subjective Subjective: Interval history: Please refer to transfer summary from 04/24. Today he is denying any changes from yesterday. No new symptoms. No headache. Vitals/I&O/Wt Last Vital Signs Temp 98.5 F 04/25/21 11:43 Pulse 93 04/25/21 11:43 Resp 18 04/25/21 11:43 BP 136/78 04/25/21 11:43 Pulse Ox 95 04/25/21 11:43 04/24/21 04/25/21 04/25/21 22:59 06:59 14:59 Intake Total 1385 / 2898.75 1453.75 / 4352.50 360 / 360 Output Total 800 / 1200 1250 / 1250 Balance 1385 / 2498.75 653.75 / 3152.50 -890 / -890 Physical Exam Const: COMMON NORMALS: no acute distress and patient oriented x3 HENMT: COMMON NORMALS: oropharynx normal Neck/C-Spine: COMMON NORMALS: no JVD Resp: COMMON NORMALS: normal respiratory effort and clear to auscultation bilaterally AUSCULTATION: clear to auscultation bilaterally Cardio: COMMON NORMALS: no JVD, regular rhythm, S1 normal heart sound present, S2 normal heart sound present and No murmurs present (Cardio) RHYTHM: regular rhythm HEART SOUNDS: S1 normal heart sound present and S2 normal heart sound present GI: COMMON NORMALS: Normal to inspection, nondistended, normoactive bowel sounds present, Soft to palpation and non-tender PALPATION: Yes Soft to palpation Extremity: COMMON NORMALS: no joint enlargement and no pedal edema Neuro: COMMON NORMALS: patient oriented x3 and moves all extremities CRANIAL NERVES: Yes other (Right facial droop) COORDINATION/BALANCE: [id number] test normal SPEECH: Other neuro speech findings (Scant, but improved) MOTOR EXAM: Pronator motor function not present and Other motor observations present (Mild R weakness) COORDINATION: [id number] test normal OTHER: No difficulty tracking. Visual damico full to confrontation. Skin: COMMON NORMALS: no rashes or lesions noted GENERAL SKIN EXAM: no rashes or lesions noted Data : 04/25/21 05:00 04/25/21 05:00 A&P Assessment and plan (1) CVA (cerebral vascular accident): Arrangements for transfer to arrange for procedure on severe stenosis of proximal left carotid artery by CEA versus stent depending on vascular surgery valuation. Would require additional relation including possibly carotid duplex, as well as stress test. To avoid delays transfer is arranged to [facility]. Today I am this morning by [facility] that he is connected actually with [facility] system, and so we submitted paperwork to [facility], however, there are insufficient beds there, and so they are telling us that he can go to [facility] instead. Transfer arrangements are continued for [facility]. Dr Duque updated. Left frontal lobe CVA, with a very small hemorrhagic component noted on MRI. Not candidate for TPA as symptoms started greater than 24 hours ago CTA demonstrates tight stenosis left internal carotid, proximally Plavix, aspirin, statin Therapy consultations Echocardiogram demonstrated EF 60 to 65%, grade 1 diastolic dysfunction, no obvious thrombus. Technically difficult. Continue telemetry. Status: Acute (2) Diabetes: Increase Lantus to 22 Sliding scale insulin. Hemoglobin A1c 11.8. Nurses to work on education, including insulin injection. Status: Acute (3) Tobacco dependency: Encourage abstinence Status: Acute Additional A&P Information Polycythemia. Correcting with hydration. This is likely secondary to his tobacco dependency. Full code Lovenox for DVT prophylaxis Attestations Medical Necessity Statement*: Continued transfer arrangements for transfer to [facility] for preparations and performance of revascularization of severe stenosis of proximal left carotid artery. Coding Level of Care Code Acute Radioactive Waste Disposal Dispatcher for Katiana Mcclain Diagnoses CVA (cerebral vascular accident) I63.9 Diabetes E11.9 Tobacco dependency F17.200
--- NOTE | 2021-04-25 15:09 | PC.NURSE ---
Report called to BERTO Neves to [facility]. Family updated of transfer to [place].
== END 2021-04-25 17:51 | disposition short-term general hospital (02) ==
LOC: ER 22:11 → MEDSURG 23:03
PROVIDERS: Internal Medicine; Admitting Provider Internal Medicine; Emergency Provider Emergency Medicine; Visit Provider Internal Medicine
DX: I63.512 Cerebral infarction due to unspecified occlusion or stenosis of left middle cerebral artery (principal); R29.700 NIHSS score 0; R41.0 Disorientation, unspecified; I65.22 Occlusion and stenosis of left carotid artery; E11.9 Type 2 diabetes mellitus without complications; I10 Essential (primary) hypertension; D75.1 Secondary polycythemia; F17.200 Nicotine dependence, unspecified, uncomplicated; Z79.82 Long term (current) use of aspirin; Z79.4 Long term (current) use of insulin; Z79.84 Long term (current) use of oral hypoglycemic drugs
CPT/HCPCS: 36415; 36416; 70450; 70496; 70498; 70551; 71045; 80048; 80053; 80061; 81003; 82140; 82607; 82668; 82728; 82962; 83036; 83540; 83550; 83735; 83880; 84145; 84146; 84443; 84484; 85025; 85378; 85610; 86140; 87426; 92507; 92523; 92610; 93005; 93306; 96360; 96361; 96372; 97161; 97165; 99285; G0378; J1650; J1815 ×2; J7030; Q9967

== ENCOUNTER → 2021-07-19 13:59 | Outpatient (BNVA) | payer OTHER, SELFPAY | PROVIDERS: Visit Provider Nurse Practitioner Family | DX: Z20.822 Contact with and (suspected) exposure to COVID-19 (principal); R09.81 Nasal congestion; R05.9 Cough, unspecified; R51.9 Headache, unspecified; F17.210 Nicotine dependence, cigarettes, uncomplicated | CPT/HCPCS: 87635 ==

== ENCOUNTER 2022-02-01 03:14 | Emergency (ER) | payer OTHER, SELFPAY ==
[2022-02-01 03:19] VITALS: BP 182/109; PULSE 109; RESP 29; TEMP 36.8; O2SAT 95; BMI 28.1
--- NOTE | 2022-02-01 03:23 | ECG_ITS ---
[facility] Test Date: 2022-02-01 Pat Name: Tom Lyons Department: Room: Gender: Male Intake Counselor: : 1960 Requested By: Emeterio Wright Order Number: [id number] Torres MD: Virginie Moulton M.D. Measurements Intervals [place] Rate: 106 P: 57 AK: 160 QRS: 36 QRSD: 85 T: 79 QT: 327 QTc: 434 Interpretive Statements SINUS TACHYCARDIA POSSIBLE LEFT ATRIAL ENLARGEMENT [-0.1mV P-WAVE IN V1/V2] NONSPECIFIC T-WAVE ABNORMALITY Compared to ECG 04/22/2021 17:28:19 T-wave abnormality now present Myocardial infarct finding no longer present Electronically Signed On 02-01-2022 13:14:17 CDT by Virginie Moulton M.D. [id number]
--- NOTE | 2022-02-01 03:31 | XRR_ITS ---
PROCEDURE INFORMATION: Exam: XR Chest Exam date and time: 02/01/2022 3:39 AM Age: 61 years old Clinical indication: Chest pressure; Patient HX: C/O chest pain TECHNIQUE: Imaging protocol: Radiologic exam of the chest. Views: 1 view. COMPARISON: CR XR chest 1V portable [id number] 04/22/2021 6:29 PM FINDINGS: Lungs: Interstitial prominence and chronic granulomatous disease. Pleural spaces: No pleural effusion. Heart/Mediastinum: No cardiomegaly. Bones/joints: Degenerative change. When correlating with the previous study, no significant interval changes are present. XR/XR chest 1V portable [id number] IMPRESSION: Stable appearance of the chest, not significantly changed from 04/22/21.
[2022-02-01] MEDS: nitroglycerin 0.4 mg sublingual Tablet SUBLINGUAL (03:56)
[2022-02-01] MEDS: metoprolol tartrate 1 mg/1 mL SDV 5 mL 5 MG IVP (03:57)
[2022-02-01] MEDS: aspirin 325 mg Tablet PO (04:00)
[2022-02-01 04:01] LABS: Basophils # 0.1 10^3/uL (0.0-0.1); Basophils % 0.5 %; Eosinophils # 0.4 10^3/uL (0.0-0.8); Hematocrit 48.1 % (42.0-52.0); Hemoglobin 15.7 g/dL (11.7-16.6); Lymphocytes # 3.3 10^3/uL (0.8-4.8); Lymphocytes % 27.3 %; Mean Corpuscular HGB Conc 32.6 g/dL (30.0-36.0); Mean Corpuscular Hemoglobin 28.6 pg (28.0-34.0); Mean Corpuscular Volume 87.8 fl (80-94); Mean Platelet Volume 10.8 fL (7.4-10.4); Monocytes # 1.1 10^3/uL (0.2-0.9); Monocytes % 8.9 %; Neutrophils # 7.18 10^3/uL (1.8-7.7); Neutrophils % 59.8 %; Nucleated Red Blood Cells % 0 %; Platelet Count 231 10^3/cmm (130-400); Red Blood Count 5.48 10^6/uL (4.1-5.3); Red Cell Distribution Width 12.7 % (12.1-15.1)
[2022-02-01] MEDS: lidocaine 2% viscous 15 ML, aluminum-mag hydrox-simethicon 30 ML, sucralfate oral liq 1 GM PO (04:02)
--- NOTE | 2022-02-01 04:17 | W.ED.CHESTPA ---
HPI - Chest Pain General: Chief Complaint: Chest Pain Stated Complaint: chest pain Time Seen by Provider: 02/01/22 03:31 Limitations: no limitations History of Present Illness: 61-year-old male patient who is noncompliant. He says that he has a history of coronary disease and stroke. He is not sure whether or not he has a stent in his heart. He knows that he had a balloon procedure this past July in [place] he notes pain since around noon yesterday, which she says started out of the blue at rest. The pain is continued through this morning. He did not take anything at home. MD complaint: chest pain Pertinent past history: coronary artery disease Onset (ago): hour(s) Timing of current episode: episodic Pain location: substernal and epigastric Pain radiation: none Quality: tightness Exacerbating factors: nothing Associated symptoms: Deny abdominal pain, diaphoresis, dyspnea or palpitations Review of Systems Const: Denies: diaphoresis Eyes: Denies: change in vision Card: Denies: chest pain or palpitations Resp: Denies: dyspnea, productive cough, non-productive cough or wheezing GI: Denies: abdominal pain : Denies: flank pain Skin/Breast: Denies: rash Neuro: Denies: headache(s), weakness in extremities, dizziness or confusion PFS ED PFSH: Medical History Diabetes Hypertension Surgical History History of testicular surgery Family History Denies family history of Hyperlipidemia Psychiatric illness Lung disease Hypertension Social History Smoking and tobacco status: current every day smoker Alcohol intake: never Lives independently: Yes Housing: House Physical Exam Const: GENERAL APPEARANCE: cooperative; not ill appearing HENMT: COMMON NORMALS: normocephalic and atraumatic HEAD & SCALP: normocephalic and atraumatic Eye: COMMON NORMALS: EOMs intact bilaterally Neck/C-Spine: COMMON NORMALS: full ROM GENERAL: Yes trachea midline Chest: COMMONS NORMALS: normal inspection of the chest CHEST: Yes Symmetrical chest wall rise and Yes tenderness Resp: COMMON NORMALS: normal respiratory effort, No use of accessory muscles and clear to auscultation bilaterally AUSCULTATION: clear to auscultation bilaterally Cardio: COMMON NORMALS: regular rate and regular rhythm RATE: regular rate RHYTHM: regular rhythm GI: COMMON NORMALS: Normal to inspection, nondistended, normoactive bowel sounds present PALPATION: Yes Tenderness to palpation present (GI) (epigastric) Extremity: COMMON NORMALS: no pedal edema Neuro: KISHORE COMA SCALE: document GCS findings Kishore coma scale eye opening: Spontaneous [place] coma scale verbal response: Orientated [place] coma scale motor response: Obey commands [place] coma scale total score: 15 Course Vital Signs: Vital signs: Vital Signs Temperature 98.2 F 02/01/22 03:19 Pulse Rate 84 02/01/22 04:48 Respiratory Rate 18 02/01/22 04:48 Blood Pressure 127/74 02/01/22 04:48 Pulse Oximetry 94 02/01/22 04:48 Oxygen Delivery Me thod 02/01/22 04:48 MDM - Chest Pain Medical Decision Making 61-year-old gentleman with chest discomfort. He is noncompliant with medications. He was hypertensive on arrival. He was given nitroglycerin, GI cocktail, and metoprolol. His pain is resolved now. He wishes to go. He was counseled on staying for a second troponin, but wishes to go anyway. He has had pain for over 12 hours, so 1 would expect an abnormal troponin if this was related to coronary disease. His EKG shows sinus tachycardia with a rate of 100, normal axis, minimal elevation that appears nonischemic in V1 and V2 only. There is no reciprocal change. Blood pressure now 134/81. Saturations 95% on room air with respirations of 18-20. His rate is sinus at 90. He will be allowed to go home given his laboratory and EKG findings. He was encouraged to take his medication appropriately and follow-up with his doctors. Chest x-ray is negative. His blood sugar is 377 otherwise BMP is normal. CBC is not remarkable. Lab Data : 02/01/22 03:55 02/01/22 03:55 Radiology Impressions Chest X-Ray 02/01/22 03:31 IMPRESSION: Stable appearance of the chest, not significantly changed from 04/22/21. Laboratory Results WBC 12.0 10^3/uL (4.0-10.0) H 02/01/22 03:55 RBC 5.48 10^6/uL (4.1-5.3) H 02/01/22 03:55 Hgb 15.7 g/dL (11.7-16.6) 02/01/22 03:55 Hct 48.1 % (42.0-52.0) 02/01/22 03:55 MCV 87.8 fl (80-94) 02/01/22 03:55 MCH 28.6 pg (28.0-34.0) 02/01/22 03:55 MCHC 32.6 g/dL (30.0-36.0) 02/01/22 03:55 RDW 12.7 % (12.1-15.1) 02/01/22 03:55 Plt Count 231 10^3/cmm (130-400) 02/01/22 03:55 MPV 10.8 fL (7.4-10.4) H 02/01/22 03:55 Neut % (Auto) 59.8 % 02/01/22 03:55 Lymph % (Auto) 27.3 % 02/01/22 03:55 Pope % (Auto) 8.9 % 02/01/22 03:55 Eos % (Auto) 3.0 % 02/01/22 03:55 Baso % (Auto) 0.5 % 02/01/22 03:55 Neut # (Auto) 7.18 10^3/uL (1.8-7.7) 02/01/22 03:55 Lymph # (Auto) 3.3 10^3/uL (0.8-4.8) 02/01/22 03:55 Pope # (Auto) 1.1 10^3/uL (0.2-0.9) H 02/01/22 03:55 Eos # (Auto) 0.4 10^3/uL (0.0-0.8) 02/01/22 03:55 Baso # (Auto) 0.1 10^3/uL (0.0-0.1) 02/01/22 03:55 Nucleated RBC % (auto) 0 % 02/01/22 03:55 Nucleated RBCs # 0.0 /100WBC 02/01/22 03:55 Sodium 137 mmol/L (136-145) 02/01/22 03:55 Potassium 4.1 mmol/L (3.5-5.1) 02/01/22 03:55 Chloride 100 mmol/L (98-107) 02/01/22 03:55 Carbon Dioxide 26 mmol/L (22-29) 02/01/22 03:55 Anion Gap 15.1 (5-19) 02/01/22 03:55 BUN 9 mg/dL (8-23) 02/01/22 03:55 Creatinine 0.7 mg/dL (0.7-1.2) 02/01/22 03:55 GFR Calculation 115.0 mL/min (90-130) 02/01/22 03:55 Glucose 377 mg/dL (65-115) H 02/01/22 03:55 Calculated Osmolality 298 mOsm/kg (285-295) H 02/01/22 03:55 Calcium 8.8 mg/dL (8.5-10.5) 02/01/22 03:55 Total Bilirubin 0.3 mg/dL (0.15-1.2) 02/01/22 03:55 AST 11 U/L (0-40) 02/01/22 03:55 ALT 15 U/L (0-41) 02/01/22 03:55 Alkaline Phosphatase 129 U/L (40-130) 02/01/22 03:55 Troponin T Baseline 14 ng/L (0-15) 02/01/22 03:55 NT-Pro-B Natriuret Pep 49 pg/mL (0-125) 02/01/22 03:55 Total Protein 7.1 g/dL (6.6-8.7) 02/01/22 03:55 Albumin 3.8 g/dL (3.5-5.2) 02/01/22 03:55 Globulin 3.3 g/dL (1.3-4.6) 02/01/22 03:55 Ethyl Alcohol < 10 mg/dL (0-10) 02/01/22 03:55 Discharge Plan Discharge Patient Disposition: Home Clinical Impression: Chest pain Condition: Stable Prescriptions: No Action metformin 1,000 mg Tablet 500 mg PO BID Vitamin D3 50 mcg (2,000 unit) Tablet 50 mcg PO DAILY PRN (Reason: unknown) Discharge Orders: Discharge ED (Routine); Ordered 02/01/22 Ordered By: Emeterio Humphrey Patient Instructions: Chest Pain (ED) Activity Restrictions/Additional Instructions: Return for any return of chest discomfort, shortness of breath, fever, worsening cough, any other concerning symptoms. Follow-up with your doctor on Thursday. They may wish to perform more tests as an outpatient. Coding Level of Care Code ED Television Announcer for Chg Fwd Exam Comprehensive
[2022-02-01 04:29] LABS: Troponin(5th) Baseline 14 ng/L (0-15)
[2022-02-01 04:34] LABS: Alanine Aminotransferase 15 U/L (0-41); Albumin Level 3.8 g/dL (3.5-5.2); Alkaline Phosphatase 129 U/L (40-130); Anion Gap 15.1 (5-19); Aspartate Amino Transferase 11 U/L (0-40); Blood Urea Nitrogen 9 mg/dL (8-23); Calcium 8.8 mg/dL (8.5-10.5); Carbon Dioxide 26 mmol/L (22-29); Chloride 100 mmol/L (98-107); Globulin 3.3 g/dL (1.3-4.6); Glucose 377 mg/dL (65-115); NT Pro B Type Natriuretic Pept 49 pg/mL (0-125); Osmolality Calculated 298 mOsm/kg (285-295); Potassium 4.1 mmol/L (3.5-5.1); Sodium 137 mmol/L (136-145); Total Bilirubin 0.3 mg/dL (0.15-1.2); Total Protein 7.1 g/dL (6.6-8.7)
[2022-02-01 04:36] LABS: Alcohol Level < 10 mg/dL (0-10)
[2022-02-01 04:48] VITALS: BP 127/74; PULSE 84; RESP 18; O2SAT 94
== END 2022-02-01 05:25 | disposition home or self-care (01) ==
PROVIDERS: Emergency Provider Emergency Medicine
DX: R07.9 Chest pain, unspecified (principal); Z79.84 Long term (current) use of oral hypoglycemic drugs; E11.9 Type 2 diabetes mellitus without complications; I10 Essential (primary) hypertension; F17.210 Nicotine dependence, cigarettes, uncomplicated
CPT/HCPCS: 71045; 80053; 80307; 83880; 84484; 85025; 93005; 96374; 99285; J3490

== ENCOUNTER 2022-05-31 18:31 | Emergency (ER) | payer OTHER, SELFPAY ==
--- NOTE | 2022-05-31 18:39 | XRR_ITS ---
PROCEDURE INFORMATION: Exam: XR Chest Exam date and time: 05/31/2022 6:57 PM Age: 61 years old Clinical indication: Sternal or substernal pain; Patient HX: Cough, SOB, chest pain; Additional info: Cp TECHNIQUE: Imaging protocol: Radiologic exam of the chest. Views: 1 view. COMPARISON: CR (CHEST, ) 02/01/2022 3:39 AM FINDINGS: Lungs: Question mild COPD. No consolidation. Pleural spaces: Unremarkable. No pleural effusion. No pneumothorax. Heart/Mediastinum: Unremarkable. No cardiomegaly. Bones/joints: Unremarkable. XR/XR chest 1V portable [id number] IMPRESSION: No acute findings.
[2022-05-31 18:41] VITALS: BP 147/82; PULSE 124; RESP 20; TEMP 38.3; O2SAT 98
--- NOTE | 2022-05-31 18:50 | W.ED.CHESTPA ---
HPI - Chest Pain General: Chief Complaint: Chest Pain Stated Complaint: SOB, Chest Pain Time Seen by Provider: 05/31/22 18:47 Source: patient Mode of arrival: ambulatory History of Present Illness: 61-year-old male presents to the emergency room with complaints of cough and fever for the last 2 days. He has cough associated with pain is worsening today. He is not on anything that seems to relieve or exacerbate the pain other than the coughing. Cough is nonproductive. No vomiting or diarrhea patient is tachycardic with a low-grade fever on arrival here. MD complaint: chest discomfort Onset (ago): day(s) Timing of current episode: episodic Onset: during rest (Associated with cough) Pain location: substernal Pain radiation: none Severity: mild Quality: sharp Relieving factors: nothing Exacerbating factors: other (Coughing) Associated symptoms: Reports dyspnea and fever(s); Deny abdominal pain, diaphoresis, nausea, palpitations, sense of impending doom, syncope or vomiting Review of Systems Const: Reports: fever(s); Denies: diaphoresis ENMT: Denies: throat pain, ear or mastoid pain, nasal discharge or nasal congestion Card: Reports: chest pain; Denies: palpitations, edema, swelling of feet/ankles, syncope or orthopnea Resp: Reports: dyspnea and non-productive cough; Denies: productive cough GI: Denies: abdominal pain, nausea or vomiting : Denies: flank pain, dysuria, urinary frequency or urinary urgency Skin/Breast: Denies: rash or pruritus PFSH ED PFSH: Medical History Diabetes Hypertension Surgical History History of testicular surgery Family History Denies family history of Hyperlipidemia Psychiatric illness Lung disease Hypertension Social History Smoking and tobacco status: current every day smoker Alcohol intake: never Lives independently: Yes Housing: House Physical Exam Const: GENERAL APPEARANCE: cooperative and comfortable ORIENTATION/CONSCIOUSNESS: Yes awake, Yes oriented to person, Yes oriented to place and Yes oriented to time HENMT: COMMON NORMALS: normocephalic, atraumatic, hearing grossly normal bilaterally, external ears normal, EAC's normal, TM's normal bilaterally, Normal nasal mucous membranes and turbinates present, moist oral mucous membranes and oropharynx normal HEAD & SCALP: normocephalic and atraumatic NOSE: Normal nasal mucous membranes and turbinates present EXTERNAL EAR: Yes external ears normal EXTERNAL AUDITORY CANAL: EAC's normal TYMPANIC MEMBRANE: TM's normal bilaterally Eye: COMMON NORMALS: Equal, round and reactive pupils present, EOMs intact bilaterally, conjunctivae normal and no scleral icterus CONJUNCTIVA: Yes conjunctivae normal PUPIL: Yes Equal, round and reactive pupils present Neck/C-Spine: COMMON NORMALS: full ROM, no lymphadenopathy, supple and no JVD Resp: COMMON NORMALS: normal respiratory effort, No retractions, No use of accessory muscles and clear to auscultation bilaterally AUSCULTATION: clear to auscultation bilaterally Cardio: COMMON NORMALS: no JVD, regular rate, regular rhythm and No murmurs present (Cardio) RATE: regular rate RHYTHM: regular rhythm GI: COMMON NORMALS: Soft to palpation and No hepatosplenomegaly present AUSCULTATION: Yes normoactive bowel sounds PALPATION: Yes Soft to palpation, No Tenderness to palpation present (GI), No Guarding due to palpation present (GI) and Yes No hepatosplenomegaly present Extremity: COMMON NORMALS: normal to inspection, capillary refill normal, no clubbing, cyanosis or edema, no calf tenderness and no pedal edema Neuro: SENSORIUM/ORIENTATION: Yes oriented to person, Yes oriented to place and Yes oriented to time Skin: COMMON NORMALS: no rashes or lesions noted GENERAL SKIN EXAM: no rashes or lesions noted Course Vital Signs: Vital signs: Vital Signs Temperature 100.9 F H 05/31/22 18:41 Pulse Rate 122 H 05/31/22 19:12 Respiratory Rate 26 H 05/31/22 19:12 Blood Pressure 181/87 05/31/22 19:12 Pulse Oximetry 92 05/31/22 19:12 MDM - Chest Pain Medical Decision Making Patient test positive for influenza. He declines Tamiflu he is far enough into his course of symptoms not likely to be terribly helpful anyway. Supportive cares and follow-up as needed return if he worsens. Medical Records I reviewed the patient's medical records. Lab Data I reviewed the patient's lab results. 05/31/22 18:35 05/31/22 18:35 Radiology Impressions Chest X-Ray 05/31/22 18:39 IMPRESSION: No acute findings. Laboratory Results WBC 12.2 10^3/uL (4.0-10.0) H 05/31/22 18:35 RBC 5.51 10^6/uL (4.1-5.3) H 05/31/22 18:35 Hgb 15.9 g/dL (11.7-16.6) 05/31/22 18:35 Hct 47.8 % (42.0-52.0) 05/31/22 18:35 MCV 86.8 fl (80-94) 05/31/22 18:35 MCH 28.9 pg (28.0-34.0) 05/31/22 18:35 MCHC 33.3 g/dL (30.0-36.0) 05/31/22 18:35 RDW 12.5 % (12.1-15.1) 05/31/22 18:35 Plt Count 189 10^3/cmm (130-400) 05/31/22 18:35 MPV 11.5 fL (7.4-10.4) H 05/31/22 18:35 Neut % (Auto) 72.9 % 05/31/22 18:35 Lymph % (Auto) 14.5 % 05/31/22 18:35 [place] % (Auto) 9.7 % 05/31/22 18:35 Eos % (Auto) 2.0 % 05/31/22 18:35 Baso % (Auto) 0.4 % 05/31/22 18:35 Neut # (Auto) 8.91 10^3/uL (1.8-7.7) H 05/31/22 18:35 Lymph # (Auto) 1.8 10^3/uL (0.8-4.8) 05/31/22 18:35 [place] # (Auto) 1.2 10^3/uL (0.2-0.9) H 05/31/22 18:35 Eos # (Auto) 0.3 10^3/uL (0.0-0.8) 05/31/22 18:35 Baso # (Auto) 0.1 10^3/uL (0.0-0.1) 05/31/22 18:35 Nucleated RBC % (auto) 0 % 05/31/22 18:35 Nucleated RBCs # 0.0 /100WBC 05/31/22 18:35 PT 12.90 SECONDS (12.1-14.9) 05/31/22 18:35 INR 0.94 (0.8-1.2) 05/31/22 18:35 Sodium 134 mmol/L (136-145) L 05/31/22 18:35 Potassium 4.1 mmol/L (3.5-5.1) 05/31/22 18:35 Chloride 97 mmol/L (98-107) L 05/31/22 18:35 Carbon Dioxide 27 mmol/L (22-29) 05/31/22 18:35 Anion Gap 14.1 (5-19) 05/31/22 18:35 BUN 12 mg/dL (8-23) 05/31/22 18:35 Creatinine 0.7 mg/dL (0.7-1.2) 05/31/22 18:35 GFR Calculation 115.0 mL/min (90-130) 05/31/22 18:35 Glucose 327 mg/dL (65-115) H 05/31/22 18:35 Calculated Osmolality 290 mOsm/kg (285-295) 05/31/22 18:35 Calcium 9.5 mg/dL (8.5-10.5) 05/31/22 18:35 Total Bilirubin 0.3 mg/dL (0.15-1.2) 05/31/22 18:35 AST 26 U/L (0-40) 05/31/22 18:35 ALT 31 U/L (0-41) 05/31/22 18:35 Alkaline Phosphatase 147 U/L (40-130) H 05/31/22 18:35 Troponin T Baseline 11 ng/L (0-15) 05/31/22 18:35 Troponin T 120 Minute 10.36 ng/L (0-15) 05/31/22 20:36 Delta Troponin T -0.64 ABS# (0-10) L 05/31/22 20:36 Total Protein 7.2 g/dL (6.6-8.7) 05/31/22 18:35 Albumin 4.4 g/dL (3.5-5.2) 05/31/22 18:35 Globulin 2.8 g/dL (1.3-4.6) 05/31/22 18:35 Nasal Influ A H1 2009 PCR Cancelled 05/31/22 23:10 Coronavirus 229E (PCR) Not detected (NOT DETECT) 05/31/22 19:09 Influenza A (H1) PCR Cancelled 05/31/22 23:10 Influenza A (H3) PCR Cancelled 05/31/22 23:10 Influenza Type A (PCR) Cancelled 05/31/22 23:10 Influenza Type B (PCR) Cancelled 05/31/22 23:10 SARS-CoV-2 (PCR) Not detected (NOT DETECT) 05/31/22 19:09 Discharge Plan Discharge Patient Disposition: Home Clinical Impression: Influenza Condition: Stable Prescriptions: No Action metformin 1,000 mg Tablet 500 mg PO BID Vitamin D3 50 mcg (2,000 unit) Tablet 50 mcg PO DAILY PRN (Reason: unknown) Discharge Orders: Discharge ED (Routine); Ordered 05/31/22 Ordered By: Van Messer Discharge Diet: Usual diet Discharge Activity: Increase activity as tolerated Patient Instructions: Influenza (ED), Opioid Safety, Pain Management Activity Restrictions/Additional Instructions: You were seen with cough and fever for the last 2 days. The chest discomfort you had is likely due to influenza. Your cardiac enzymes and EKG did not show any acute changes. Since you have declined Tamiflu you can use Tylenol or ibuprofen for body aches or fever. Use [id number]-rmr-dlfugty cough cold remedies as needed if you have any worsening of symptoms return to the emergency room. Coding Level of Care Code ED Chief Green Officer for Katiana Mcclain
--- NOTE | 2022-05-31 18:52 | ECG_ITS ---
[facility] Test Date: 2022-05-31 Pat Name: Tom Lyons Department: Room: Gender: Male Salt Washer: : 1960 Requested By: Estrella Mckeon Order Number: [id number] Melissa MD: Cisco Bishop M.D. Measurements Intervals [place] Rate: 125 P: 65 [place]: 161 QRS: 43 QRSD: 75 T: 87 QT: 281 QTc: 406 Interpretive Statements SINUS TACHYCARDIA ANTEROSEPTAL MYOCARDIAL INFARCTION , OF INDETERMINATE AGE [40+ ms Q WAVE IN V1-V4] Compared to ECG 02/01/2022 03:25:10 Myocardial infarct finding now present T-wave abnormality no longer present Electronically Signed On 06-01-2022 20:16:28 PEST LOCATOR by Cisco Bishop M.D. [email or web address].[employer]/store/[id number]
[2022-05-31 19:03] LABS: Basophils # 0.1 10^3/uL (0.0-0.1); Basophils % 0.4 %; Eosinophils # 0.3 10^3/uL (0.0-0.8); Hematocrit 47.8 % (42.0-52.0); Hemoglobin 15.9 g/dL (11.7-16.6); Lymphocytes # 1.8 10^3/uL (0.8-4.8); Lymphocytes % 14.5 %; Mean Corpuscular HGB Conc 33.3 g/dL (30.0-36.0); Mean Corpuscular Hemoglobin 28.9 pg (28.0-34.0); Mean Corpuscular Volume 86.8 fl (80-94); Mean Platelet Volume 11.5 fL (7.4-10.4); Monocytes # 1.2 10^3/uL (0.2-0.9); Monocytes % 9.7 %; Neutrophils # 8.91 10^3/uL (1.8-7.7); Neutrophils % 72.9 %; Nucleated Red Blood Cells % 0 %; Platelet Count 189 10^3/cmm (130-400); Red Blood Count 5.51 10^6/uL (4.1-5.3); Red Cell Distribution Width 12.5 % (12.1-15.1); White Blood Count 12.2 10^3/uL (4.0-10.0)
[2022-05-31 19:12] VITALS: BP 181/87; PULSE 122; RESP 26; O2SAT 92
[2022-05-31 19:14] LABS: INR 0.94 (0.8-1.2)
[2022-05-31 19:22] LABS: Troponin(5th) Baseline 11 ng/L (0-15)
[2022-05-31 19:25] LABS: Alanine Aminotransferase 31 U/L (0-41); Albumin Level 4.4 g/dL (3.5-5.2); Alkaline Phosphatase 147 U/L (40-130); Anion Gap 14.1 (5-19); Aspartate Amino Transferase 26 U/L (0-40); Blood Urea Nitrogen 12 mg/dL (8-23); Calcium 9.5 mg/dL (8.5-10.5); Carbon Dioxide 27 mmol/L (22-29); Chloride 97 mmol/L (98-107); Globulin 2.8 g/dL (1.3-4.6); Glucose 327 mg/dL (65-115); Osmolality Calculated 290 mOsm/kg (285-295); Potassium 4.1 mmol/L (3.5-5.1); Sodium 134 mmol/L (136-145); Total Bilirubin 0.3 mg/dL (0.15-1.2); Total Protein 7.2 g/dL (6.6-8.7)
--- NOTE | 2022-05-31 20:39 | ECG_ITS ---
[facility] Test Date: 2022-05-31 Pat Name: Tom Lyons Department: Room: Gender: Male Cupola Melter Helper: : 1960 Requested By: Estrella Mckeon Order Number: [id number] Melissa MD: Cisco Bishop M.D. Measurements Intervals [place] Rate: 125 P: 67 [place]: 163 QRS: 40 QRSD: 80 T: 91 QT: 285 QTc: 411 Interpretive Statements SINUS TACHYCARDIA NONSPECIFIC T-WAVE ABNORMALITY ABNORMAL RHYTHM ECG Compared to ECG 05/31/2022 18:52:18 T-wave abnormality now present Myocardial infarct finding no longer present Electronically Signed On 06-01-2022 20:24:01 ANIMAL FEEDER by Cisco Bishop M.D. [email or web address] [email or web address].[employer]/store/[id number]
[2022-05-31 20:56] LABS: Troponin 5 2HR 10.36 ng/L (0-15)
[2022-05-31 21:27] LABS: Troponin 5 2HR Delta -0.64 ABS# (0-10)
[2022-05-31 23:05] LABS: Adenovirus Not Detected (NOT DETECT); Chlamydia Pneumoniae Not Detected (NOT DETECT); Coronavirus 229E,HKU1,NL63,OC4 Not Detected (NOT DETECT); Human Metapneumovirus Not Detected (NOT DETECT); Human Rhinovirus/Enterovirus Not Detected (NOT DETECT); Influenza A Detected (NOT DETECT); Influenza A H1 Not Detected (NOT DETECT); Influenza A H1-2009 Not Detected (NOT DETECT); Influenza A H3 Detected (NOT DETECT); Influenza B Not Detected (NOT DETECT); Mycoplasma Pneumoniae Not Detected (NOT DETECT); Parainfluenza Virus Type 1 Not Detected (NOT DETECT); Parainfluenza Virus Type 2 Not Detected (NOT DETECT); Parainfluenza Virus Type 3 Not Detected (NOT DETECT); Parainfluenza Virus Type 4 Not Detected (NOT DETECT); Respiratory Syncytial Virus A Not Detected (NOT DETECT); Respiratory Syncytial Virus B Not Detected (NOT DETECT); SARS-COV-2 Not Detected (NOT DETECT)
[2022-05-31 23:10] LABS: Results from Genmark
== END 2022-05-31 21:28 | disposition home or self-care (01) ==
PROVIDERS: Emergency Medicine; Emergency Provider Family Medicine
DX: J11.1 Influenza due to unidentified influenza virus with other respiratory manifestations (principal); Z20.822 Contact with and (suspected) exposure to COVID-19; E11.9 Type 2 diabetes mellitus without complications; I10 Essential (primary) hypertension; F17.210 Nicotine dependence, cigarettes, uncomplicated
CPT/HCPCS: 36415; 71045; 80053; 84484; 85025; 85610; 87631; 87635; 93005; 99285

== ENCOUNTER 2022-08-08 13:53 | Outpatient (CLI) | payer OTHER, SELFPAY ==
--- NOTE | 2022-08-08 14:10 | USCV_ITS ---
Tom Lyons Age: 61 Gender: M : 1960 Exam Date: 08/08/2022 14:27 Ordering Phys: Dustin Machado DO Technologist: [place] [facility] [place]ication: hx of left cea Risk Factors: Previous Vascular Surgery: Right Brachial BP: / Left Brachial BP: / Right Left Velocity (cm/s) Spectral Plaque Velocity (cm/s) Spectral Plaque Syst/Diast Broadening Syst/Diast Broadening 88.60/ 21.00 Prox CCA 127.90/ 26.50 83.10/ 20.20 Mid CCA 102.50/ 23.70 67.30/ 14.80 Distal CCA 123.20/ 29.60 63.10/ 18.70 Prox ICA 67.40 / 22.20 49.20/ 15.10 Mid ICA 77.80 / 22.90 52.50/ 15.30 Distal ICA 77.10 / 27.80 111.60 ECA 107.50 0.71 ICA/CCA 0.61 Antegrade Vertebral Occluded 54.00/ 20.90 cm/s / cm/s Subclavian 156.8 124.0 0 0 FINDINGS hx of left cea, no real stenosis identified, pt somewhat difficult to scan, the left vert appears occluded CONCLUSIONS Right ICA stenosis <50%. Mild atheromatous plaque right carotid bulb/ICA. Left ICA stenosis <50%. Prior left CEA. Normal antegrade Doppler flow noted in the right vertebral artery. Left vertebral artery occluded Serafin Mcdonald MD (Electronically Signed) Final Date: 08 August 2022 15:59 S
== END 2022-08-08 13:54 | disposition home or self-care (01) ==
LOC: RAD 13:55
PROVIDERS: Visit Provider Emergency Medicine Emergency Medical Services
DX: I65.23 Occlusion and stenosis of bilateral carotid arteries (principal)
CPT/HCPCS: 93880

== ENCOUNTER → 2022-10-02 15:41 | Outpatient (BNVA) | payer OTHER, SELFPAY | PROVIDERS: PCP Emergency Medicine Emergency Medical Services; Visit Provider Internal Medicine Cardiovascular Disease | DX: I25.10 Atherosclerotic heart disease of native coronary artery without angina pectoris (principal); R00.0 Tachycardia, unspecified; I11.9 Hypertensive heart disease without heart failure; I65.22 Occlusion and stenosis of left carotid artery; D75.1 Secondary polycythemia; E11.9 Type 2 diabetes mellitus without complications; F17.210 Nicotine dependence, cigarettes, uncomplicated; F10.11 Alcohol abuse, in remission; Z95.5 Presence of coronary angioplasty implant and graft; Z86.73 Personal history of transient ischemic attack (TIA), and cerebral infarction without residual deficits; Z91.148 Patient's other noncompliance with medication regimen for other reason; Z82.49 Family history of ischemic heart disease and other diseases of the circulatory system; Z79.899 Other long term (current) drug therapy; I10 Essential (primary) hypertension | CPT/HCPCS: 93005; 99204 ==

== ENCOUNTER 2023-01-02 05:46 | Emergency (ER) | payer OTHER, SELFPAY ==
[2023-01-02] VITALS (7 sets, daily range): BP systolic 116–154; BP diastolic 61–93; PULSE 97–110; RESP 15–24; O2SAT 91–100; BMI 28.1
[2023-01-02] MEDS: morphine 4 mg/mL SDV 1 mL 2 MG IVP (05:57)
[2023-01-02] MEDS: ondansetron 2 mg/ML SDV 2 mL 4 MG IVP (05:57)
[2023-01-02] MEDS: aspirin 81 mg Chew Tablet 324 MG PO (05:58)
--- NOTE | 2023-01-02 06:00 | ED_ITS ---
HPI - Chest Pain General: Chief Complaint: Chest Pain Stated Complaint: cp Time Seen by Provider: 01/02/23 06:00 Source: patient Mode of arrival: ambulatory History of Present Illness: 62-year-old male arrives unannounced in the custody of law enforcement with a complaint of chest pain. He was arrested just prior to arrival and was being transported to the emergency room when he began complaining of chest pain. He states he has a history of coronary artery disease previously had angiography with balloon stenting. He states he has had a couple of angiograms 1 in [facility] and [place] each. He is tachypneic on arrival but is not diaphoretic. States the pain is central and radiating into his arm. He is di abetic hypertensive smokes and he does have a history of CVA with carotid stenosis. MD complaint: chest pain Pertinent past history: coronary artery disease Onset (ago): minute(s) Timing of current episode: episodic Pain location: substernal Pain radiation: left arm Relieving factors: nothing Exacerbating factors: nothing Associated symptoms: Deny abdominal pain, dyspnea, fever(s), nausea or vomiting Treatment prior to arrival: none Review of Systems Const: Denies: fever(s), chills or malaise Card: Denies: chest pain, edema, dyspnea on exertion or orthopnea Resp: Denies: dyspnea, productive cough or non-productive cough GI: Denies: abdominal pain, nausea or vomiting : Denies: flank pain, dysuria, urinary frequency or urinary urgency PFS ED PFSH: Medical History Diabetes Hypertension Surgical History History of testicular surgery Family History Denies family history of Hyperlipidemia Psychiatric illness Lung disease Hypertension Social History Smoking and tobacco status: current every day smoker Alcohol intake: never Substance/Drug Use: never Lives independently: Yes Housing: House Physical Exam Const: ORIENTATION/CONSCIOUSNESS: Yes awake, Yes oriented to person, Yes oriented to place and Yes oriented to time HENMT: COMMON NORMALS: normocephalic, atraumatic and hearing grossly normal bilaterally HEAD & SCALP: normocephalic and atraumatic Resp: COMMON NORMALS: No retractions, No use of accessory muscles and clear to auscultation bilaterally EFFORT & INSPECTION: Yes tachypneic AUSCULTATION: clear to auscultation bilaterally Cardio: COMMON NORMALS: regular rhythm and No murmurs present (Cardio) RATE: tachycardic RHYTHM: regular rhythm GI: COMMON NORMALS: Soft to palpation and No hepatosplenomegaly present AUSCULTATION: Yes normoactive bowel sounds PALPATION: Yes Soft to palpation, No Tenderness to palpation present (GI), No Guarding due to palpation present (GI) and Yes No hepatosplenomegaly present Extremity: COMMON NORMALS: normal to inspection, capillary refill normal, no clubbing, cyanosis or edema, no calf tenderness and no pedal edema Neuro: SENSORIUM/ORIENTATION: Yes oriented to person, Yes oriented to place and Yes oriented to time Skin: COMMON NORMALS: no rashes or lesions noted GENERAL SKIN EXAM: no rashes or lesions noted Course Vital Signs: Vital signs: Vital Signs Pulse Rate 99 01/02/23 08:00 Respiratory Rate 16 01/02/23 08:00 Blood Pressure 118/71 01/02/23 08:00 Pulse Oximetry 93 01/02/23 08:00 Oxygen Delivery Me thod Room Air 01/02/23 08:00 MDM - Chest Pain Medical Decision Making Patient initially arrives with complaints of chest pain he is hyperventilating ABG confirms. He is given morphine to calm him down initially and decrease his pain so we can get an adequate EKG is very difficult time getting an EKG without significant motion artifact once we were able to it does not show any change from his previous EKGs. I discussed with Dr. Lopez he recommended serial cardiac enzymes. He does not feel the EKGs we shared with him showed ST elevation. Patient's chest discomfort resolved once his breathing became controlled. His serial cardiac enzymes were negative and none of the repeated EKG showed significant ST elevation or depression. Patient will be discharged home follow-up with his primary care. Medical Records I reviewed the patient's medical records. Lab Data I reviewed the patient's lab results. 01/02/23 05:55 01/02/23 05:55 Radiology Impressions Chest X-Ray 01/02/23 06:01 IMPRESSION: Probable background mild COPD changes. Superimposed bronchitis cannot be entirely excluded. Laboratory Results WBC 13.3 10^3/uL (4.0-10.0) H 01/02/23 05:55 RBC 6.01 10^6/uL (4.1-5.3) H 01/02/23 05:55 Hgb 16.9 g/dL (11.7-16.6) H 01/02/23 05:55 Hct 50.9 % (42.0-52.0) 01/02/23 05:55 MCV 84.7 fl (80-94) 01/02/23 05:55 MCH 28.1 pg (28.0-34.0) 01/02/23 05:55 MCHC 33.2 g/dL (30.0-36.0) 01/02/23 05:55 RDW 12.9 % (12.1-15.1) 01/02/23 05:55 Plt Count 232 10^3/cmm (130-400) 01/02/23 05:55 MPV 11.3 fL (7.4-10.4) H 01/02/23 05:55 Neut % (Auto) 58.7 % 01/02/23 05:55 Lymph % (Auto) 29.8 % 01/02/23 05:55 [place] % (Auto) 7.8 % 01/02/23 05:55 Eos % (Auto) 2.8 % 01/02/23 05:55 Baso % (Auto) 0.4 % 01/02/23 05:55 Neut # (Auto) 7.82 10^3/uL (1.8-7.7) H 01/02/23 05:55 Lymph # (Auto) 4.0 10^3/uL (0.8-4.8) 01/02/23 05:55 [place] # (Auto) 1.0 10^3/uL (0.2-0.9) H 01/02/23 05:55 Eos # (Auto) 0.4 10^3/uL (0.0-0.8) 01/02/23 05:55 Baso # (Auto) 0.1 10^3/uL (0.0-0.1) 01/02/23 05:55 Nucleated RBC % (auto) 0 % 01/02/23 05:55 Nucleated RBCs # 0.0 /100WBC 01/02/23 05:55 Specimen Type Arterial 01/02/23 05:53 Sample Site Radial, left 01/02/23 05:53 ABG pH 7.55 (7.35-7.45) H 01/02/23 05:53 ABG pCO2 24.9 mmHg (35-45) L 01/02/23 05:53 ABG pO2 86.3 mmHg (80.0-100.0) 01/02/23 05:53 ABG HCO3 22.0 mmol/L (22-26) 01/02/23 05:53 ABG O2 Saturation 98.8 01/02/23 05:53 ABG Base Excess 1.5 mmol/L (-2.0-2.0) 01/02/23 05:53 Dameon Test Pos 01/02/23 05:53 A-a O2 Gradient 3.9 mmHg (5-10) L 01/02/23 05:53 Hematocrit 50.7 % (42-52) 01/02/23 05:53 Hgb O2 Saturation 95.0 % (95-100) 01/02/23 05:53 Carboxyhemoglobin 3.6 %THgb (0.4-20.1) 01/02/23 05:53 Methemoglobin 0.3 % (0.4-1.5) L 01/02/23 05:53 Total Hemoglobin 16.6 g/dL (14-18) 01/02/23 05:53 Sodium 140.0 mmol/L (131-143) 01/02/23 05:53 Potassium 4.1 mmol/L (3.5-5.0) 01/02/23 05:53 Glucose 293.0 mg/dL (70-115) H 01/02/23 05:53 Ionized Calcium 1.1 mmol/L (1.1-1.4) 01/02/23 05:53 O2 Delivery Device Room air 01/02/23 05:53 FiO2 21.0 % 01/02/23 05:53 Cable Splicer Assistant ID [place] 01/02/23 05:53 Sodium 139 mmol/L (136-145) 01/02/23 05:55 Potassium 4.4 mmol/L (3.5-5.1) 01/02/23 05:55 Chloride 102 mmol/L (98-107) 01/02/23 05:55 Carbon Dioxide 24 mmol/L (22-29) 01/02/23 05:55 Anion Gap 17.4 (5-19) 01/02/23 05:55 BUN 13 mg/dL (8-23) 01/02/23 05:55 Creatinine 0.8 mg/dL (0.7-1.2) 01/02/23 05:55 GFR Calculation 98.3 mL/min (90-130) 01/02/23 05:55 Glucose 304 mg/dL (65-115) H 01/02/23 05:55 Calculated Osmolality 300 mOsm/kg (285-295) H 01/02/23 05:55 Calcium 9.0 mg/dL (8.5-10.5) 01/02/23 05:55 Total Bilirubin 0.4 mg/dL (0.15-1.2) 01/02/23 05:55 AST 27 U/L (0-40) 01/02/23 05:55 ALT 32 U/L (0-41) 01/02/23 05:55 Alkaline Phosphatase 122 U/L (40-130) 01/02/23 05:55 Troponin T Baseline 14 ng/L (0-15) 01/02/23 05:55 Troponin T 120 Minute 12.51 ng/L (0-15) 01/02/23 07:58 Delta Troponin T -1.49 ABS# (0-10) L 01/02/23 07:58 Total Protein 7.2 g/dL (6.6-8.7) 01/02/23 05:55 Albumin 4.3 g/dL (3.5-5.2) 01/02/23 05:55 Globulin 2.9 g/dL (1.3-4.6) 01/02/23 05:55 Urine Color Light yellow (Yellow) 01/02/23 06:21 Urine Appearance Clear (CLEAR) 01/02/23 06:21 Urine pH 6 (5-7) 01/02/23 06:21 Ur Specific Dexter 1.015 (1.005-1.030) 01/02/23 06:21 Urine Protein Neg (Negative) 01/02/23 06:21 Urine Glucose (UA) 4+ (Normal) H 01/02/23 06:21 Urine Ketones Negative (Negative) 01/02/23 06:21 Urine Blood Neg (Negative) 01/02/23 06:21 Urine Nitrate Negative (Negative) 01/02/23 06:21 Urine Bilirubin Neg (Negative) 01/02/23 06:21 Urine Urobilinogen Norm mg/dL (Negative) 01/02/23 06:21 Ur Leukocyte Esterase Negative (Negative) 01/02/23 06:21 Discharge Plan Discharge Patient Disposition: Home Clinical Impression: Atypical chest pain, Hyperventilation Condition: Stable Prescriptions: No Action metformin 1,000 mg Tablet 500 mg PO BID Vitamin D3 50 mcg (2,000 unit) Tablet 50 mcg PO DAILY PRN (Reason: unknown) Discharge Orders: Discharge ED (Routine); Ordered 01/02/23 Ordered By: Van Messer Referrals: Dustin Machado, [Primary Care Provider] - Discharge Diet: Usual diet Discharge Activity: Increase activity as tolerated Patient Instructions: Opioid Safety, Pain Management Activity Restrictions/Additional Instructions: You are seen today for chest pain. On arrival laboratory test showed that you are hyperventilating. Your EKG is unchanged from previous EKG your cardiac enzymes were normal. We reviewed your EKGs with the frozen food department manager on-call and they concurred. Since her chest pain has resolved since hyperventilation stopped we can discharge you home at this point continue current medications follow-up with your primary care doctor. Coding Level of Care Code ED Firearms Model Maker for Katiana Mcclain
--- NOTE | 2023-01-02 06:01 | ECG_ITS ---
[facility] Test Date: 2023-01-02 Pat Name: Tom Lyons Department: Room: Gender: Male Cash Application Clerk: : 1960 Requested By: Van Sullivan Order Number: [id number] Melissa MD: Virginie Moulton M.D. Measurements Intervals [place] Rate: 104 P: 68 [place]: 161 QRS: 61 QRSD: 76 T: 84 QT: 328 QTc: 433 Interpretive Statements SINUS TACHYCARDIA NONSPECIFIC T-WAVE ABNORMALITY Compared to ECG 10/02/2022 15:49:20 T-wave abnormality now present Myocardial infarct finding no longer present Electronically Signed On 01-02-2023 13:39:15 CDT by Virginie Moulton M.D. [email or web address].[facility].[employer]/store/NU/[id number] f
--- NOTE | 2023-01-02 06:01 | XRR_ITS ---
PROCEDURE INFORMATION: Exam: XR Chest Exam date and time: 01/02/2023 6:07 AM Age: 62 years old Clinical indication: Pain; Chest pressure; Prior surgery; Surgery date: 6+ months; Surgery type: Stents; Additional info: Dyspnea/cough TECHNIQUE: Imaging protocol: Radiologic exam of the chest. Views: 1 view. COMPARISON: CR XR chest 1V portable [id number] 05/31/2022 6:57 PM FINDINGS: Lungs: There are increased bronchovascular markings present, findings compatible with mild COPD changes. Superimposed mild bilateral bronchitis cannot be excluded. Pleural spaces: Unremarkable. No pleural effusion. No pneumothorax. Heart/Mediastinum: Unremarkable. No cardiomegaly. Bones/joints: Unremarkable. XR/XR chest 1V portable [id number] IMPRESSION: Probable background mild COPD changes. Superimposed bronchitis cannot be entirely excluded.
[2023-01-02 06:04] LABS: ABG PCO2 24.9 mmHg (35-45); ABG PH Result 7.55 (7.35-7.45); Alveolar-Arterial Oxygen Gradi 3.9 mmHg (5-10); Arterial Blood Gas Hematocrit 50.7 % (42-52); Base Excess ABG 1.5 mmol/L (-2.0-2.0); Blood Gas Allen Test Pos; Blood Gas Operator Identificat WALCI; Blood Gas Sample Site Radial, left; Blood Gas Sample Type Arterial; Carboxyhemoglobin 3.6 %THgb (0.4-20.1); Ionized Calcium Level - ABG 1.1 mmol/L (1.1-1.4); Methemoglobin 0.3 % (0.4-1.5); Oxygen Device ROOM AIR; Oxygen Saturation ABG 98.8; PO2 ABG 86.3 mmHg (80.0-100.0); Potassium Level - ABG 4.1 mmol/L (3.5-5.0); Total Hemoglobin 16.6 g/dL (14-18)
[2023-01-02 06:08] LABS: Basophils # 0.1 10^3/uL (0.0-0.1); Basophils % 0.4 %; Eosinophils # 0.4 10^3/uL (0.0-0.8); Eosinophils % 2.8 %; Hematocrit 50.9 % (42.0-52.0); Hemoglobin 16.9 g/dL (11.7-16.6); Lymphocytes % 29.8 %; Mean Corpuscular HGB Conc 33.2 g/dL (30.0-36.0); Mean Corpuscular Hemoglobin 28.1 pg (28.0-34.0); Mean Corpuscular Volume 84.7 fl (80-94); Mean Platelet Volume 11.3 fL (7.4-10.4); Monocytes % 7.8 %; Neutrophils # 7.82 10^3/uL (1.8-7.7); Neutrophils % 58.7 %; Nucleated Red Blood Cells % 0 %; Platelet Count 232 10^3/cmm (130-400); Red Blood Count 6.01 10^6/uL (4.1-5.3); Red Cell Distribution Width 12.9 % (12.1-15.1); White Blood Count 13.3 10^3/uL (4.0-10.0)
[2023-01-02 06:24] LABS: Troponin(5th) Baseline 14 ng/L (0-15)
[2023-01-02 06:25] LABS: Alanine Aminotransferase 32 U/L (0-41); Albumin Level 4.3 g/dL (3.5-5.2); Alkaline Phosphatase 122 U/L (40-130); Anion Gap 17.4 (5-19); Aspartate Amino Transferase 27 U/L (0-40); Blood Urea Nitrogen 13 mg/dL (8-23); Carbon Dioxide 24 mmol/L (22-29); Chloride 102 mmol/L (98-107); Creatinine Clr Calc Pharmacy 99.1872; Globulin 2.9 g/dL (1.3-4.6); Glomerular Filtration Rate 98.3 mL/min (90-130); Glucose 304 mg/dL (65-115); Osmolality Calculated 300 mOsm/kg (285-295); Potassium 4.4 mmol/L (3.5-5.1); Sodium 139 mmol/L (136-145); Total Bilirubin 0.4 mg/dL (0.15-1.2); Total Protein 7.2 g/dL (6.6-8.7)
[2023-01-02 06:25] LABS: Add Urine Microscopic? NO; Charge for UA Resulting for Rev
[2023-01-02 06:28] LABS: Bilirubin Urine Neg (Negative); Blood Urine Neg (Negative); Glucose Urine UA 4+ (Normal); Ketones Urine Negative (Negative); Leukocyte Esterase Urine Negative (Negative); Nitrate Urine Negative (Negative); Protein Urine Neg (Negative); Specific Gravity, Urine 1.015 (1.005-1.030); Urine Appearance Clear (CLEAR); Urine Color Light yellow (Yellow); Urobilinogen Urine Norm (Negative); pH Urine 6 (5-7)
--- NOTE | 2023-01-02 07:25 | ECG_ITS ---
[facility] Test Date: 2023-01-02 Pat Name: Tom Lyons Department: Room: Gender: Male Sider Mechanic: : 1960 Requested By: Van Sullivan Order Number: [id number] Melissa MD: Virginie Moulton M.D. Measurements Intervals [place] Rate: 97 P: 66 [place]: 159 QRS: 58 QRSD: 84 T: 90 QT: 344 QTc: 439 Interpretive Statements SINUS RHYTHM NONSPECIFIC T-WAVE ABNORMALITY Compared to ECG 01/02/2023 05:54:31 Sinus tachycardia no longer present T-wave abnormality still present Electronically Signed On 01-02-2023 13:41:02 CDT by Virginie Moulton M.D. [email or web address] Systemskindred hospital lim[facility].[employer]/store/[id number] f
--- NOTE | 2023-01-02 08:01 | ECG_ITS ---
[facility] Test Date: 2023-01-02 Pat Name: Tom Lyons Department: Room: Gender: Male Director Behavioral Health: : 1960 Requested By: Van Sullivan Order Number: [id number] Melissa MD: Virginie Moulton M.D. Measurements Intervals [place] Rate: 95 P: 63 [place]: 172 QRS: 48 QRSD: 86 T: 84 QT: 350 QTc: 442 Interpretive Statements SINUS RHYTHM NONSPECIFIC T-WAVE ABNORMALITY Compared to ECG 10/02/2022 15:49:20 T-wave abnormality now present Sinus tachycardia no longer present Myocardial infarct finding no longer present Electronically Signed On 01-02-2023 13:40:52 CDT by Virginie Moulton M.D. [email or web address].[facility].B[employer]/store/[id number]
--- NOTE | 2023-01-02 08:30 | PC.PHAR ---
[facility] FOR MED LIST 01/02/23 8:30AM
[2023-01-02 08:33] LABS: Troponin 5 2HR 12.51 ng/L (0-15); Troponin 5 2HR Delta -1.49 ABS# (0-10)
--- NOTE | 2023-01-02 12:01 | ECG_ITS ---
[facility] Test Date: 2023-01-02 Pat Name: Tom Lyons Department: Room: Gender: Male Post Doc Fellowship: : 1960 Requested By: Van Sullivan Order Number: [id number] Melissa MD: Virginie Moulton M.D. Measurements Intervals [place] Rate: 96 P: 61 [place]: 163 QRS: 50 QRSD: 81 T: 77 QT: 346 QTc: 437 Interpretive Statements SINUS RHYTHM NONSPECIFIC T-WAVE ABNORMALITY Compared to ECG 01/02/2023 06:26:54 No significant changes Electronically Signed On 01-02-2023 13:40:45 CDT by Virginie Moluton M.D. [email or web address] regional medical centerWochitmartin memorial hospitalFabulyzer/store/OM/[id number]
== END 2023-01-02 08:50 | disposition home or self-care (01) ==
PROVIDERS: Emergency Provider Family Medicine; PCP Emergency Medicine Emergency Medical Services
DX: R07.89 Other chest pain (principal); R06.4 Hyperventilation; Z79.84 Long term (current) use of oral hypoglycemic drugs; E11.9 Type 2 diabetes mellitus without complications; I10 Essential (primary) hypertension; F17.210 Nicotine dependence, cigarettes, uncomplicated
CPT/HCPCS: 36600; 71045; 80051; 80053; 81003; 82330; 82805; 84484; 85025; 93005; 96374; 96375; 99285; J2270; J2405

== ENCOUNTER 2024-06-16 03:32 | Emergency (ER) | payer OTHER, SELFPAY ==
[2024-06-16 03:47] VITALS: BP 152/98; PULSE 107; RESP 16; TEMP 37.2; O2SAT 91; BMI 25.8
--- NOTE | 2024-06-16 04:17 | W.ED.SKABFB ---
HPI - Skin/Abscess/Foreign Bdy General: Chief complaint: Skin/Abscess/Foreign Body Stated complaint: Lump on back of neck Time Seen by Provider: 06/16/24 03:50 History of Present Illness: Patient presents to the ER with a probable abscess on the right side of his posterior neck. There are areas raised red firm to the touch rates her pain a 10 out of 10. He notes that about a week ago but did not see a doctor and has been getting worse ever since. Related Data Home Medications Medication Instructions Recorded Confirmed cholecalciferol (vitamin D3) 50 50 mcg PO DAILY PRN unknown 04/23/21 07/19/21 mcg (2,000 unit) tablet (Vitamin D3) metformin 1,000 mg tablet 500 mg PO BID pt states not taken 04/23/21 07/19/21 for about 3 weeks Previous Rx's Medication Instructions Recorded hydrocodone 5 mg-acetaminophen 325 1 tab PO Q6H PRN pain #14 tabs 06/16/24 mg tablet sulfamethoxazole 800 1 tab PO BID #14 tabs 06/16/24 mg-trimethoprim 160 mg tablet (Bactrim DS) Allergies Allergy/AdvReac Type Severity Reaction Status Date / Time No Known Allergies Allergy Verified 06/16/24 03:50 Review of Systems General: Reports: 10 or more systems reviewed and unremarkable except in HPI and below PFSH ED PFSH: Medical History Hypertension Diabetes Surgical History History of testicular surgery Family History Denies family history of Hyperlipidemia Psychiatric illness Lung disease Hypertension Social History Smoking and tobacco/nicotine status: current every day tobacco/nicotine user Alcohol intake: never Substance/Drug Use: never Lives independently: Yes Housing: House Physical Exam Const: COMMON NORMALS: no acute distress, average body habitus, patient oriented x3, no limitations, healthy appearing, alert and well nourished HENMT: COMMON NORMALS: normocephalic, atraumatic, hearing grossly normal bilaterally, external ears normal, Normal external nose present and moist oral mucous membranes HEAD & SCALP: normocephalic and atraumatic NOSE: Normal external nose present EXTERNAL EAR: Yes external ears normal Neck/C-Spine: COMMON NORMALS: no JVD OTHER: Area on right posterior neck region raised red indurated very tender. Small head like lesion. No obvious area of fluctuance. Chest: COMMONS NORMALS: normal inspection of the chest and normal palpation of entire chest wall Resp: COMMON NORMALS: normal respiratory effort, No retractions, No use of accessory muscles and clear to auscultation bilaterally AUSCULTATION: clear to auscultation bilaterally Cardio: COMMON NORMALS: no JVD, regular rate, regular rhythm, S1 normal heart sound present, S2 normal heart sound present, No gallops present (Cardio), No clicks present (Cardio), No murmurs present (Cardio) and No rub (Cardio) RATE: regular rate RHYTHM: regular rhythm HEART SOUNDS: S1 normal heart sound present and S2 normal heart sound present GI: COMMON NORMALS: Normal to inspection, nondistended, normoactive bowel sounds present, Soft to palpation, non-tender, No hepatosplenomegaly present and no masses PALPATION: Yes Soft to palpation and Yes No hepatosplenomegaly present Neuro: COMMON NORMALS: patient oriented x3 SENSORIUM/ORIENTATION: Yes alert Procedures Abscess I/D Site: neck Side (if applicable): right Local Anesthetic: lidocaine 1% Amount of anesthesia used (mL): 2 Technique: incised with #11 blade Amount of fluid expressed (mL): 1 Irrigation: No Packing used?: none Course Vital Signs: Vital signs: Vital Signs Temperature 98.9 F 06/16/24 03:47 Pulse Rate 107 H 06/16/24 03:47 Respiratory Rate 16 06/16/24 03:47 Blood Pressure 152/98 06/16/24 03:47 Pulse Oximetry 91 06/16/24 03:47 Oxygen Delivery Me thod Room Air 06/16/24 03:47 MDM - Skin/Abscess/Foreign Bdy Medicial Decision Making Area was anesthetized with 1% lidocaine plain. A stab incision was made approximately 1 cc of thick pus was expressed area was probed loculations were broken up. Dressing was placed culture was obtained. Patient was given Bactrim and Askov here in ER. Patient be discharged home on Bactrim. Lab Data I reviewed the patient's lab results. No radiology studies performed this visit Discharge Plan Discharge Patient Disposition: Home Clinical Impression: Abscess of skin or subcutaneous tissue Condition: Stable Prescriptions: New hydrocodone-acetaminophen 5-325 mg tablet 1 tab PO Q6H PRN (Reason: pain) Qty: 14 0RF sulfamethoxazole-trimethoprim [Bactrim DS] 800-160 mg tablet 1 tab PO BID Qty: 14 0RF No Action metformin 1,000 mg Tablet 500 mg PO BID Vitamin D3 50 mcg (2,000 unit) Tablet 50 mcg PO DAILY PRN (Reason: unknown) Discharge Orders: Discharge ED (Routine); Ordered 06/16/24 Ordered By: Austen Telles Referrals: Dustin Machado DO [Primary Care Provider] - Patient Instructions: Opioid Safety, Pain Management, Abscess Incision and Drainage (DC) Activity Restrictions/Additional Instructions: Thank you for choosing [facility] for your healthcare needs today. Please realize that you were seen in the emergency department and that we are providing you with an emergency medical screening exam and this may not be a complete and all exclusive of all testing and/or medical workup we may need to determine your element or severity of your illness. It is very important that you follow-up as instructed with your primary care provider or specialist for the additional evaluation and to discuss your medical treatment plan. You may return to the emergency department should you have concerns or if your condition changes or worsens in any way. Coding Level of Care Code ED Button Facing Machine Operator for Katiana Mcclain
[2024-06-16] MEDS: HYDROcodone-acetaminophen 5-325 mg Tablet 1 TAB PO (04:29)
[2024-06-16] MEDS: sulfamethoxazole-trimeth DS 160-800 mg Tablet 1 TAB PO (04:29)
[2024-06-16 04:32] VITALS: BP 148/93; PULSE 117; O2SAT 95
== END 2024-06-16 04:34 | disposition home or self-care (01) ==
PROVIDERS: Emergency Provider Emergency Medicine; PCP Emergency Medicine Emergency Medical Services
DX: L02.11 Cutaneous abscess of neck (principal); Z79.84 Long term (current) use of oral hypoglycemic drugs; Z72.0 Tobacco use; E11.9 Type 2 diabetes mellitus without complications; I10 Essential (primary) hypertension
CPT/HCPCS: 10060; 99283

== ENCOUNTER 2024-06-27 16:15 | Inpatient (IN) | payer OTHER, SELFPAY ==
[2024-06-27 16:25] VITALS: BP 171/85; PULSE 115; RESP 17; TEMP 36.8; O2SAT 100; BMI 26.6
--- NOTE | 2024-06-27 20:22 | CTR_ITS ---
PROCEDURE INFORMATION: Exam: CT Right Lower Extremity, Foot Exam date and time: 06/27/2024 9:55 PM Age: 63 years old Clinical indication: Cellulitis; Foot; Right; Additional info: Cellulitis versus abscess versus osteo TECHNIQUE: Imaging protocol: CT of the right lower extremity with intravenous contrast was performed. Exam focused on the foot. Radiation optimization: All CT scans at this facility use at least one of these dose optimization techniques: automated exposure control; mA and/or kV adjustment per patient size (includes targeted exams where dose is matched to clinical indication); or iterative reconstruction. Contrast material: OMNIPAQUE 350; Contrast volume: 80 ml; Contrast route: INTRAVENOUS (IV); COMPARISON: No relevant prior studies available. RADIATION DOSE METRICS: Total DLP (mGy-cm): 161.53 FINDINGS: Bones/joints: Soft tissue wound appears to be present over the 5th metatarsal head with underlying osseous erosion and soft tissue thickening. Suggestion of mild osseous erosion of the tip of the 2nd distal phalanx (series 6, image 106) associated with vertical fracture and overlying wound. Mild plantar and posterior calcaneal spur. No acute fracture. No dislocation. Small chronic ossicle at the tip of the medial malleolus. Mild degenerative arthrosis of the ankle, subtalar facets and other tarsal joints. Small osseous erosion of the central talar head (series 6, image 43). Patient is status post amputation of the big toe through the base of the proximal phalanx. [id number] arthrosis of the 1st MTP joint and hallux sesamoids. Soft tissues: As detailed above. CT/CT foot RT w con [id number] IMPRESSION: 1. Soft tissue thickening and osseous erosion of the 5th metatarsal head suspicious for chronic or acute on chronic osteomyelitis. 2. Additional soft tissue thickening/wound and underlying erosion and mildly comminuted fracture of the 2nd distal phalanx , also suspicious for osteomyelitis and pathologic fracture.
--- NOTE | 2024-06-27 20:22 | CTR_ITS ---
PROCEDURE INFORMATION: Exam: CT Neck With Contrast Exam date and time: 06/27/2024 9:49 PM Age: 63 years old Clinical indication: Mass, lump, or swelling in neck; Posterior; Additional info: Soft tissue mass posterior neck, suspect abscess TECHNIQUE: Imaging protocol: Computed tomography of the neck with contrast. Radiation optimization: All CT scans at this facility use at least one of these dose optimization techniques: automated exposure control; mA and/or kV adjustment per patient size (includes targeted exams where dose is matched to clinical indication); or iterative reconstruction. Contrast material: OMNIPAQUE 350; Contrast volume: 80 ml; Contrast route: INTRAVENOUS (IV); COMPARISON: CT angio headneck* [id number] 04/23/2021 1:55 AM RADIATION DOSE METRICS: Total DLP (mGy-cm): 272.5 FINDINGS: Paranasal sinuses: Paranasal sinus opacification. Salivary glands: Normal. Glands are normal in size. Pharynx: Unremarkable. No significant tonsillar enlargement. Prevertebral and retropharyngeal spaces: Unremarkable. Larynx: Unremarkable. Epiglottis is normal. Thyroid: Normal. No enlarged or calcified nodules. Trachea: Visualized trachea is unremarkable. Lungs: Unremarkable as visualized. Lymph nodes: Unremarkable. No lymphadenopathy. Vasculature: Carotid artery atherosclerotic calcifications. Bones/joints: Degenerative disc space disease throughout the spine. Soft tissues: 37 x 12 x 37 mm fluid collection in the right upper posterior paramidline neck subcutaneous fat concerning for an abscess with associated surrounding edema and soft tissue thickening consistent with cellulitis. CT/CT neck w con* [id number] IMPRESSION: 1. 37 x 12 x 37 mm fluid collection in the right upper posterior paramidline neck subcutaneous fat concerning for an abscess with associated surrounding edema and soft tissue thickening consistent with cellulitis. 2. Paranasal sinus opacification. 3. Degenerative disc space disease throughout the spine. 4. Carotid artery atherosclerotic calcifications.
--- NOTE | 2024-06-27 20:24 | ED_ITS ---
HPI - Wound/Laceration 2 General: Chief Complaint: Wound/Laceration Stated [facility] and [facility] on [facility] Time Seen by Provider: 06/27/24 20:17 History of Present Illness: [facility] in his right foot. Right foot is red swollen decreased palpable pulses, does appear to be an infection, patient is already had wound care done on this foot and says then needed to put him in a hyperbaric oxygen chamber but some reason they did not. Patient says the right lateral metatarsal area has improved but he thinks he got infection in the bone and outs went all the way across to his right metatarsal region. Patient is already had his big toe amputated secondary to infection and poor wound healing chronic infection. Patient was seen approximately 2 weeks ago by myself for infection/abscess on his posterior neck region and this area was lanced. Patient was given Bactrim and sent home for the prescription that he never to get filled. This area does look better but is still swollen and painful.. Related Data Home Medications Medication Instructions Recorded Confirmed empagliflozin 25 mg tablet 25 mg PO DAILY 06/28/24 06/28/24 (Jardiance) glipizide 10 mg tablet 10 mg PO TID 06/28/24 06/28/24 metformin 500 mg tablet,extended 500 mg PO BID 06/28/24 06/28/24 release 24hr (osmotic) Allergies Allergy/AdvReac Type Severity Reaction Status Date / Time No Known Allergies Allergy Verified 06/16/24 03:50 Review of Systems 2 General: Reports: 10 or more systems reviewed and unremarkable except in HPI and below PFSH ED 2 PFSH: Medical History (Updated 06/28/24 @ 14:12 by BILL Ham) Elevated blood pressure reading in office with diagnosis of hypertension Atherosclerosis of coronary artery of [place] heart without angina pectoris Left carotid stenosis Left acute arterial ischemic stroke, MCA (middle cerebral artery) CVA (cerebral vascular accident) Polycythemia Acute confusion Hypertension Diabetes Surgical History History of testicular surgery Family History Denies family history of Hyperlipidemia Psychiatric illness Lung disease Hypertension Social History Smoking and tobacco/nicotine status: current every day tobacco/nicotine user Alcohol intake: never Substance/Drug Use: never Lives independently: Yes Housing: House Physical Exam 2 Const: COMMON NORMALS: no acute distress, average body habitus, patient oriented x3, no limitations, healthy appearing, alert and well nourished HENMT: COMMON NORMALS: normocephalic, atraumatic, hearing grossly normal bilaterally, external ears normal, Normal external nose present and moist oral mucous membranes HEAD & SCALP: normocephalic and atraumatic NOSE: Normal external nose present EXTERNAL EAR: Yes external ears normal Neck/C-Spine: COMMON NORMALS: no JVD OTHER: Raise posterior neck mass/abscess tender to palpate minimal erythema, no streaking, no obvious fluctuance Chest: COMMONS NORMALS: normal inspection of the chest and normal palpation of entire chest wall Resp: COMMON NORMALS: normal respiratory effort, No retractions, No use of accessory muscles and clear to auscultation bilaterally AUSCULTATION: clear to auscultation bilaterally Cardio: COMMON NORMALS: no JVD, regular rhythm, S1 normal heart sound present, S2 normal heart sound present, No gallops present (Cardio), No clicks present (Cardio) and No murmurs present (Cardio); negative for regular rate (Mildly tachycardic) RATE: abnormal rate (Mildly tachycardic) RHYTHM: regular rhythm HEART SOUNDS: S1 normal heart sound present and S2 normal heart sound present GI: COMMON NORMALS: Normal to inspection, nondistended, normoactive bowel sounds present, Soft to palpation, non-tender, No hepatosplenomegaly present and no masses PALPATION: Yes Soft to palpation and Yes No hepatosplenomegaly present Extremity: OTHER: Mild redness erythema and infection appearance noted to right lower extremity, especially second toe. Patient is already had the first toe amputated, decreased palpable pulses to lower extremity, Neuro: COMMON NORMALS: patient oriented x3 SENSORIUM/ORIENTATION: Yes alert Course 2 Vital Signs: Vital signs: Vital Signs Temperature 97.4 F L 06/28/24 14:50 Pulse Rate 94 06/28/24 14:50 Respiratory Rate 17 06/28/24 15:22 Blood Pressure 131/94 06/28/24 14:50 Pulse Oximetry 97 06/28/24 14:50 Oxygen Delivery Me thod Room Air 06/28/24 14:50 MDM - Wound/Laceration Medical Decision Making Dr Templeton and Dr Weller both consulted and notified, willl admit for iv abx Dr Chatterjee accepted for admission Medical Records I reviewed the patient's medical records. Lab Data I reviewed the patient's lab results. 06/28/24 08:30 06/28/24 08:[address] 06/27/24 20:22 IMPRESSION: 1. Soft tissue thickening and osseous erosion of the 5th metatarsal head suspicious for chronic or acute on chronic osteomyelitis. 2. Additional soft tissue thickening/wound and underlying erosion and mildly comminuted fracture of the 2nd distal phalanx , also suspicious for osteomyelitis and pathologic fracture. Neck CT 06/27/24 20:22 IMPRESSION: 1. 37 x 12 x 37 mm fluid collection in the right upper posterior paramidline neck subcutaneous fat concerning for an abscess with associated surrounding edema and soft tissue thickening consistent with cellulitis. 2. Paranasal sinus opacification. 3. Degenerative disc space disease throughout the spine. 4. Carotid artery atherosclerotic calcifications. Lower Extremity CTA 06/28/24 00:16 IMPRESSION: 1. Moderate-severe atherosclerotic changes with contrast fading out in the bilateral distal anterior tibial arteries. No flow appreciated in the bilateral dorsalis pedis arteries. 2. Soft tissue defect along the plantar lateral aspect of the right 5th metatarsal head with diffuse surrounding soft tissue thickening likely representing a cellulitis. 3. Bony deformity/erosive changes along the head of the right 5th metatarsal which is likely secondary to osteomyelitis of unknown chronicity. ADDENDUM: 06/28/24 0240 THIS REPORT CONTAINS FINDINGS THAT MAY BE CRITICAL TO PATIENT CARE. The findings were verbally communicated via telephone conference with ORI CHATTERJEE at 2:37 AM [facility] on 06/28/2024. The findings were acknowledged and understood. Foot X-Ray 06/28/24 06:32 IMPRESSION: 1. Destructive bone changes of the distal fifth metatarsal with soft tissue ulceration. Also osseous destruction of the distal end of the distal second phalanx with soft tissue edema. Acute osteomyelitis cannot be ruled out. Laboratory Results WBC 14.81 10^3/uL (3.29-11.43) H 06/27/24 20:42 RBC 5.22 10^6/uL (3.85-5.65) 06/27/24 20:42 Hgb 14.60 g/dL (11.27-16.99) 06/27/24 20:42 Hct 44.3 % (37-53) 06/27/24 20:42 MCV 84.9 fl (82-101) 06/27/24 20:42 MCH 28.0 pg (27-33) 06/27/24 20:42 MCHC 33.0 g/dL (30-55) 06/27/24 20:42 RDW 12.8 % (12.1-15.1) 06/27/24 20:42 Plt Count 369 10^3/cmm (157-399) 06/27/24 20:42 MPV 10.6 fL (7.4-10.4) H 06/27/24 20:42 Neut % (Auto) 61.3 % 06/27/24 20:42 Lymph % (Auto) 28.3 % 06/27/24 20:42 [place] % (Auto) 5.7 % 06/27/24 20:42 Eos % (Auto) 3.2 % 06/27/24 20:42 Baso % (Auto) 0.5 % 06/27/24 20:42 Neut # (Auto) 9.08 10^3/uL (1.8-7.7) H 06/27/24 20:42 Lymph # (Auto) 4.2 10^3/uL (0.8-4.8) 06/27/24 20:42 [place] # (Auto) 0.8 10^3/uL (0.2-0.9) 06/27/24 20:42 Eos # (Auto) 0.5 10^3/uL (0.0-0.8) 06/27/24 20:42 Baso # (Auto) 0.1 10^3/uL (0.0-0.1) 06/27/24 20:42 Nucleated RBC % (auto) 0 % 06/27/24 20:42 Nucleated RBCs # 0.0 /100WBC 06/27/24 20:42 ESR 96 mm/hr (0-10) H 06/27/24 20:42 Sodium 136 mmol/L (136-145) 06/27/24 20:42 Potassium 4.0 mmol/L (3.5-5.1) 06/27/24 20:42 Chloride 100 mmol/L (98-107) 06/27/24 20:42 Carbon Dioxide 25 mmol/L (22-29) 06/27/24 20:42 Anion Gap 15.0 (5-19) 06/27/24 20:42 BUN 10 mg/dL (8-23) 06/27/24 20:42 Creatinine 0.5 mg/dL (0.7-1.2) L 06/27/24 20:42 GFR Calculation 168.5 mL/min (90-130) H 06/27/24 20:42 Glucose 116 mg/dL (65-115) H 06/27/24 20:42 Calculated Osmolality 282 mOsm/kg (285-295) L 06/27/24 20:42 Lactic Acid 1.7 mmol/L (0.5-2.2) 06/27/24 20:42 Calcium 8.7 mg/dL (8.5-10.5) 06/27/24 20:42 Total Bilirubin 0.2 mg/dL (0.15-1.2) 06/27/24 20:42 AST 16 U/L (0-40) 06/27/24 20:42 ALT 16 U/L (0-41) 06/27/24 20:42 Alkaline Phosphatase 110 U/L (40-130) 06/27/24 20:42 C-Reactive Protein 22.1 mg/L (0.0-4.9) H 06/27/24 20:42 Total Protein 8.3 g/dL (6.6-8.7) 06/27/24 20:42 Albumin 3.5 g/dL (3.5-5.2) 06/27/24 20:42 Globulin 4.8 g/dL (1.3-4.6) H 06/27/24 20:42 Procalcitonin 0.07 ng/mL (0-0.5) 06/27/24 20:42 All radiology interpretation(s) finalized by discharge Discharge Plan Discharge Patient Disposition: Admitted As Inpatient Admit Provider: Ori Chatterjee Clinical Impression: Abscess of neck, Osteomyelitis of foot Condition: Stable Coding Level of Care Code ED Director Biology for Katiana Mcclain
[2024-06-27 20:50] VITALS: BP 148/85; PULSE 103; RESP 18; O2SAT 97
[2024-06-27 21:12] LABS: Basophils # 0.1 10^3/uL (0.0-0.1); Basophils % 0.5 %; Eosinophils # 0.5 10^3/uL (0.0-0.8); Eosinophils % 3.2 %; Hematocrit 44.3 % (37-53); Lymphocytes # 4.2 10^3/uL (0.8-4.8); Lymphocytes % 28.3 %; Mean Corpuscular Volume 84.9 fl (82-101); Mean Platelet Volume 10.6 fL (7.4-10.4); Monocytes # 0.8 10^3/uL (0.2-0.9); Monocytes % 5.7 %; Neutrophils # 9.08 10^3/uL (1.8-7.7); Neutrophils % 61.3 %; Nucleated Red Blood Cells % 0 %; Platelet Count 369 10^3/cmm (157-399); Red Blood Count 5.22 10^6/uL (3.85-5.65); Red Cell Distribution Width 12.8 % (12.1-15.1); White Blood Count 14.81 10^3/uL (3.29-11.43)
[2024-06-27 21:18] LABS: Erythrocyte Sedimentation Rate 96 mm/hr (0-10)
[2024-06-27 21:36] LABS: Alanine Aminotransferase 16 U/L (0-41); Albumin Level 3.5 g/dL (3.5-5.2); Alkaline Phosphatase 110 U/L (40-130); Aspartate Amino Transferase 16 U/L (0-40); Blood Urea Nitrogen 10 mg/dL (8-23); C Reactive Protein 22.1 mg/L (0.0-4.9); Calcium 8.7 mg/dL (8.5-10.5); Carbon Dioxide 25 mmol/L (22-29); Chloride 100 mmol/L (98-107); Creatinine Clr Calc Pharmacy 152.7595; Globulin 4.8 g/dL (1.3-4.6); Glomerular Filtration Rate 168.5 mL/min (90-130); Glucose 116 mg/dL (65-115); Osmolality Calculated 282 mOsm/kg (285-295); Sodium 136 mmol/L (136-145); Total Bilirubin 0.2 mg/dL (0.15-1.2); Total Protein 8.3 g/dL (6.6-8.7)
[2024-06-27 21:37] LABS: Lactic Sepsis W/Reflex 1.7 mmol/L (0.5-2.2)
[2024-06-27 21:50] LABS: Procalcitonin 0.07 ng/mL (0-0.5)
[2024-06-27] MEDS: iohexol 350 mg/mL 500 mL Btl (per mL) IV ×2 (21:55→21:56)
[2024-06-27 22:00] VITALS: BP 138/85; PULSE 114; O2SAT 95
--- NOTE | 2024-06-27 23:07 | P.HP_ITS ---
Providers/Chief Complaint 2 Primary Care Provider: Dustin Machado DO [facility] on [facility] History of Present Illness Tom Lyons is a 63 year old male with history of diabetes, takes metformin, living in a camper on the property of his sister, presented to the ER few days ago for neck pain, he was diagnosed with abscess, I&D was done in the ER, he was prescribed Bactrim, was not able to afford the medication came back with worsening of neck pain. In the ER he has been diagnosed with significant neck abscess 37 x 12 x 37 mm fluid collection, patient is not showing sign of meningitis, he is also showing signs of swelling and cellulitis of right foot, there is fifth metatarsal head osseous erosion consistent with osteomyelitis, second distal phalanx fracture, patient is not endorsing any pain at all in his foot, he is not endorsing rigors, chills, pain, shortness of breath. Stating that his blood sugar has been out of control, he has been taking metformin. Review of records revealed that patient has history of carotid endarterectomy in [place], right great toe amputation at [facility] 2023, history of coronary disease status post 2 stents, patient quit drinking more than 5 years ago, Previous EF 60 to 65% echo was done 2020 There is no documentation for peripheral arterial disease however clinically does have dry gangrene appearance of his right foot wound I have asked ER physician to consult general surgery and podiatry I have started started septic bolus, requested lactic acid, Review of Systems 2 Const: Denies: fever(s) Eyes: Denies: change in vision ENMT: Denies: throat pain Card: Denies: chest pain Resp: Denies: dyspnea GI: Denies: abdominal pain Musc: Reports: neck pain and back pain Skin/Breast: Reports: rash and erythema Medications/Allergies Home Medications Medication Instructions Recorded Confirmed Last Taken Type cholecalciferol (vitamin D3) 50 50 mcg PO DAILY PRN unknown 04/23/21 07/19/21 Unknown History mcg (2,000 unit) tablet (Vitamin D3) metformin 1,000 mg tablet 500 mg PO BID pt states not taken 04/23/21 07/19/21 Unknown History for about 3 weeks hydrocodone 5 mg-acetaminophen 325 1 tab PO Q6H PRN pain #14 tabs 06/16/24 Unknown Rx mg tablet sulfamethoxazole 800 1 tab PO BID #14 tabs 06/16/24 Unknown Rx mg-trimethoprim 160 mg tablet (Bactrim DS) Allergies Allergy/AdvReac Type Severity Reaction Status Date / Time No Known Allergies Allergy Verified 06/16/24 03:50 PFSH Acute 2 PFSH: Medical History Elevated blood pressure reading in office with diagnosis of hypertension Atherosclerosis of coronary artery of [place] heart without angina pectoris Left carotid stenosis Left acute arterial ischemic stroke, MCA (middle cerebral artery) CVA (cerebral vascular accident) Polycythemia Acute confusion Hypertension Diabetes Surgical History History of testicular surgery Family History Denies family history of Hyperlipidemia Psychiatric illness Lung disease Hypertension Social History Smoking and tobacco/nicotine status: current every day tobacco/nicotine user Alcohol intake: never Substance/Drug Use: never Lives independently: Yes Housing: House Vitals/I&O/Wt Last Vital Signs Temp 98.2 F 06/27/24 16:25 Pulse 103 H 06/27/24 20:50 Resp 18 06/27/24 20:50 BP 148/85 06/27/24 20:50 Pulse Ox 97 06/27/24 20:50 O2 Del Method Room Air 06/27/24 20:50 Weight last 48 hrs Weight 77.111 kg Physical Exam 2 Narrative: Capillary refill less than 3 seconds Tachycardia Dehydrated Abdomen soft Nonpurulent cellulitis of right foot Dry gangrene around the nails right fifth toe Weak dorsalis pedis pulses No active pain at rest Neck area with significant swelling erythema tenderness No signs of meningitis S1, S2 tachycardia Currently room air Pleasant Nonfocal neuroexam Data 06/27/24 20:42 06/27/24 20:42 Micro: Microbiology 06/27/24 20:46 Blood Culture - Preliminary Blood SPECIMEN COLLECTED 06/27/24 20:42 Blood Culture - Preliminary Blood SPECIMEN COLLECTED A&P Assessment and plan (1) Abscess of neck: (2) Osteomyelitis of foot: Qualifiers: Laterality: right Osteomyelitis type: unspecified type Qualified Code(s): M86.9 - Osteomyelitis, unspecified (3) Diabetes: (4) Tobacco dependency: Plan Abscess of neck No active fever Significant leukocytosis Start broad-spectrum antibiotics and clindamycin for toxin suppression No sign of meningitis No sign of CVA General surgery consulted for I&D Right foot osteomyelitis and fracture Podiatry consulted N.p.o. Right great toe amputation January last year as per the patient at [facility] Will request records Patient is not endorsing history of peripheral arterial disease however he does have dry gangrenous appearance of right fifth toe Will request arterial duplex study History of coronary disease and carotid endarterectomy: Hold off on antiplatelet therapy in anticipation of I&D and surgery Start antibiotics Sepsis: Criteria met with tachypnea tachycardia, leukocytosis, patient not endorsing fever, requested lactic acid, blood cultures taken, will give him septic bolus Poorly controlled diabetes: Patient not able to 4 medications: Check A1c level, we will keep him on sliding scale Accu-Cheks every 4 hours Full code N.p.o. DVT prophylaxis: SCDs Patient living in a camper Attestations 2 Medical Necessity Statement*: More than 2 midnights anticipated Diagnoses Abscess of neck L02.11 Osteomyelitis of foot M86.9 Laterality: right Osteomyelitis type: unspecified type Diabetes E11.9 Tobacco dependency F17.200
[2024-06-28] VITALS (21 sets, daily range): BP systolic 98–160; BP diastolic 59–95; PULSE 82–110; RESP 12–21; TEMP 35.6–36.8; O2SAT 92–99; BMI 27.2
--- NOTE | 2024-06-28 00:16 | CTR_ITS ---
PROCEDURE INFORMATION: Exam: CTA Abdominal Aorta and Bilateral Lower Extremities (Run-off) With Contrast Exam date and time: 06/28/2024 12:29 AM Age: 63 years old Clinical indication: Swelling, leg or foot and other: Dry gangrene TECHNIQUE: Imaging protocol: Computed tomographic angiography of the of the abdominal aorta, pelvis and bilateral lower extremities with contrast. Radiation optimization: All CT scans at this facility use at least one of these dose optimization techniques: automated exposure control; mA and/or kV adjustment per patient size (includes targeted exams where dose is matched to clinical indication); or iterative reconstruction. COMPARISON: CT foot RT w con [id number] 06/27/2024 9:55 PM FINDINGS: Aorta: Moderate atherosclerotic changes. No aortic aneurysm. No aortic dissection. Celiac trunk and mesenteric arteries: The left gastric artery arises directly from the aorta. Renal arteries: No occlusion or significant stenosis. Right iliac arteries: Moderate atherosclerotic changes. Severe stenosis at the ostium of the internal iliac artery and intermittent stenosis throughout the branches. Right femoral/popliteal arteries: Approximately 60% stenosis of the common femoral artery. Approximately 60% stenosis of the proximal superficial femoral artery with intermittent stenosis throughout. Critical stenosis in the mid superficial femoral artery. Right infrapopliteal arteries: Moderate atherosclerotic changes with poor contrast density in the anterior tibial artery. No definite flow is appreciated in the dorsalis pedis artery. The plantar artery is patent. Left iliac arteries: Moderate atherosclerotic changes. Severe stenosis at the ostium of the internal iliac artery and intermittent stenosis throughout the branches. Left femoral/popliteal arteries: Approximately 50% stenosis in the proximal superficial femoral artery with worsening intermittent stenosis throughout critical stenosis in the popliteal artery. Left infrapopliteal arteries: Moderate atherosclerotic changes with poor contrast density in the anterior tibial artery. No definite flow is appreciated in the dorsalis pedis artery. The plantar artery is patent. Lungs: Dependent atelectasis. Liver: Hepatomegaly. Gallbladder and biliary ducts: Unremarkable. Pancreas: Unremarkable. No mass. No ductal dilation. Spleen: Splenic granulomas. Adrenal glands: Fat density lesion in the right adrenal gland measuring 1.3 x 0.6 cm likely representing a myelolipoma. Kidneys and ureters: Left lower pole simple cortical renal cysts. Stomach and bowel: No mechanical obstruction. No mucosal thickening. Appendix: Unremarkable. Urinary bladder: Unremarkable. Reproductive: Mild prostatomegaly. Intraperitoneal space: No free air or free fluid. Lymph nodes: No lymphadenopathy. Bones/joints: Postoperative changes of right 1st proximal phalanx amputation. Bony deformity/erosive changes along the head of the right 5th metatarsal which likely secondary to osteomyelitis of unknown chronicity. Mild multilevel spondylosis. Soft tissues: Soft tissue defect along the plantar lateral aspect of the right 5th metatarsal head with diffuse surrounding soft tissue thickening likely representing a cellulitis. CT/[place] [id number] IMPRESSION: 1. Moderate-severe atherosclerotic changes with contrast fading out in the bilateral distal anterior tibial arteries. No flow appreciated in the bilateral dorsalis pedis arteries. 2. Soft tissue defect along the plantar lateral aspect of the right 5th metatarsal head with diffuse surrounding soft tissue thickening likely representing a cellulitis. 3. Bony deformity/erosive changes along the head of the right 5th metatarsal which is likely secondary to osteomyelitis of unknown chronicity.
--- NOTE | 2024-06-28 00:17 | USCV_ITS ---
Tom Lyons Age: 63 Gender: M : 1960 Exam Date: 06/28/2024 01:46 Ordering Phys: Ori Srinivasan MD Technologist: RUDY [place] [facility] [place]: dry gangrene RIGHT FOOT, s/p RT 1st toe amputation in remote past. DM2, long-term smoker continues smoking. Risk Factors: dry gangrene RIGHT FOOT, s/p RT 1st toe amputation in remote past. DM2, long-term smoker continues smoking. 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 Abnormal resting ABIs bilaterally suggesting moderate peripheral artery disease 2. Abnormal Doppler waveforms and velocities, suggesting popliteal/infrapopliteal disease Dr Cisco Bishop MD [facility] (Electronically Signed) Final Date: 10 July 2024 18:24 S
[2024-06-28] MEDS: iohexol 350 mg/mL 500 mL Btl (per mL) IV (00:47)
[2024-06-28 00:59] LABS: Lactic Sepsis W/Reflex 1.3 mmol/L (0.5-2.2)
[2024-06-28] MEDS: sodium chloride 0.9% 2,313.33 ML 2313.33 ML IV (01:02)
[2024-06-28] MEDS: clindamycin 900 MG/50 ML PREMIX 100 MG IV ×4 (01:05→23:39)
[2024-06-28] MEDS: vancomycin 1,500 MG/300 ML PIGGYBACK 200 MG IV ×2 (01:43→13:22)
[2024-06-28] MEDS: heparin 5,000 unit/mL INJ 1 mL IVP ×2 (03:20→19:44)
[2024-06-28] MEDS: heparin drip 25,000 UNIT/500 ML PREMIX 22 UNIT IV (03:20)
[2024-06-28] MEDS: HYDROcodone-acetaminophen 5-325 mg Tablet 1 TAB PO ×2 (03:22→17:09)
[2024-06-28] MEDS: sodium chloride 0.9% 1,000 ML 75 ML IV ×2 (03:27→17:00)
[2024-06-28] MEDS: piperacillin-tazobactam 3.375 GM in sodium chloride 0.9% (plus) 50 ML IV ×3 (03:28→19:27)
[2024-06-28 04:07] LABS: Glucose Point of Care 111 mg/dL (70-110)
--- NOTE | 2024-06-28 06:31 | P.CONIM_ITS ---
Providers/Reason For Consult 2 Consulting Physician/Specialty*: Karl Weller D.P.M. Reason for Consult*: Osteomyelitis right foot Attending Physician: Ori Srinivasan MD Primary Care Provider: Dustin Machado DO History of Present Illness History of Present Illness Tom Lyons is a 63 year old male presenting with worsening of abscess to the neck and chronic foot wounds. He was admitted through the emergency department on 06/27/24 for these issues. The patient has an uncontrolled diabetes mellitus condition and reports not taking medications. His living condition on his sister's property may impact his healthcare maintenance. His pertinent foot conditions include a chronic wound on the right lateral forefoot, persisting over the last year. He visited a wound care clinic weekly. The patient has a history of osteomyelitis to the right fifth metatarsal head, with no current symptoms reported such as redness or drainage. The patient also reports numbness in his feet, attributed to peripheral neuropathy, and he has only partial right great toe due to prior amputation in 2023. An acute wound has developed at the distal right second toe, identified to have acute osteomyelitis on imaging. He denies any systemic symptoms typically commensurate with infection. Peripheral arterial disease is evident, with diminished pedal pulses and previously documented atherosclerotic changes in the distal anterior tibial arteries. Imaging reveals reduced blood flow in dorsalis pedis arteries bilaterally. Review of Systems 2 General: Reports: 10 or more systems reviewed and unremarkable except in HPI and below Narrative: - General: Denies fevers, chills, shortn ess of breath, or chest pain. - Dermatologic: Denies redness or draina ge related to right foot wounds. - Neurological: Reports numbness in feet . Const: Denies: fever(s) or chills Eyes: Denies: change in vision Card: Denies: chest pain or palpitations Resp: Denies: dyspnea or productive cough GI: Denies: abdominal pain, nausea or vomiting : Denies: flank pain Musc: Reports: extremity swelling, joint stiffness and deformity Skin/Breast: Reports: erythema, sores, changes in skin color, dry skin, nail changes and change in hair Neuro: Reports: numbness in extremities, sensory changes and difficulty walking Psych: Denies: suicidal ideation Endo: Denies: change in body appearance Stewart/Lymph: Denies: tender lymph nodes Medications/Allergies Home Medications Medication Instructions Recorded Confirmed Last Taken Type No Known Home Medications 06/28/24 06/28/24 Unknown History Allergies Allergy/AdvReac Type Severity Reaction Status Date / Time No Known Allergies Allergy Verified 06/16/24 03:50 Current Medications Generic Name Dose Route Start Last Admin Trade Name Freq PRN Reason Stop Dose Admin Hydrocodone Bitart/Acetaminophen 1 tab 06/28/24 00:15 06/28/24 03:22 Hydrocodone-Acetaminophen 5-325 Mg Tablet PO 1 tab Q6H PRN Administration pain Clindamycin HCl/Dextrose 900 mg in 50 mls @ 100 mls/hr 06/28/24 00:15 06/28/24 02:41 Cleocin IV 06/30/24 09:00 Infused Q8H KATHERINE Infusion Protocol Sodium Chloride 1,000 mls @ 75 mls/hr 06/28/24 02:00 06/28/24 03:27 Sodium Chloride 0.9% IV 75 mls/hr .[id number] KATHERINE Administration Vancomycin HCl 1,500 mg in 300 mls @ 200 mls/hr 06/28/24 01:00 06/28/24 03:33 Vancocin IV Infused Q12H KATHERINE Infusion Piperacillin Sod/Tazobactam 50 mls @ 12.5 mls/hr 06/28/24 03:00 06/28/24 03:28 Sod 3.375 gm/ Sodium Chloride IV 12.5 mls/hr Q8H KATHERINE Administration Heparin Sodium/Sodium Chloride 25,000 unit in 500 mls @ 0 mls/hr 06/28/24 02:45 06/28/24 03:20 Heparin Drip IV 13.94 unit/kg/hr CONT KATHERINE 22 mls/hr Administration Protocol Per Protocol PFSH Acute 2 PFSH: Medical History Elevated blood pressure reading in office with diagnosis of hypertension Atherosclerosis of coronary artery of [place] heart without angina pectoris Left carotid stenosis Left acute arterial ischemic stroke, MCA (middle cerebral artery) CVA (cerebral vascular accident) Polycythemia Acute confusion Hypertension Diabetes Surgical History History of testicular surgery Family History Denies family history of Hyperlipidemia Psychiatric illness Lung disease Hypertension Social History Smoking and tobacco/nicotine status: current every day tobacco/nicotine user Alcohol intake: never Substance/Drug Use: never Lives independently: Yes Housing: House Vitals/I&O/Wt Last Vital Signs Temp 97.7 F 06/28/24 04:05 Pulse 96 06/28/24 04:05 Resp 16 06/28/24 04:05 BP 156/79 06/28/24 04:05 Pulse Ox 97 06/28/24 04:05 O2 Del Method Room Air 06/28/24 04:05 06/27/24 06/27/24 06/28/24 14:59 22:59 06:59 Intake Total 2663.33 / 2663.33 Output Total 1225 / 1225 Balance 1438.33 / 1438.33 Weight last 48 hrs Weight 165 lb 9.6 oz Weight 171 lb 6.4 oz Weight 174 lb Weight 170 lb Physical Exam 2 Narrative: Const: COMMON NORMALS: no acute distress, patient oriented x3 and alert HENMT: COMMON NORMALS: normocephalic HEAD & SCALP: normocephalic Eye: COMMON NORMALS: Equal, round and reactive pupils present PUPIL: Yes Equal, round and reactive pupils present Resp: COMMON NORMALS: normal respiratory effort, No retractions and No use of accessory muscles Cardio: COMMON NORMALS: regular rate RATE: regular rate PERIPHERAL PULSES: popliteal pulses present, posterior tibial pulses present and dorsalis pedis pulses not present Extremity: COMMON NORMALS: no calf tenderness; negative for no pedal edema GENERAL: Yes deformity Neuro: COMMON NORMALS: patient oriented x3 SENSORIUM/ORIENTATION: Yes alert SENSORY EXAM: Yes extremities MONOFILAMENT EXAM PERFORMED: Yes MOTOR EXAM: 5/5 motor strength present throughout Psych: COMMON NORMALS: cooperative Skin: NARRATIVE SKIN EXAM: Hyperkeratotic sinus tract lateral aspect of right fifth metatarsal head with indurated pigmented skin there is no drainage and no surrounding erythema or warmth to this area. Erythema to the distal tuft of the right second toe with full-thickness wound probes to the distal phalanx mild purulent drainage and fibrotic base, right second toe wound predebridement measures 4 mm x 4 mm x 3 mm. WOUNDS: Yes wounds noted NAILS: discolored, dystrophic and yellow and thickened Data 06/27/24 20:42 06/27/24 20:42 Micro: Microbiology 06/27/24 20:46 Blood Culture - Preliminary Blood SPECIMEN COLLECTED 06/27/24 20:42 Blood Culture - Preliminary Blood SPECIMEN COLLECTED A&P Assessment and plan (1) Diabetic peripheral neuropathy associated with type 2 diabetes mellitus: (2) Peripheral arterial disease: (3) Chronic osteomyelitis of metatarsal bone of right foot: (4) Acute osteomyelitis of toe of right foot: PROCEDURE: Full thickness wound debridement Location: Distal tuft of right second toe Local Anesthesia: none due to neuropathy Consent: Verbal Sterile Prep: with alcohol Details: Full thickness sharp debridement with dermal curette, pickups and scissors of the wound was performed using sterile dermal curette. The wound was debrided of hyperkeratotic rim and devitalized and fibrotic tissue down to bone, being the deepest level of debridement. Predebridement measurements: 4 mm x 4 mm x 3 mm Postdebridement measurements: 4 mm x 5 mm x 4 mm Hemostasis: Pressure Irrigation: sterile saline Dressing: Betadine wet-to-dry Estimated Blood Loss: minimal Offloading: Nonweightbearing Plan Assessment and Plan A 64-year-old male with a history of uncontrolled diabetes mellitus presenting with worsening neck abscess and active foot wounds, specifically affecting the lower extremities. This includes chronic osteomyelitis of the right fifth metatarsal head and acute osteomyelitis of the distal right second toe. The patient's diminished pedal pulses and impaired blood flow secondary to peripheral arterial disease considerably complicate wound healing. The patient's unmanaged diabetes is critical in complicating infection control and wound healing mechanisms. - Labs: White blood cell count 14.8, ESR 96, CMP 22.1. - Imaging: CT scan demonstrates changes in the right fifth metatarsal head and a pathologic fracture with osteomyelitic changes in the distal phalanx of the right second toe. CT angiogram of the lower extremities shows moderate to severe atherosclerotic changes with no flow in the bilateral dorsalis pedis arteries. Chronic osteomyelitis right fifth metatarsal is stable and less likely to be contributing to leukocytosis Acute osteomyelitis distal phalanx right second toe, debrided as above with plans for surgical incision and debridement today at 2:00, bone culture will be taken. Cardiology consulted for underlying PAD, foot wounds would benefit from revascularization if indicated Betadine wet-to-dry dressing right foot Remain n.p.o. Coding Level of Care Code Acute Code for Chg Fwd Diagnoses Diabetic peripheral neuropathy associated with type 2 diabetes mellitus E11.42 Peripheral arterial disease I73.9 Chronic osteomyelitis of metatarsal bone of right foot M86.671 Acute osteomyelitis of toe of right foot M86.171 Comment CPT 61249
--- NOTE | 2024-06-28 06:32 | XR_ITS ---
WS: [id number] Exam: XR foot RT min 3V* [id number] Date/Time of Exam: 06/28/2024 6:32 AM Reason For Exam: wound Compared to CT scan RIGHT foot performed 06/27/2024. Destructive bone changes seen involving the distal fifth metatarsal and the second distal phalanx as previously described. Acute osteomyelitis not ruled out. The first distal phalanx has been partially amputated. There are no acute fractures. Skin ulceration along the lateral aspect of the distal fifth metatarsal. Soft tissue swelling of the second toe. No other sign of bone destruction. No soft tissu e foreign bodies. XR/XR foot RT min 3V* [id number] IMPRESSION: 1. Destructive bone changes of the distal fifth metatarsal with soft tissue ulc eration. Also osseous destruction of the distal end of the distal second phalan x with soft tissue edema. Acute osteomyelitis cannot be ruled out.
--- NOTE | 2024-06-28 07:34 | PM.CONSULT ---
Providers/Reason For Consult Consulting Physician/Specialty*: General Surgery. Reason for Consult*: Posterior neck abscess Attending Physician: Kyle Hawthorne MD Primary Care Provider: Dustin Machado DO History of Present Illness History of Present Illness Tom Lyons is a 63 year old male with an abscess in the posterior neck. Patient presented to the hospital almost a week ago, the abscess was I&D and patient was prescribed antibiotics. Unfortunately patient was unable to take the prescription now presented again with worsening symptoms. I was consulted for possible I&D. Review of Systems General: Reports: 10 or more systems reviewed and unremarkable except in HPI and below Medications/Allergies Home Medications Medication Instructions Recorded Confirmed Last Taken Type cholecalciferol (vitamin D3) 50 50 mcg PO DAILY PRN unknown 04/23/21 07/19/21 Unknown History mcg (2,000 unit) tablet (Vitamin D3) metformin 1,000 mg tablet 500 mg PO BID pt states not taken 04/23/21 07/19/21 Unknown History for about 3 weeks hydrocodone 5 mg-acetaminophen 325 1 tab PO Q6H PRN pain #14 tabs 06/16/24 Unknown Rx mg tablet sulfamethoxazole 800 1 tab PO BID #14 tabs 06/16/24 Unknown Rx mg-trimethoprim 160 mg tablet (Bactrim DS) Allergies Allergy/AdvReac Type Severity Reaction Status Date / Time No Known Allergies Allergy Verified 06/16/24 03:50 Current Medications Generic Name Dose Route Start Last Admin Trade Name Freq PRN Reason Stop Dose Admin Hydrocodone Bitart/Acetaminophen 1 tab 06/28/24 00:15 06/28/24 03:22 Hydrocodone-Acetaminophen 5-325 Mg Tablet PO 1 tab Q6H PRN Administration pain Clindamycin HCl/Dextrose 900 mg in 50 mls @ 100 mls/hr 06/28/24 00:15 06/28/24 02:41 Cleocin IV 06/30/24 09:00 Infused Q8H KATHERINE Infusion Protocol Sodium Chloride 1,000 mls @ 75 mls/hr 06/28/24 02:00 06/28/24 03:27 Sodium Chloride 0.9% IV 75 mls/hr .[id number] KATHERINE Administration Vancomycin HCl 1,500 mg in 300 mls @ 200 mls/hr 06/28/24 01:00 06/28/24 03:33 Vancocin IV Infused Q12H KATHERINE Infusion Piperacillin Sod/Tazobactam 50 mls @ 12.5 mls/hr 06/28/24 03:00 06/28/24 03:28 Sod 3.375 gm/ Sodium Chloride IV 12.5 mls/hr Q8H KATHERINE Administration Heparin Sodium/Sodium Chloride 25,000 unit in 500 mls @ 0 mls/hr 06/28/24 02:45 06/28/24 03:20 Heparin Drip IV 13.94 unit/kg/hr CONT KATHERINE 22 mls/hr Administration Protocol Per Protocol PFSH Acute PFSH: Medical History Elevated blood pressure reading in office with diagnosis of hypertension Atherosclerosis of coronary artery of [place] heart without angina pectoris Left carotid stenosis Left acute arterial ischemic stroke, MCA (middle cerebral artery) CVA (cerebral vascular accident) Polycythemia Acute confusion Hypertension Diabetes Surgical History History of testicular surgery Family History Denies family history of Hyperlipidemia Psychiatric illness Lung disease Hypertension Social History Smoking and tobacco/nicotine status: current every day tobacco/nicotine user Alcohol intake: never Substance/Drug Use: never Lives independently: Yes Housing: House Vitals/I&O/Wt Last Vital Signs Temp 97.7 F 06/28/24 04:05 Pulse 96 06/28/24 04:05 Resp 16 06/28/24 04:05 BP 156/79 06/28/24 04:05 Pulse Ox 97 06/28/24 04:05 O2 Del Method Room Air 06/28/24 04:05 06/27/24 06/28/24 06/28/24 22:59 06:59 14:59 Intake Total 2663.33 / 2663.33 Output Total 1225 / 1225 Balance 1438.33 / 1438.33 Weight last 48 hrs Weight 165 lb 9.6 oz Weight 171 lb 6.4 oz Weight 174 lb Weight 170 lb Physical Exam Neck/C-Spine: OTHER: In the posterior neck there is an area of redness and fluctuance consistent with abscess seen on imaging. Data 06/27/24 20:42 06/27/24 20:42 Micro: Microbiology 06/27/24 20:46 Blood Culture - Preliminary Blood SPECIMEN COLLECTED 06/27/24 20:42 Blood Culture - Preliminary Blood SPECIMEN COLLECTED A&P Assessment and plan (1) Diabetes: (2) Abscess of neck: (3) Osteomyelitis of foot: Qualifiers: Laterality: right Osteomyelitis type: unspecified type Qualified Code(s): M86.9 - Osteomyelitis, unspecified Plan After complete history physical examination and review of all available clinical data the following is my assessment. Patient will benefit from I&D of posterior neck abscess. I have discussed all recommended to the procedure including the risk of bleeding, infection, reaccumulation, need for additional debridement, recurrence. Patient shows understanding wish to proceed. We will take him to the OR this afternoon for I&D. In addition he has been followed by podiatry team for osteomyelitis of the foot, they will plan to scrubbing after we finished I&D for a debridement. Coding Level of Care Code Acute Code for [facility] Diagnoses Diabetes E11.9 Abscess of neck L02.11 Osteomyelitis of foot M86.9 Laterality: right Osteomyelitis type: unspecified type
--- NOTE | 2024-06-28 07:45 | PHA.VACGOAL ---
Vancomycin Goal - Goal Vancomycin Goal:: 15-20 mg/L Vancomycin Indication:: Osteo - Therapy Current therapy:: Clindamycin, Pip/Tazo Day of therpy:: Day 1 of [] Actual body weight (kg): 165 lb 9.6 oz - Data Labs: WBC 14.81 10^3/uL (3.29-11.43) H 06/27/24 20:42 RBC 5.22 10^6/uL (3.85-5.65) 06/27/24 20:42 Hgb 14.60 g/dL (11.27-16.99) 06/27/24 20:42 Hct 44.3 % (37-53) 06/27/24 20:42 MCV 84.9 fl (82-101) 06/27/24 20:42 MCH 28.0 pg (27-33) 06/27/24 20:42 MCHC 33.0 g/dL (30-55) 06/27/24 20:42 RDW 12.8 % (12.1-15.1) 06/27/24 20:42 Sodium 136 mmol/L (136-145) 06/27/24 20:42 Potassium 4.0 mmol/L (3.5-5.1) 06/27/24 20:42 Chloride 100 mmol/L (98-107) 06/27/24 20:42 Carbon Dioxide 25 mmol/L (22-29) 06/27/24 20:42 Anion Gap 15.0 (5-19) 06/27/24 20:42 BUN 10 mg/dL (8-23) 06/27/24 20:42 Creatinine 0.5 mg/dL (0.7-1.2) L 06/27/24 20:42 GFR Calculation 168.5 mL/min (90-130) H 06/27/24 20:42 Last dialysis session:: N/A Treatment plan:: new consult Regimen:: TELEPHARMACY: Started initial dose at 1500 mg Q12H Follow up:: Will continue to monitor and follow up daily. Trough 06/29 @1200.
[2024-06-28 07:58] LABS: Glucose Point of Care 98 mg/dL (70-110)
[2024-06-28] MEDS: pantoprazole 40 mg SDV IVP ×2 (08:21→17:06)
[2024-06-28 08:44] LABS: Basophils # 0.1 10^3/uL (0.0-0.1); Basophils % 0.4 %; Eosinophils # 0.5 10^3/uL (0.0-0.8); Hematocrit 42.5 % (37-53); Lymphocytes # 3.8 10^3/uL (0.8-4.8); Lymphocytes % 31.3 %; Mean Corpuscular HGB Conc 31.8 g/dL (30-55); Mean Corpuscular Hemoglobin 27.7 pg (27-33); Mean Corpuscular Volume 87.3 fl (82-101); Mean Platelet Volume 10.2 fL (7.4-10.4); Monocytes # 0.7 10^3/uL (0.2-0.9); Monocytes % 5.6 %; Neutrophils # 7.02 10^3/uL (1.8-7.7); Neutrophils % 57.6 %; Nucleated Red Blood Cells % 0 %; Platelet Count 300 10^3/cmm (157-399); Red Blood Count 4.87 10^6/uL (3.85-5.65); White Blood Count 12.22 10^3/uL (3.29-11.43)
[2024-06-28 08:56] LABS: Estmated Average Glucose 263; Hemoglobin A1C 10.8 % (4.0-6.0)
[2024-06-28 09:00] LABS: Anion Gap 14.4 (5-19); Blood Urea Nitrogen 8 mg/dL (8-23); C Reactive Protein 12.7 mg/L (0.0-4.9); Calcium 7.6 mg/dL (8.5-10.5); Carbon Dioxide 23 mmol/L (22-29); Chloride 104 mmol/L (98-107); Creatinine Clr Calc Pharmacy 151.0297; Glomerular Filtration Rate 168.5 mL/min (90-130); Glucose 110 mg/dL (65-115); Osmolality Calculated 283 mOsm/kg (285-295); Potassium 4.4 mmol/L (3.5-5.1); Sodium 137 mmol/L (136-145)
[2024-06-28 09:17] LABS: Partial Thromboplastin Time 59.8 SECONDS (23.9-36.7)
[2024-06-28 11:38] LABS: Glucose Point of Care 111 mg/dL (70-110)
--- NOTE | 2024-06-28 11:59 | P.PN_ITS ---
Subjective 2 Subjective: Patient denies significant pain in his neck or foot. Discussed I&D planned for today and he is in agreement. He denies any recent dysphagia or trouble eating despite neck abscess. Endorses generalized malaise and fatigue. Denies other new complaints. Medications: Reviewed: Yes Vitals/I&O/Wt Last Vital Signs Temp 97.6 F 06/28/24 07:57 Pulse 93 06/28/24 09:05 Resp 16 06/28/24 09:05 BP 99/60 06/28/24 07:57 Pulse Ox 96 06/28/24 09:05 O2 Del Method Room Air 06/28/24 09:05 06/27/24 06/28/24 06/28/24 22:59 06:59 14:59 Intake Total 2663.33 / 2663.33 245.933 / 245.933 Output Total 1225 / 1225 700 / 700 Balance 1438.33 / 1438.33 -454.067 / -454.067 Weight last 48 hrs Weight 75.115 kg Weight 77.746 kg Weight 78.925 kg Weight 77.111 kg Physical Exam 2 Narrative: General: Patient is awake. Appears fatigued but pleasant. Head: Normocephalic. Atraumatic. EOM intact. Dry mucous membranes. Neck: Neck swelling with overlying erythema present. Cardiovascular: RRR. No gallops. No murmurs. Lungs: Clear to auscultation, no use of accessory muscles, no crackles or wheezes. Skin: No jaundice. No rashes. Abdomen: Normal bowel sounds, abdomen soft and nontender. Genito Urinary: Genital exam not performed since complaints not related. Rectal: Rectal exam not performed since no symptoms indicated blood loss. Extremities: No cyanosis or clubbing. Limited evaluation of right foot as it is currently bandaged. Musculoskeletal: No erythematous joints. Neurological: Moves all 4 extremities. No myoclonus. Data 06/28/24 08:30 06/28/24 08:30 Micro: Microbiology 06/27/24 20:46 Blood Culture - Preliminary Blood SPECIMEN COLLECTED 06/27/24 20:42 Blood Culture - Preliminary Blood SPECIMEN COLLECTED A&P Assessment and plan (1) Sepsis: Patient is septic with multiple sources of infection Cultures obtained, follow Surgical team was consulted for source control Continue broad-spectrum antibiotics with Zosyn/clindamycin/vancomycin (2) Peripheral arterial disease: Suspected peripheral arterial disease of the lower extremities Continue heparin drip Interventional cardiology consulted, appreciate recommendations (3) Osteomyelitis of foot: Osteomyelitis of right foot and fracture History of prior toe amputation at outside hospital, January 2024 Podiatry consulted, appreciate recommendations Qualifiers: Laterality: right Osteomyelitis type: unspecified type Qualified Code(s): M86.9 - Osteomyelitis, unspecified (4) Abscess of neck: General surgery consulted, anticipating I&D Monitor for dysphagia and worsening condition (5) Diabetes: Type 2 diabetes mellitus, uncontrolled with hyperglycemia with A1c 10.8 Currently on Accu-Cheks every 4 hours due to n.p.o. status Continue sliding scale insulin (6) Tobacco dependency: Patient benefit from tobacco cessation Plan DVT prophylaxis: Heparin drip Attestations 2 Medical Necessity Statement*: Patient requires ongoing hospitalization for I&D of neck by general surgery, surgical intervention of foot for osteomyelitis and infection, interventional cardiology evaluation, IV antibiotics, surveillance of culture data, monitoring of electrolytes, and supportive care. Coding Level of Care Code Acute Code for [facility] Diagnoses Sepsis A41.9 Peripheral arterial disease I73.9 Osteomyelitis of foot M86.9 Laterality: right Osteomyelitis type: unspecified type Abscess of neck L02.11 Diabetes E11.9 Tobacco dependency F17.200
--- NOTE | 2024-06-28 12:07 | P.ANESASSM_ITS ---
Pre-Anesthetic Assessment Height/Weight: Height 1.7 m Weight 75.115 kg Temp Pulse Resp BP Pulse Ox O2 Del Method 97.6 F 93 16 99/60 96 Room Air 06/28/24 07:57 06/28/24 09:05 06/28/24 09:05 06/28/24 07:57 06/28/24 09:05 06/28/24 09:05 Operation Date: 06/28/24 12:15 Proposed Procedures p Incision And Drainage-Posterior Neck Abscess(Not Applicable) - Louie Templeton MD Familial anesthetic complications: None Was Beta Chadwick taken within 24 hours: N/A Was Clonidine taken within 24 hours: N/A Last intake: Intake Last Liquid Date 06/27/24 Last Solid Date 06/27/24 Social Tobacco and No alcohol Exam alert, oriented x 3, clear to auscultation bilaterally and regular rate & rhythm Airway Mallampati: Class II Dentition: full CV/HEM Peripheral Vascular Disease Metabolic Diabetes Mellitus Neuropsych Cerebrovascular Accident Anesthetic Plan ASA status: 3 Anesthesia: General Risk of > 500 ml blood loss (7ml/kg in children): No Medications/Allergies Home Medications Medication Instructions Recorded Confirmed Last Taken Type empagliflozin 25 mg tablet 25 mg PO DAILY 06/28/24 06/28/24 Unknown History (Jardiance) glipizide 10 mg tablet 10 mg PO TID 06/28/24 06/28/24 Unknown History metformin 500 mg tablet,extended 500 mg PO BID 06/28/24 06/28/24 Unknown History release 24hr (osmotic) Allergies Allergy/AdvReac Type Severity Reaction Status Date / Time No Known Allergies Allergy Verified 06/16/24 03:50 Current Medications Generic Name Dose Route Start Last Admin Trade Name Freq PRN Reason Stop Dose Admin Hydrocodone Bitart/Acetaminophen 1 tab 06/28/24 00:15 06/28/24 03:22 Hydrocodone-Acetaminophen 5-325 Mg Tablet PO 1 tab Q6H PRN Administration pain Clindamycin HCl/Dextrose 900 mg in 50 mls @ 100 mls/hr 06/28/24 00:15 06/28/24 09:33 Cleocin IV 06/30/24 09:00 Infused Q8H KATHERINE Infusion Protocol Sodium Chloride 1,000 mls @ 75 mls/hr 06/28/24 02:00 06/28/24 03:27 Sodium Chloride 0.9% IV 75 mls/hr .[id number] KATHERINE Administration Vancomycin HCl 1,500 mg in 300 mls @ 200 mls/hr 06/28/24 01:00 06/28/24 03:33 Vancocin IV Infused Q12H KATHERINE Infusion Piperacillin Sod/Tazobactam 50 mls @ 12.5 mls/hr 06/28/24 03:00 06/28/24 11:53 Sod 3.375 gm/ Sodium Chloride IV 12.5 mls/hr Q8H KATHERINE Administration Heparin Sodium/Sodium Chloride 25,000 unit in 500 mls @ 0 mls/hr 06/28/24 02:45 06/28/24 09:58 Heparin Drip IV 13.94 unit/kg/hr CONT KATHERINE 22 mls/hr Titration Protocol Per Protocol Pantoprazole Sodium 40 mg 06/28/24 09:00 06/28/24 08:21 Pantoprazole 40 Mg Sdv IVP 40 mg BID KATHERINE Administration PFSH Anesthesia Medical History Elevated blood pressure reading in office with diagnosis of hypertension Atherosclerosis of coronary artery of [place] heart without angina pectoris Left carotid stenosis Left acute arterial ischemic stroke, MCA (middle cerebral artery) CVA (cerebral vascular accident) Polycythemia Acute confusion Hypertension Diabetes Surgical History History of testicular surgery Family History Denies family history of Hyperlipidemia Psychiatric illness Lung disease Hypertension Social History Smoking and tobacco/nicotine status: current every day tobacco/nicotine user Alcohol intake: never Substance/Drug Use: never Lives independently: Yes Housing: House Data Anesthesia 06/28/24 08:30 06/28/24 08:30 Short CBC 06/27/24 06/28/24 Range/Units 20:42 08:30 WBC 14.81 H 12.22 H (3.29-11.43) 10^3/uL Hgb 14.60 13.50 (11.27-16.99) g/dL Hct 44.3 42.5 (37-53) % MCV 84.9 87.3 (82-101) fl Plt Count 369 300 (157-399) 10^3/cmm Neut % (Auto) 61.3 57.6 % Neut # (Auto) 9.08 H 7.02 (1.8-7.7) 10^3/uL BMP 06/27/24 06/28/24 20:42 08:30 Sodium 136 137 Potassium 4.0 4.4 Chloride 100 104 Carbon Dioxide 25 23 BUN 10 8 Creatinine 0.5 L 0.5 L Glucose 116 H 110 Calcium 8.7 7.6 L Liver Function 06/27/24 Range/Units 20:42 Total Bilirubin 0.2 (0.15-1.2) mg/dL AST 16 (0-40) U/L ALT 16 (0-41) U/L Alkaline Phosphatase 110 (40-130) U/L Albumin 3.5 (3.5-5.2) g/dL Coags 06/27/24 06/28/24 20:42 08:30 ESR 96 H APTT 59.8 H C-Reactive Protein 22.1 H 12.7 H Microbiology 06/27/24 20:46 Blood Culture - Preliminary Blood SPECIMEN COLLECTED 06/27/24 20:42 Blood Culture - Preliminary Blood SPECIMEN COLLECTED Cardiac Studies: 2 Echocardiogram 04/23/21
--- NOTE | 2024-06-28 12:24 | W.PM.OPSUD ---
Surgery/Procedure H&P Update DATE OF PROCEDURE: June 28, 2024 DATE H&P PERFORMED: 06/27/24 H&P UPDATE INFORMATION: I have reviewed H&P completed within last 30 days, I have examined patient prior to procedure, No changes to prior documentation and H&P is in [facility] EMR on date indicated PRIMARY INDICATION FOR PROCEDURE: Osteomyelitis right foot PLANNED PROCEDURE: Operation Date: 06/28/24 12:15 Proposed Procedures Incision and debridement right foot
[2024-06-28] MEDS: lidocaine-epi 1% 20 mL INJ INJECTION (12:43)
[2024-06-28] MEDS: BUPivacaine 0.25% INJ 10 mL INJECTION (12:43)
--- NOTE | 2024-06-28 12:47 | P.OP_ITS ---
Operative Report Date of procedure: June 28, 2024 Pre-op diagnosis: Neck abscess Post-op diagnosis: Same Post-op findings: There was a 3 x 1 cm posterior neck abscess Procedure done: Incision and drainage of posterior neck abscess Implants: 1/4 inch iodoform packing Specimens removed/disposition: culture swabs Surgeon: Louie Templeton MD Estimated blood loss: 5 Brief History: 63-year-old male with a posterior neck abscess who presented to the hospital. I&D is indicated. After discussion of risk benefits we decided to proceed. Procedure: Patient was brought into the OR, he was placed in a supine position, general anesthesia was given. He was then transferred to the left lateral decubitus position. The posterior neck was prepped and draped in the usual sterile fashion. Timeout was conducted. And I used a 11 blade to make a 1.5 cm incision on the area overlying the abscess, the abscess cavity was immediately axis and about 4 cc of purulent material was drained. Cultures were taken. The curette was used to break all the loculations. I then irrigated the wound profusely. Hemostasis was verified. Local anesthesia was infiltrated. The wound was packed with quarter inch iodoform packing. Sterile dressing was nuha lied. At the end of the procedure the patient remained in the OR in stable condition to have additional procedure done by podiatry
--- NOTE | 2024-06-28 12:52 | PM.MISC ---
Miscellaneous Note Purpose of Documentation: Update on patient care Note: Incision and drainage of neck abscess was done. From the general surgery standpoint patient can continue once a day packing change, while there was a small abscess there was no significant soft tissue compromise. 1 patient is ready to transition to the outpatient setting he can be discharged home on 14 days of Augmentin. Current drip was held for surgery. Can be restarted as needed 6 hours after surgery from the general surgery standpoint.
--- NOTE | 2024-06-28 13:26 | W.PM.BPON ---
Date of Procedure: 08/14/23 Surgeon: Karl Weller [facility] Appraiser(s): David Procedure(s) performed: Incision and debridement down to bone right foot second toe Findings of the procedure(s): Devitalized distal phalanx right second toe Estimated blood loss: 2 mL Specimen(s) removed: Bone distal phalanx right second toe sent to microbiology for Gram stain, culture and sensitivity Post-operative diagnosis: Acute osteomyelitis distal phalanx right second toe
--- NOTE | 2024-06-28 13:27 | P.OP_ITS ---
Operative Report Date of procedure: June 28, 2024 Pre-op diagnosis: Acute osteomyelitis right second toe distal phalanx Chronic osteomyelitis right fifth metatarsal Post-op diagnosis: Same Procedure done: 1) incision of bone cortex right second toe. CPT code 86798 2) incision of bone cortex right fifth metatarsal. CPT code 28632 Implants: No implants Specimens removed/disposition: Bone from distal phalanx right second toe sent to microbiology for Gram stain, culture and sensitivity Surgeon: Karl Weller DPM [employer] Technician: Gerson Willis Estimated blood loss: 2 mL No tourniquet utilized IV fluids: see intraoperative documentation Urine output: None Complications: No complications Findings: Devitalized bone distal phalanx right second toe consistent with acute osteomyelitis Sinus tract probing to bone with stable appearing wound right lateral foot probing to fifth metatarsal chronic in nature Brief History: Acute osteomyelitis right second toe with wound probing to bone necessitating surgical debridement he has chronic osteomyelitis right fifth metatarsal sinus tract also amenable to debridement. Procedure: Under mild sedation the patient was brought to the operating room and placed on the operating table in supine position. A timeout was performed. Anesthesia was already administered by the anesthesia service Following a general surgeon who did an I&D on the patient's neck abscess. Right lower extremity was scrubbed, prepped and draped utilizing normal aseptic technique. Attention was directed to the distal aspect of the right second toe which was noted to have a contracted position with sagittal plane dominant hammertoe deformity, wound at the distal tuft probe directly to bone with surrounding erythema encompassing the second toe distal one third of the digit, the wound probes directly to bone. The bone of the distal phalanx was incised sharply with pickups and a #15 blade, devitalized bone was incised and harvested and passed from the operative field to be sent to microbiology for Gram stain, culture and sensitivity. No further devitalized bone appreciated after incision of bone cortex, the incision was irrigated with copious amounts of sterile saline solution. Attention was then directed to the lateral aspect of the right foot at the level of the lateral fifth metatarsal phalangeal joint where sinus tract was appreciated this probe directly to bone there is no periwound erythema and no purulent drainage, the tract probe directly to the lateral aspect of the fifth metatarsal bone which cortex was then incised sharply with a #15 blade this with a fresh #15 blade as did not cross contaminate. After incision down to bone was performed no further devitalized bone was appreciated this wound had more chronic appearing and stable appearing nature. The incision was irrigated with copious amounts of sterile skin solution. Saline wet-to-dry dressing applied to the left foot wounds and incisions, Kerlix, tape. No tourniquet utilized. Patient tolerated the procedure and anesthesia well and was transferred to the PACU with vital signs stable and vascular status intact. Patient has pending vascular consult to potentially optimize blood flow to the lower extremities. He is receiving empiric antibiotics will continue this until cultures yield further information
--- NOTE | 2024-06-28 13:45 | ANE.PACU2 ---
Inpatient post-anesthesia follow up: Airway intact: Yes Vital signs: Temperature 97.1 F Pulse Rate 82 Respiratory Rate 13 Blood Pressure 114/70 Pulse Oximetry 97 Oxygen Delivery Me thod Room Air Oxygen Flow Rate Fraction of Inspir ed Oxygen Hydration adequate: Yes Nausea and vomiting: No Pain level: 1 Mental status: Baseline
--- NOTE | 2024-06-28 13:52 | P.CONIM_ITS ---
<Statement entered by Jose Moise M.D - 06/29/24 20:30> Patient was evaluated and cared for in conjunction with an advanced practice practitioner. I personally examined the patient and reviewed the chart and all pertinent data including imaging, telemetry, and laboratory results. I discussed the patient in detail with the advanced practice practitioner. Please see their note for complete consult note, results and agreed upon plan of care for the patient. Patient has chronic limb threatening ischemia of right lower extremity. On review of CTA, patient has critical right lower extremity PAD specifically in the right SFA. We will proceed with peripheral angiogram with possible intervention tomorrow. NPO past midnight. Risks and benefits of the procedure have been discussed with the patient. GENERAL: Patient is alert and oriented HEART: Regular S1 and S2 LUNGS: Clear to auscultation bilaterally EXTREMITIES: Lower extremities with no edema. Pulses are not palpable bilaterally. Dressing applied on right foot. Providers/Reason For Consult 2 Consulting Physician/Specialty*: Dr Moise, cardiology Reason for Consult*: nonhealing wounds, right foot and moderate to severe PAD Requesting Physician: Dr Srinivasan Attending Physician: Kyle Hawthorne MD Primary Care Provider: Dustin Machado DO History of Present Illness History of Present Illness Tom Lyons is a 63 year old male with past medical history of CAD (history of 2 stents unknown vessels), CVA 2020, carotid disease with history of carotid endarterectomy in [place] in 2020, polycythemia, diabetes, hypertension, history of noncompliance with medications. He last followed up with Dr. Bishop in 2022-patient was unreachable by phone. He is a smoker, previous daily alcohol use- quit about 9 years ago. History of right great toe amputation at [facility] 2023. Patient presented to the emergency room yesterday with neck abscess and swelling/cellulitis of the right foot. Found to have osteomyelitis. CTA of the aorta with runoff revealed on the right: Severe stenosis of the ostium of the internal iliac, 60% stenosis, right common femoral, 60% stenosis of the proximal SFA with intermittent stenoses throughout, critical stenosis in the mid SFA- no flow in the dorsalis pedis artery. On the left: Severe stenosis at the ostium of the internal iliac, 50% proximal left SFA stenosis, no flow in the dorsalis pedis. Patient was started on a heparin infusion. He notes pain in the right foot currently. Review of Systems 2 Const: Denies: fever(s), chills, change in weight, fatigue or diaphoresis Eyes: Denies: change in vision ENMT: Denies: epistaxis Card: Denies: chest pain, palpitations, irregular heart rhythm, edema, syncope, pre-syncope, dyspnea on exertion, orthopnea or leg pain with exertion Resp: Denies: dyspnea, productive cough or wheezing GI: Denies: nausea, vomiting, hematemesis, hematochezia or melena : Denies: hematuria Musc: Denies: extremity swelling Stewart/Lymph: Denies: easy bruising or easy bleeding Medications/Allergies Home Medications Medication Instructions Recorded Confirmed Last Taken Type empagliflozin 25 mg tablet 25 mg PO DAILY 06/28/24 06/28/24 Unknown History (Jardiance) glipizide 10 mg tablet 10 mg PO TID 06/28/24 06/28/24 Unknown History metformin 500 mg tablet,extended 500 mg PO BID 06/28/24 06/28/24 Unknown History release 24hr (osmotic) Allergies Allergy/AdvReac Type Severity Reaction Status Date / Time No Known Allergies Allergy Verified 06/16/24 03:50 Current Medications Generic Name Dose Route Start Last Admin Trade Name Freq PRN Reason Stop Dose Admin Hydrocodone Bitart/Acetaminophen 1 tab 06/28/24 00:15 06/28/24 03:22 Hydrocodone-Acetaminophen 5-325 Mg Tablet PO 1 tab Q6H PRN Administration pain Clindamycin HCl/Dextrose 900 mg in 50 mls @ 100 mls/hr 06/28/24 00:15 06/28/24 09:33 Cleocin IV 06/30/24 09:00 Infused Q8H KATHERINE Infusion Protocol Sodium Chloride 1,000 mls @ 75 mls/hr 06/28/24 02:00 06/28/24 03:27 Sodium Chloride 0.9% IV 75 mls/hr .[id number] KATHERINE Administration Vancomycin HCl 1,500 mg in 300 mls @ 200 mls/hr 06/28/24 01:00 06/28/24 13:22 Vancocin IV 200 mls/hr Q12H KATHERINE Administration Piperacillin Sod/Tazobactam 50 mls @ 12.5 mls/hr 06/28/24 03:00 06/28/24 13:00 Sod 3.375 gm/ Sodium Chloride IV Infused Q8H KATHERINE Infusion Heparin Sodium/Sodium Chloride 25,000 unit in 500 mls @ 0 mls/hr 06/28/24 02:45 06/28/24 09:58 Heparin Drip IV 13.94 unit/kg/hr CONT KATHERINE 22 mls/hr Titration Protocol Per Protocol Pantoprazole Sodium 40 mg 06/28/24 09:00 06/28/24 08:21 Pantoprazole 40 Mg Sdv IVP 40 mg BID KATHERINE Administration PFSH Acute 2 PFSH: Medical History (Updated 06/28/24 @ 14:12 by BILL Ham) Elevated blood pressure reading in office with diagnosis of hypertension Atherosclerosis of coronary artery of [place] heart without angina pectoris Left carotid stenosis Left acute arterial ischemic stroke, MCA (middle cerebral artery) CVA (cerebral vascular accident) Polycythemia Acute confusion Hypertension Diabetes Surgical History History of testicular surgery Family History Denies family history of Hyperlipidemia Psychiatric illness Lung disease Hypertension Social History Smoking and tobacco/nicotine status: current every day tobacco/nicotine user Alcohol intake: never Substance/Drug Use: never Lives independently: Yes Housing: House Vitals/I&O/Wt Last Vital Signs Temp 97.1 F L 06/28/24 13:44 Pulse 82 06/28/24 13:44 Resp 13 06/28/24 13:44 BP 114/70 06/28/24 13:44 Pulse Ox 97 06/28/24 13:44 O2 Del Method Room Air 06/28/24 13:44 06/27/24 06/28/24 06/28/24 22:59 06:59 14:59 Intake Total 2663.33 / 2663.33 345.933 / 345.933 Output Total 1225 / 1225 702 / 702 Balance 1438.33 / 1438.33 -356.067 / -356.067 Weight last 48 hrs Weight 165 lb 9.6 oz Weight 171 lb 6.4 oz Weight 174 lb Weight 170 lb Physical Exam 2 Const: COMMON NORMALS: no acute distress and patient oriented x3 GENERAL APPEARANCE: cooperative and comfortable ORIENTATION/CONSCIOUSNESS: Yes awake, Yes oriented to person, Yes oriented to place and Yes oriented to time Chest: COMMONS NORMALS: normal inspection of the chest and normal palpation of entire chest wall CHEST: Yes Symmetrical chest wall rise Resp: COMMON NORMALS: normal respiratory effort, No retractions, No use of accessory muscles and clear to auscultation bilaterally EFFORT & INSPECTION: Yes symmetric chest movement AUSCULTATION: clear to auscultation bilaterally Cardio: COMMON NORMALS: regular rate, regular rhythm, S1 normal heart sound present, S2 normal heart sound present, No gallops present (Cardio), No clicks present (Cardio), No murmurs present (Cardio) and No rub (Cardio) RATE: r egular rate RHYTHM: regular rhythm HEART SOUNDS: S1 normal heart sound present and S2 normal heart sound present PERIPHERAL PULSES: radial pulses present, posterior tibial pulses present positive bilateral diminished and dorsalis pedis pulses not present Extremity: COMMON NORMALS: no pedal edema Neuro: COMMON NORMALS: patient oriented x3 and moves all extremities S ENSORIUM/ORIENTATION: Yes oriented to person, Yes oriented to place and Yes oriented to time Data 06/28/24 08:30 06/28/24 08:30 Micro: Microbiology 06/27/24 20:46 Blood Culture - Preliminary Blood SPECIMEN COLLECTED 06/27/24 20:42 Blood Culture - Preliminary Blood SPECIMEN COLLECTED A&P Assessment and plan (1) Peripheral arterial disease: (2) Diabetes: (3) Osteomyelitis of foot: Qualifiers: Laterality: right Osteomyelitis type: unspecified type Qualified Code(s): M86.9 - Osteomyelitis, unspecified (4) Acute osteomyelitis of toe of right foot: (5) Tobacco dependency: (6) Hypertension: Plan He has severe PAD with nonhealing wounds, and osteomyelitis right 2nd toe. He has been seen by podiatry-planned debridement of the right foot second toe. He also underwent an I&D of the neck abscess, antibiotics started. Plan by general surgery is to restart heparin drip 6 hours after surgery. Due to the severe stenoses found on the CTA of lower extremities with nonhealing wound, will plan for peripheral angiogram tomorrow with possible intervention. Coding Level of Care Code Acute Code for [facility] Diagnoses Peripheral arterial disease I73.9 Diabetes E11.9 Osteomyelitis of foot M86.9 Laterality: right Osteomyelitis type: unspecified type Acute osteomyelitis of toe of right foot M86.171 Tobacco dependency F17.200 Hypertension I10
[2024-06-28 14:35] LABS: Glucose Point of Care 201 mg/dL (70-110)
[2024-06-28] MEDS: morphine IR 15 mg Tablet PO ×2 (15:22→21:34)
[2024-06-28 16:23] LABS: Glucose Point of Care 276 mg/dL (70-110)
[2024-06-28] MEDS: nicotine 21 mg Patch 1 PATCH TRANSDERMA (17:06)
[2024-06-28 19:04] LABS: Partial Thromboplastin Time 41.2 SECONDS (23.9-36.7)
--- NOTE | 2024-06-28 20:11 | PC.NURSE ---
on 06/28/23 admit to [facility] surg floor, unable to palpate pedal pulses doppler used to auscultate pedal pulses, no pedal pulse auscultated to right foot, ddiminished pedal pulse to left foot
[2024-06-28 22:11] LABS: Glucose Point of Care 284 mg/dL (70-110)
[2024-06-29] VITALS (7 sets, daily range): BP systolic 108–128; BP diastolic 61–69; PULSE 91–104; RESP 12–18; TEMP 36.4–36.8; O2SAT 93–97
[2024-06-29] MEDS: vancomycin 1,500 MG/300 ML PIGGYBACK 200 MG IV ×2 (01:00→14:43)
[2024-06-29 01:55] LABS: Basophils % 0.3 %; Eosinophils % 0.1 %; Hematocrit 39.5 % (37-53); Lymphocytes # 2.2 10^3/uL (0.8-4.8); Lymphocytes % 15.1 %; Mean Corpuscular HGB Conc 31.9 g/dL (30-55); Mean Corpuscular Hemoglobin 27.9 pg (27-33); Mean Corpuscular Volume 87.4 fl (82-101); Mean Platelet Volume 10.5 fL (7.4-10.4); Monocytes # 0.6 10^3/uL (0.2-0.9); Monocytes % 4.3 %; Neutrophils # 11.42 10^3/uL (1.8-7.7); Neutrophils % 79.6 %; Nucleated Red Blood Cells % 0 %; Platelet Count 337 10^3/cmm (157-399); Red Blood Count 4.52 10^6/uL (3.85-5.65); Red Cell Distribution Width 12.8 % (12.1-15.1); White Blood Count 14.34 10^3/uL (3.29-11.43)
[2024-06-29 02:08] LABS: Albumin Level 2.9 g/dL (3.5-5.2); Anion Gap 14.4 (5-19); Blood Urea Nitrogen 14 mg/dL (8-23); Carbon Dioxide 24 mmol/L (22-29); Chloride 101 mmol/L (98-107); Creatinine Clr Calc Pharmacy 94.3935; Glucose 282 mg/dL (65-115); Magnesium 2.2 mg/dL (1.7-2.3); Partial Thromboplastin Time 94.6 SECONDS (23.9-36.7); Phosphorus 3.5 mg/dL (2.5-4.5); Potassium 4.4 mmol/L (3.5-5.1); Sodium 135 mmol/L (136-145)
[2024-06-29] MEDS: heparin drip 25,000 UNIT/500 ML PREMIX 22 UNIT IV (02:23)
[2024-06-29] MEDS: piperacillin-tazobactam 3.375 GM in sodium chloride 0.9% (plus) 50 ML IV ×3 (02:48→20:16)
[2024-06-29 02:55] LABS: Glucose Point of Care 180 mg/dL (70-110)
[2024-06-29] MEDS: sodium chloride 0.9% 1,000 ML 75 ML IV ×2 (05:41→20:17)
--- NOTE | 2024-06-29 05:53 | ECG_ITS ---
[facility] Test Date: 2024-06-29 Pat Name: Tom Lyons Department: Room: 252 Gender: Male Trackwalker: : 1960 Requested By: Cyrus Lebron Order Number: [id number] Melissa MD: Jose Moise M.D. Measurements Intervals [place] Rate: 98 P: 51 NH: 187 QRS: 28 QRSD: 96 T: 74 QT: 370 QTc: 474 Interpretive Statements SINUS RHYTHM POSSIBLE LEFT ATRIAL ENLARGEMENT [-0.1mV P-WAVE IN V1/V2] NONSPECIFIC T-WAVE ABNORMALITY Compared to ECG 01/02/2023 07:41:42 No significant changes Electronically Signed On 07-02-2024 13:43:26 MATH INSTRUCTOR by Jose Moise M.D. [email or web address]
[2024-06-29 06:35] LABS: Glucose Point of Care 165 mg/dL (70-110)
--- NOTE | 2024-06-29 06:52 | P.PN_ITS ---
Subjective 2 Subjective: Patient seen bedside this a.m., resting comfortably, endorses minimal discomfort right foot operative sites. Patient denies any subjective nausea, vomiting, fever, chills, shortness of breath or chest pain. He is 1 day status post incision and debridement right foot secondary to osteomyelitis. Vitals/I&O/Wt Last Vital Signs Temp 97.8 F 06/29/24 04:00 Pulse 104 H 06/29/24 04:00 Resp 18 06/29/24 04:00 BP 111/69 06/29/24 04:00 Pulse Ox 94 06/29/24 04:00 O2 Del Method Room Air 06/29/24 04:00 06/28/24 06/28/24 06/29/24 14:59 22:59 06:59 Intake Total 645.933 / 646.261 6104.233 / 3251.166 1490.084 / 4741.250 Output Total 1152 / 1152 750 / 1902 600 / 2502 Balance -506.067 / -149.818 9777.233 / 1349.166 890.084 / 2239.250 Weight last 48 hrs Weight 176 lb Weight 165 lb 9.6 oz Weight 171 lb 6.4 oz Weight 174 lb Weight 170 lb Physical Exam 2 Narrative: Const: COMMON NORMALS: no acute distress, patient oriented x3 and alert HENMT: COMMON NORMALS: normocephalic HEAD & SCALP: normocephalic Eye: COMMON NORMALS: Equal, round and reactive pupils present PUPIL: Yes Equal, round and reactive pupils present Resp: COMMON NORMALS: normal respiratory effort, No retractions and No use of accessory muscles Cardio: COMMON NORMALS: regular rate RATE: regular rate PERIPHERAL PULSES: popliteal pulses present, posterior tibial pulses present and dorsalis pedis pulses not present Extremity: COMMON NORMALS: no calf tenderness; negative for no pedal edema GENERAL: Yes deformity Neuro: COMMON NORMALS: patient oriented x3 SENSORIUM/ORIENTATION: Yes alert SENSORY EXAM: Yes extremities MONOFILAMENT EXAM PERFORMED: Yes MOTOR EXAM: 5/5 motor strength present throughout Psych: COMMON NORMALS: cooperative Skin: NARRATIVE SKIN EXAM: Sinus tract right lateral forefoot adjacent to the fifth metatarsal phalangeal joint has stable appearing wound, there is no periwound erythema no drainage there is a sinus tract probing to fifth metatarsal head laterally. More healthy appearing wound at the distal tuft of the right second toe, bleeding with dressing change, hemostasis via manual pressure, no purulent drainage, residual erythema at the distal one third of the right second toe without proximal lymphangitic streaking. WOUNDS: Yes wounds noted NAILS: discolored, dystrophic and yellow and thickened Data 06/29/24 01:35 06/29/24 01:35 Micro: Microbiology 06/27/24 20:46 Blood Culture - Preliminary Blood NEGATIVE TO DATE 06/27/24 20:42 Blood Culture - Preliminary Blood NEGATIVE TO DATE A&P Assessment and plan (1) Diabetic peripheral neuropathy associated with type 2 diabetes mellitus: (2) Peripheral arterial disease: (3) Chronic osteomyelitis of metatarsal bone of right foot: (4) Acute osteomyelitis of toe of right foot: Plan 63-year-old uncontrolled diabetic male with acute osteomyelitis right second toe and chronic osteomyelitis right fifth metatarsal Dressing change this a.m. Betadine wet-to-dry Continuing empiric IV antibiotics Bone culture from right second toe taken intraoperatively 06/28/2024 pending, may narrow antibiotics once cultures yield further information Anticipate 6-week course of antibiotic therapy at discharge and wound care clinic follow-up Patient may heel touch for transfers with postop shoe. Attestations 2 Medical Necessity Statement*: Requires continued IV antibiotics for acute osteomyelitis right second toe, requires continued wound care Coding Level of Care Code Acute Code for [facility] Diagnoses Diabetic peripheral neuropathy associated with type 2 diabetes mellitus E11.42 Peripheral arterial disease I73.9 Chronic osteomyelitis of metatarsal bone of right foot M86.671 Acute osteomyelitis of toe of right foot M86.171
--- NOTE | 2024-06-29 07:37 | P.PN_ITS ---
Subjective 2 Subjective: Doing well from the surgical standpoint. No significant discharge from the neck just some serosanguineous fluid. Vitals/I&O/Wt Last Vital Signs Temp 97.8 F 06/29/24 04:00 Pulse 104 H 06/29/24 04:00 Resp 18 06/29/24 04:00 BP 111/69 06/29/24 04:00 Pulse Ox 94 06/29/24 04:00 O2 Del Method Room Air 06/29/24 04:00 06/28/24 06/29/24 06/29/24 22:59 06:59 14:59 Intake Total 2605.233 / 3251.166 1540.084 / 4791.250 Output Total 750 / 1902 600 / 2502 Balance 1855.233 / 1349.166 940.084 / 2289.250 Weight last 48 hrs Weight 176 lb Weight 165 lb 9.6 oz Weight 171 lb 6.4 oz Weight 174 lb Weight 170 lb Physical Exam 2 Neck/C-Spine: OTHER: Surgical site is patent with clean packing. No surrounding erythema, no residual drainage Data 06/29/24 01:35 06/29/24 01:35 Micro: Microbiology 06/27/24 20:46 Blood Culture - Preliminary Blood NEGATIVE TO DATE 06/27/24 20:42 Blood Culture - Preliminary Blood NEGATIVE TO DATE A&P Assessment and plan (1) Abscess of neck: Plan Good progression from the general surgery standpoint. Patient will receive once a day packing change with quarter inch iodoform packing by nursing staff. He will return in 2 weeks to my office to evaluate wound healing. From the surgical standpoint he should be discharged home on 14 days of Augmentin. Attestations 2 Medical Necessity Statement*: Per medical team Coding Level of Care Code Acute Code for [facility] Diagnoses Abscess of neck L02.11
[2024-06-29] MEDS: nicotine 21 mg Patch 1 PATCH TRANSDERMA (09:03)
[2024-06-29] MEDS: pantoprazole 40 mg SDV IVP ×2 (09:04→18:26)
[2024-06-29] MEDS: aspirin 325 mg Tablet PO (09:04)
[2024-06-29] MEDS: diphenhydrAMINE 50 mg Capsule PO (09:04)
[2024-06-29] MEDS: morphine IR 15 mg Tablet PO ×2 (09:04→20:24)
[2024-06-29] MEDS: clindamycin 900 MG/50 ML PREMIX 100 MG IV ×2 (09:07→18:26)
[2024-06-29 10:03] LABS: Glucose Point of Care 338 mg/dL (70-110)
--- NOTE | 2024-06-29 10:20 | PM.PN ---
Subjective Subjective: Patient reports mild discomfort in his posterior neck. Denies fevers or chills. Denies current pain in his foot. Reports he slept okay. N.p.o. for procedure today. Discussed plan of care for today and he is in agreement. Medications: Reviewed: Yes Vitals/I&O/Wt Last Vital Signs Temp 97.5 F L 06/29/24 07:53 Pulse 97 06/29/24 08:53 Resp 16 06/29/24 09:04 BP 108/61 06/29/24 07:53 Pulse Ox 95 06/29/24 08:53 O2 Del Method Room Air 06/29/24 08:53 06/28/24 06/29/24 06/29/24 22:59 06:59 14:59 Intake Total 2605.233 / 3251.166 1540.084 / 4791.250 179.067 / 179.067 Output Total 750 / 1902 600 / 2502 Balance 1855.233 / 1349.166 940.084 / 2289.250 179.067 / 179.067 Weight last 48 hrs Weight 79.832 kg Weight 75.115 kg Weight 77.746 kg Weight 78.925 kg Weight 77.111 kg Physical Exam Narrative: General: Patient is awake. Still appears fatigued but conversational. Head: Normocephalic. Atraumatic. EOM intact. Neck: Posterior neck wound is covered with bandage. Cardiovascular: RRR. No gallops. No murmurs. Lungs: Clear to auscultation, no use of accessory muscles, no crackles or wheezes. Skin: No jaundice. No rashes. Abdomen: Normal bowel sounds, abdomen soft and nontender. Extremities: No cyanosis or clubbing. Limited evaluation of right foot as it is currently bandaged. Musculoskeletal: No erythematous joints. Neurological: Moves all 4 extremities. No myoclonus. Data 06/29/24 01:35 06/29/24 01:35 Micro: Microbiology 06/27/24 20:46 Blood Culture - Preliminary Blood NEGATIVE TO DATE 06/27/24 20:42 Blood Culture - Preliminary Blood NEGATIVE TO DATE A&P Assessment and plan (1) Sepsis: Status post neck I&D for source control Status post podiatry surgery on right foot for source control Follow cultures Will likely need line for 6 weeks IV antibiotics, will coordinate after bacteremia has been ruled out Continue broad-spectrum antibiotics with Zosyn/clindamycin/vancomycin (2) Peripheral arterial disease: Peripheral arterial disease of the lower extremities Continue heparin drip Interventional cardiology following, anticipating angiogram today for which she is n.p.o. (3) Osteomyelitis of foot: Osteomyelitis of right foot Podiatry following, appreciate recommendations Status post podiatry surgery by Dr. Weller a 06/28 Follow-up path Continue antibiotics as above Qualifiers: Laterality: right Osteomyelitis type: unspecified type Qualified Code(s): M86.9 - Osteomyelitis, unspecified (4) Abscess of neck: General surgery following, status post I&D 06/28 Wound care orders per Antibiotics as above (5) Diabetes: Type 2 diabetes mellitus, uncontrolled with hyperglycemia with A1c 10.8 Currently on Accu-Cheks every 4 hours due to n.p.o. status Considered long-acting, blood sugars been somewhat labile so we will hold off for now Continue sliding scale insulin (6) Tobacco dependency: Patient benefit from tobacco cessation Plan DVT prophylaxis: Heparin drip Attestations Medical Necessity Statement*: Patient requires ongoing hospitalization for underlying treatment of his sepsis with IV antibiotics, following of cultures, additional angiogram of lower extremities days, electrolyte management and supportive care. Coding Level of Care Code Acute Code for [facility] Diagnoses Sepsis A41.9 Peripheral arterial disease I73.9 Osteomyelitis of foot M86.9 Laterality: right Osteomyelitis type: unspecified type Abscess of neck L02.11 Diabetes E11.9 Tobacco dependency F17.200
--- NOTE | 2024-06-29 10:40 | P.PN_ITS ---
<Statement entered by Jose Moise M.D - 06/29/24 20:47> Patient was evaluated and cared for in conjunction with an advanced practice practitioner. I personally examined the patient and reviewed the chart and all pertinent data including imaging, telemetry, and laboratory results. I discussed the patient in detail with the advanced practice practitioner. Please see their note for complete progress note, results and agreed upon plan of care for the patient. Patient had successful revascularization of 99% mid SFA stenosis. Continue aspirin and plavix. GENERAL: Patient is alert and oriented HEART: Regular S1 and S2 LUNGS: Clear to auscultation bilaterally EXTREMITIES: Lower extremities with no edema. Posterior tibial artery is patent. Subjective 2 Subjective: No events overnight, patient lying comfortably in bed. No chest pain or shortness of breath. No pain in the right foot currently. Plan for peripheral angiogram today. BUN 14, creatinine 0.8. Blood pressure well-controlled. Vitals/I&O/Wt Last Vital Signs Temp 97.5 F L 06/29/24 07:53 Pulse 97 06/29/24 08:53 Resp 16 06/29/24 09:04 BP 108/61 06/29/24 07:53 Pulse Ox 95 06/29/24 08:53 O2 Del Method Room Air 06/29/24 08:53 06/28/24 06/29/24 06/29/24 22:59 06:59 14:59 Intake Total 2605.233 / 4791.250 1540.084 / 4791.250 179.067 / 179.067 Output Total 750 / 2502 600 / 2502 Balance 1855.233 / 2289.250 940.084 / 2289.250 179.067 / 179.067 Weight last 48 hrs Weight 176 lb Weight 165 lb 9.6 oz Weight 171 lb 6.4 oz Weight 174 lb Weight 170 lb Physical Exam 2 Const: COMMON NORMALS: no acute distress and patient oriented x3 GENERAL APPEARANCE: cooperative and comfortable ORIENTATION/CONSCIOUSNESS: Yes awake, Yes oriented to person, Yes oriented to place and Yes oriented to time Chest: COMMONS NORMALS: normal inspection of the chest and normal palpation of entire chest wall CHEST: Yes Symmetrical chest wall rise Resp: COMMON NORMALS: normal respiratory effort, No retractions, No use of accessory muscles and clear to auscultation bilaterally EFFORT & INSPECTION: Yes symmetric chest movement AUSCULTATION: clear to auscultation bilaterally Cardio: COMMON NORMALS: regular rate, regular rhythm, S1 normal heart sound present, S2 normal heart sound present, No gallops present (Cardio), No clicks present (Cardio), No murmurs present (Cardio) and No rub (Cardio) RATE: r egular rate RHYTHM: regular rhythm HEART SOUNDS: S1 normal heart sound present and S2 normal heart sound present PERIPHERAL PULSES: radial pulses present Extremity: COMMON NORMALS: no pedal edema Neuro: COMMON NORMALS: patient oriented x3 and moves all extremities S ENSORIUM/ORIENTATION: Yes oriented to person, Yes oriented to place and Yes oriented to time Data 06/29/24 01:35 06/29/24 01:35 Micro: Microbiology 06/27/24 20:46 Blood Culture - Preliminary Blood NEGATIVE TO DATE 06/27/24 20:42 Blood Culture - Preliminary Blood NEGATIVE TO DATE A&P Assessment and plan (1) Peripheral arterial disease: (2) Hypertension: (3) Tobacco dependency: (4) Acute osteomyelitis of toe of right foot: Plan He underwent debridement of the second right toe yesterday. Plan for peripheral angiogram today, attempt to revascularize for wound healing. Attestations 2 Medical Necessity Statement*: Peripheral angiogram, severe PAD Coding Level of Care Code Acute Code for [facility] Diagnoses Peripheral arterial disease I73.9 Hypertension I10 Tobacco dependency F17.200 Acute osteomyelitis of toe of right foot M86.171
--- NOTE | 2024-06-29 10:52 | PC.NURSE ---
patient left for earth science laboratory technician at 1050am
--- NOTE | 2024-06-29 11:12 | W.PM.OPSUD ---
Surgery/Procedure H&P Update DATE OF PROCEDURE: June 29, 2024 DATE H&P PERFORMED: 06/28/24 H&P UPDATE INFORMATION: I have reviewed H&P completed within last 30 days, I have examined patient prior to procedure and No changes to prior documentation PREOP DIAGNOSIS: Non healing foot wounds/ Severe Peripheral artery disease/ CLTI PRIMARY INDICATION FOR PROCEDURE: Non healing foot wounds/ Severe Peripheral artery disease/ CLTI (chronic limb threatening ischemia) PLANNED PROCEDURE: Operation Date: 06/29/24 Proposed Procedures Peripheral angiogram with possible intervention PATIENT REASSESSED PRIOR TO SEDATION, WITH NO CHANGE NOTED: Yes PHYSICAL EXAM: alert, oriented x 3, clear to auscultation bilaterally and regular rate & rhythm OTHER PERTINENT EXAM FINDINGS: Pulses are difficult to palpate bilaterally AIRWAY EVAL/ANESTHESIA PLAN: normal airway, ASA III, Local Anesthesia, Risks, benefits & alternatives of sedation and/or procedure discussed and Patient agrees to continue as planned ADDITIONAL INFORMATION: Moderate sedation
--- NOTE | 2024-06-29 13:02 | PM.PROC ---
Procedure Note: Date of procedure: 06/29/24 Pre-procedure diagnosis: Chronic limb threatening ischemia/ Severe PAD Post-procedure diagnosis: other (Critical 99% mid SFA stenosis s/p successful revascularization with balloon angioplasty) Procedure: Peripheral angiogram demonstrated critical 99% mid SFA stenosis status post successful revascularization with balloon angioplasty with 6.0 x 60 mm balloon. Below the knee patient has good two-vessel runoff with patent posterior tibial artery and peroneal artery. Anterior tibial artery is totally occluded. Aspirin and plavix Performing Provider: Jose Moise Complications: None Condition: stable Disposition: floor Coding Level of Care Code Acute Code for [facility] Fwd
--- NOTE | 2024-06-29 13:56 | PC.NURSE ---
Patient transferred to CSU from ear mold laboratory technician at 1320, with a left peripheral sheath.
[2024-06-29 14:36] LABS: Vancomycin Trough 11.4 ug/mL (10-15)
[2024-06-29 17:26] LABS: Partial Thromboplastin Time 33.7 SECONDS (23.9-36.7)
[2024-06-29 17:34] LABS: Glucose Point of Care 194 mg/dL (70-110)
[2024-06-29] MEDS: HYDROcodone-acetaminophen 5-325 mg Tablet 1 TAB PO (18:37)
--- NOTE | 2024-06-29 19:17 | PC.NURSE ---
Patient presented from stores laborer with a left femoral sheath and pressure bag. Sheath is pulled at 1745. Hemostasis is obtained immediately. Manual pressure was held for 20 minutes. No hematoma is noted. A dressing of a folded 4x4 and tegaderm is applied. Patient tolerated well. Vitals remained stable. Patient is reeducated to not move his left leg or sit up more than 30 degrees until midnight. Patient states understanding.
[2024-06-29 21:39] LABS: Glucose Point of Care 176 mg/dL (70-110)
[2024-06-30] VITALS (10 sets, daily range): BP systolic 122–173; BP diastolic 72–87; PULSE 96–111; RESP 12–20; TEMP 36.6–36.9; O2SAT 92–95
[2024-06-30] MEDS: clindamycin 900 MG/50 ML PREMIX 100 MG IV ×2 (00:56→08:38)
[2024-06-30] MEDS: vancomycin 1,750 MG/350 ML PIGGYBACK 175 MG IV ×2 (01:28→14:14)
[2024-06-30] MEDS: piperacillin-tazobactam 3.375 GM in sodium chloride 0.9% (plus) 50 ML IV ×3 (03:41→18:22)
[2024-06-30 04:02] LABS: Basophils % 0.2 %; Eosinophils # 0.2 10^3/uL (0.0-0.8); Eosinophils % 1.7 %; Hematocrit 41.4 % (37-53); Lymphocytes # 3.7 10^3/uL (0.8-4.8); Lymphocytes % 26.1 %; Mean Corpuscular HGB Conc 31.6 g/dL (30-55); Mean Corpuscular Hemoglobin 27.9 pg (27-33); Mean Corpuscular Volume 88.1 fl (82-101); Mean Platelet Volume 10.2 fL (7.4-10.4); Monocytes # 0.9 10^3/uL (0.2-0.9); Monocytes % 6.2 %; Neutrophils % 65.1 %; Nucleated Red Blood Cells % 0 %; Platelet Count 304 10^3/cmm (157-399); Red Cell Distribution Width 13.1 % (12.1-15.1); White Blood Count 14.15 10^3/uL (3.29-11.43)
[2024-06-30 04:23] LABS: Anion Gap 11.3 (5-19); Blood Urea Nitrogen 8 mg/dL (8-23); Carbon Dioxide 27 mmol/L (22-29); Chloride 103 mmol/L (98-107); Creatinine Clr Calc Pharmacy 86.1765; Glomerular Filtration Rate 85.5 mL/min (90-130); Glucose 182 mg/dL (65-115); Osmolality Calculated 287 mOsm/kg (285-295); Potassium 4.3 mmol/L (3.5-5.1); Sodium 137 mmol/L (136-145)
[2024-06-30 04:24] LABS: Magnesium 2.1 mg/dL (1.7-2.3)
[2024-06-30 06:42] LABS: Glucose Point of Care 134 mg/dL (70-110)
--- NOTE | 2024-06-30 07:35 | PM.PN ---
Subjective Subjective: Patient seen bedside this a.m., denies any pain to the right foot. Status post debridement right foot second toe and lateral fifth metatarsal. Vitals/I&O/Wt Last Vital Signs Temp 97.9 F 06/30/24 05:27 Pulse 99 06/30/24 05:40 Resp 12 06/30/24 05:27 BP 133/78 06/30/24 05:27 Pulse Ox 92 06/30/24 05:27 O2 Del Method Room Air 06/30/24 05:27 06/29/24 06/30/24 06/30/24 22:59 06:59 14:59 Intake Total 1960 / 2139.067 800 / 2939.067 Output Total 1275 / 1725 600 / 2325 Balance 685 / 414.067 200 / 614.067 Weight last 48 hrs Weight 172 lb 14.4 oz Weight 176 lb Physical Exam Narrative: Const: COMMON NORMALS: no acute distress, patient oriented x3 and alert HENMT: COMMON NORMALS: normocephalic HEAD & SCALP: normocephalic Eye: COMMON NORMALS: Equal, round and reactive pupils present PUPIL: Yes Equal, round and reactive pupils present Resp: COMMON NORMALS: normal respiratory effort, No retractions and No use of accessory muscles Cardio: COMMON NORMALS: regular rate RATE: regular rate PERIPHERAL PULSES: popliteal pulses present, posterior tibial pulses present and dorsalis pedis pulses not present Extremity: COMMON NORMALS: no calf tenderness; negative for no pedal edema GENERAL: Yes deformity Neuro: COMMON NORMALS: patient oriented x3 SENSORIUM/ORIENTATION: Yes alert SENSORY EXAM: Yes extremities MONOFILAMENT EXAM PERFORMED: Yes MOTOR EXAM: 5/5 motor strength present throughout Psych: COMMON NORMALS: cooperative Skin: NARRATIVE SKIN EXAM: Improving erythema right second toe, wound is largely granular and no purulent drainage. Stable appearing chronic wound right lateral forefoot no drainage or surrounding erythema. WOUNDS: Yes wounds noted NAILS: discolored, dystrophic and yellow and thickened Data 06/30/24 03:44 06/30/24 03:44 Micro: Microbiology 06/28/24 13:02 Gram Stain - Final Bone Anaerobic Culture - Preliminary Tissue Culture - Preliminary 06/28/24 12:36 Gram Stain - Final Neck Anaerobic Culture - Preliminary Abscess Culture - Preliminary A&P Assessment and plan (1) Diabetic peripheral neuropathy associated with type 2 diabetes mellitus: (2) Peripheral arterial disease: (3) Chronic osteomyelitis of metatarsal bone of right foot: (4) Acute osteomyelitis of toe of right foot: Plan 63-year-old uncontrolled diabetic male with acute osteomyelitis right second toe and chronic osteomyelitis right fifth metatarsal Dressing change this a.m. Betadine wet-to-dry Continuing empiric IV antibiotics Bone culture from right second toe taken intraoperatively 06/28/2024 pending, may narrow antibiotics once cultures yield further information, bone cultures pending from 06/28/2024 Patient may heel touch for transfers with postop shoe. Anticipate 6-week course of antibiotic therapy at discharge and referral to wound care clinic for follow-up after this hospitalization. Attestations Medical Necessity Statement*: Requires continued IV antibiotics for osteomyelitis right foot. Wound cultures pending Coding Level of Care Code Acute Code for [facility] Fwd Diagnoses Diabetic peripheral neuropathy associated with type 2 diabetes mellitus E11.42 Peripheral arterial disease I73.9 Chronic osteomyelitis of metatarsal bone of right foot M86.671 Acute osteomyelitis of toe of right foot M86.171
[2024-06-30] MEDS: pantoprazole 40 mg SDV IVP (08:38)
[2024-06-30] MEDS: aspirin 81 mg EC Tablet PO (08:39)
[2024-06-30] MEDS: clopidogrel 75 mg Tablet PO (08:39)
[2024-06-30] MEDS: HYDROcodone-acetaminophen 5-325 mg Tablet 1 TAB PO ×2 (09:45→19:26)
[2024-06-30] MEDS: sodium chloride 0.9% 1,000 ML 75 ML IV (09:47)
--- NOTE | 2024-06-30 11:12 | P.PN_ITS ---
Subjective 2 Subjective: Patient underwent revascularization of his lower extremity yesterday with outstanding results. This morning, he denies significant pain. Denies fevers or chills. We discussed podiatry recommendation for 6 weeks IV antibiotics to ensure infections are properly treated. He is in agreement. We discussed PICC line placement. Denies other new complaints. Medications: Reviewed: Yes Vitals/I&O/Wt Last Vital Signs Temp 98.2 F 06/30/24 08:00 Pulse 98 06/30/24 08:09 Resp 16 06/30/24 08:09 BP 156/77 06/30/24 08:00 Pulse Ox 94 06/30/24 08:09 O2 Del Method Room Air 06/30/24 08:09 06/29/24 06/30/24 06/30/24 22:59 06:59 14:59 Intake Total 1960 / 2139.067 800 / 2939.067 1580 / 1580 Output Total 1275 / 1725 600 / 2325 Balance 685 / 414.067 200 / 227.842 2255 / 1580 Weight last 48 hrs Weight 78.426 kg Weight 79.832 kg Physical Exam 2 Narrative: General: Patient is awake. Alert. Conversational. Head: Normocephalic. Atraumatic. EOM intact. Neck: Posterior neck wound is covered with bandage. Cardiovascular: RRR. No gallops. No murmurs. Lungs: Clear to auscultation, no use of accessory muscles, no crackles or wheezes. Skin: No jaundice. No rashes. Abdomen: Normal bowel sounds, abdomen soft and nontender. Extremities: No cyanosis or clubbing. Posterior neck wound covered. Musculoskeletal: No erythematous joints. Neurological: Moves all 4 extremities. No myoclonus. Data 06/30/24 03:44 06/30/24 03:44 Micro: Microbiology 06/28/24 13:02 Gram Stain - Final Bone Anaerobic Culture - Preliminary Tissue Culture - Preliminary 06/28/24 12:36 Gram Stain - Final Neck Anaerobic Culture - Preliminary Abscess Culture - Preliminary A&P Assessment and plan (1) Sepsis: Status post neck I&D for source control Status post podiatry surgery on right foot for source control Follow cultures Plan for 6 weeks IV antibiotics Continue broad-spectrum antibiotics with Zosyn/clindamycin/vancomycin PICC line requested Case management evaluating outpatient services (2) Peripheral arterial disease: Peripheral arterial disease of the lower extremities Status post revascularization on 06/29 Dual antiplatelet therapy Start statin (3) Osteomyelitis of foot: Osteomyelitis of right foot Podiatry following, appreciate recommendations Status post podiatry surgery by Dr. Weller on 06/28 Follow-up path Continue antibiotics as above Qualifiers: Laterality: right Osteomyelitis type: unspecified type Qualified Code(s): M86.9 - Osteomyelitis, unspecified (4) Abscess of neck: General surgery following, status post I&D 06/28 Wound care orders per Antibiotics as above (5) Diabetes: Type 2 diabetes mellitus, uncontrolled with hyperglycemia with A1c 10.8 Continue sliding scale insulin ACHS Will consider initiation of long-acting insulin depending glycemic control (6) Tobacco dependency: Patient benefit from tobacco cessation Okay with nicotine patch Plan DVT prophylaxis: Lovenox Attestations 2 Medical Necessity Statement*: Patient requires ongoing hospitalization for IV antibiotics, electrolyte management, following of cultures, PICC line placement, and supportive care. Coding Level of Care Code Acute Code for [facility] Diagnoses Sepsis A41.9 Peripheral arterial disease I73.9 Osteomyelitis of foot M86.9 Laterality: right Osteomyelitis type: unspecified type Abscess of neck L02.11 Diabetes E11.9 Tobacco dependency F17.200
[2024-06-30 11:44] LABS: Glucose Point of Care 311 mg/dL (70-110)
--- NOTE | 2024-06-30 11:47 | P.PN_ITS ---
<Statement entered by Jose Moise M.D - 06/30/24 20:44> Patient was evaluated and cared for in conjunction with an advanced practice practitioner. I personally examined the patient and reviewed the chart and all pertinent data including imaging, telemetry, and laboratory results. I discussed the patient in detail with the advanced practice practitioner. Please see their note for complete progress note, results and agreed upon plan of care for the patient. Patient feeling well. No access site abnormalities. GENERAL: Patient is alert and oriented HEART: Regular S1 and S2 LUNGS: Clear to auscultation bilaterally EXTREMITIES: Lower extremities with no edema Subjective 2 Subjective: He is status post balloon angioplasty of the right mid SFA. He has done well overnight from a vascular perspective. No pain in the right leg, no complications with left femoral cath site. This morning BUN 8, creatinine 0.9. Blood pressure well-controlled. Continue aspirin, Plavix, atorvastatin. Vitals/I&O/Wt Last Vital Signs Temp 98.2 F 06/30/24 08:00 Pulse 98 06/30/24 08:09 Resp 16 06/30/24 08:09 BP 156/77 06/30/24 08:00 Pulse Ox 94 06/30/24 08:09 O2 Del Method Room Air 06/30/24 08:09 06/29/24 06/30/24 06/30/24 22:59 06:59 14:59 Intake Total 1960 / 2939.067 800 / 2939.067 1713 / 1713 Output Total 1275 / 2325 600 / 2325 Balance 685 / 614.067 200 / 582.751 4388 / 1713 Weight last 48 hrs Weight 172 lb 14.4 oz Weight 176 lb Physical Exam 2 Const: COMMON NORMALS: no acute distress and patient oriented x3 GENERAL APPEARANCE: cooperative ORIENTATION/CONSCIOUSNESS: Yes awake, Yes oriented to person, Yes oriented to place and Yes oriented to time Chest: COMMONS NORMALS: normal inspection of the chest and normal palpation of entire chest wall CHEST: Yes Symmetrical chest wall rise Resp: COMMON NORMALS: normal respiratory effort, No retractions, No use of accessory muscles and clear to auscultation bilaterally AUSCULTATION: clear to auscultation bilaterally Cardio: COMMON NORMALS: regular rate, regular rhythm, S1 normal heart sound present, S2 normal heart sound present, No gallops present (Cardio), No clicks present (Cardio), No murmurs present (Cardio) and No rub (Cardio) RATE: r egular rate RHYTHM: regular rhythm HEART SOUNDS: S1 normal heart sound present and S2 normal heart sound present PERIPHERAL PULSES: radial pulses present positive right 2+ and femoral pulses present positive right 2+ Neuro: COMMON NORMALS: patient oriented x3 and moves all extremities S ENSORIUM/ORIENTATION: Yes oriented to person, Yes oriented to place and Yes oriented to time Skin: WOUNDS: Yes surgical site (no hematoma palpable) Details: no odor Data 06/30/24 03:44 06/30/24 03:44 Micro: Microbiology 06/28/24 13:02 Gram Stain - Final Bone Anaerobic Culture - Preliminary Tissue Culture - Preliminary 06/28/24 12:36 Gram Stain - Final Neck Anaerobic Culture - Preliminary Abscess Culture - Preliminary A&P Assessment and plan (1) Peripheral arterial disease: (2) Tobacco dependency: (3) Hypertension: Plan Status post balloon angioplasty of the right mid SFA. The right leg is pink and warm. No complications with left femoral cath site. Creatinine is stable. Attestations 2 Medical Necessity Statement*: Per hospitalist Coding Level of Care Code Acute Code for [facility] Diagnoses Peripheral arterial disease I73.9 Tobacco dependency F17.200 Hypertension I10
[2024-06-30] MEDS: insulin lispro 100 unit/1 mL SUBCUT ×3 (12:02→21:00)
--- NOTE | 2024-06-30 13:06 | XR_ITS ---
WS: [id number] Exam: XR chest 1V portable [id number] Date/Time of Exam: 06/30/2024 1:31 PM Reason For Exam: Post PICC insertion Comparison 01/02/2023. Right-sided PICC line has been placed and appears to end at the cavoatrial junction in good position. There is pulmonary vascular congestion which may indicate low-grade CHF. Heart size remains normal. No pleural effusions or pneumothorax. The mediastinum is normal in contour. Unremarkable bony structu res. XR/XR chest 1V portable [id number] IMPRESSION: 1. Right-sided PICC line ending at the expected region of the cavoatrial juncti on in satisfactory position. 2. Pulmonary vascular congestion. Low-grade CHF is not excluded. Fluid overload might be considered.
--- NOTE | 2024-06-30 13:57 | PICC.NOTE ---
Double lumen PICC placed to right basilic vein. Referred to vascular access nurse for PICC placement due to osteomyelitis and need for IV antibiotics x 6 weeks. Risks and benefits discussed and informed consent obtained from pt. Right arm assessed with right basilic vein measuring 4.6 mm, straight, and apparent best choice for placement. Using sterile technique and MST, right basilic vein accessed x 1 stick. Mid-arm circumference measured 10 cm from right AC 27 cm. Trimmed cath 40 cm with 2 cm external length noted. CXR shows tip in cavoatrial junction, in good position for use per radiologist. Line secured with stat-lock. Insertion site covered with Biopatch and TSM. Report given to bedside nurse, Jasbir RN.
[2024-06-30 15:48] LABS: Glucose Point of Care 187 mg/dL (70-110)
[2024-06-30] MEDS: ondansetron 2 mg/ML SDV 2 mL 4 MG IVP (16:57)
[2024-06-30 20:49] LABS: Glucose Point of Care 155 mg/dL (70-110)
[2024-06-30] MEDS: atorvastatin 40 mg Tablet PO (21:00)
[2024-06-30] MEDS: temazepam 15 mg Capsule PO (21:00)
[2024-06-30] MEDS: enoxaparin 40 mg/0.4 mL Syringe SUBCUT (21:00)
[2024-07-01] VITALS (11 sets, daily range): BP systolic 126–159; BP diastolic 71–92; PULSE 99–115; RESP 16–18; TEMP 36.4–37; O2SAT 92–95
[2024-07-01] MEDS: vancomycin 1,750 MG/350 ML PIGGYBACK 175 MG IV ×2 (00:19→14:45)
[2024-07-01] MEDS: piperacillin-tazobactam 3.375 GM in sodium chloride 0.9% (plus) 50 ML IV ×3 (03:52→18:03)
[2024-07-01 05:06] LABS: Basophils # 0.1 10^3/uL (0.0-0.1); Basophils % 0.4 %; Eosinophils # 0.4 10^3/uL (0.0-0.8); Eosinophils % 2.8 %; Hematocrit 42.2 % (37-53); Lymphocytes # 3.6 10^3/uL (0.8-4.8); Lymphocytes % 26.6 %; Mean Corpuscular HGB Conc 32.5 g/dL (30-55); Mean Corpuscular Hemoglobin 27.8 pg (27-33); Mean Corpuscular Volume 85.6 fl (82-101); Mean Platelet Volume 10.1 fL (7.4-10.4); Monocytes # 0.9 10^3/uL (0.2-0.9); Neutrophils # 8.36 10^3/uL (1.8-7.7); Neutrophils % 62.1 %; Nucleated Red Blood Cells % 0 %; Platelet Count 311 10^3/cmm (157-399); Red Blood Count 4.93 10^6/uL (3.85-5.65); Red Cell Distribution Width 13.2 % (12.1-15.1); White Blood Count 13.46 10^3/uL (3.29-11.43)
[2024-07-01 05:31] LABS: Anion Gap 13.9 (5-19); Blood Urea Nitrogen 8 mg/dL (8-23); Calcium 8.1 mg/dL (8.5-10.5); Carbon Dioxide 27 mmol/L (22-29); Chloride 99 mmol/L (98-107); Creatinine Clr Calc Pharmacy 85.4996; Glomerular Filtration Rate 85.5 mL/min (90-130); Glucose 236 mg/dL (65-115); Phosphorus 3.1 mg/dL (2.5-4.5); Potassium 3.9 mmol/L (3.5-5.1); Sodium 136 mmol/L (136-145)
[2024-07-01 06:46] LABS: Glucose Point of Care 159 mg/dL (70-110)
[2024-07-01] MEDS: pantoprazole DR 40 mg Tablet PO (08:10)
[2024-07-01] MEDS: clopidogrel 75 mg Tablet PO (08:10)
[2024-07-01] MEDS: aspirin 81 mg EC Tablet PO (08:10)
[2024-07-01] MEDS: insulin lispro 100 unit/1 mL SUBCUT ×4 (08:10→20:48)
[2024-07-01] MEDS: losartan 50 mg Tablet 25 MG PO (08:32)
--- NOTE | 2024-07-01 10:00 | P.PN_ITS ---
<Statement entered by Jose Moise M.D - 07/01/24 21:39> Patient was evaluated and cared for in conjunction with an advanced practice practitioner. I personally reviewed the chart and all pertinent data including imaging, telemetry, and laboratory results. I discussed the patient in detail with the advanced practice practitioner. Please see their note for complete progress note, results and agreed upon plan of care for the patient. Subjective 2 Subjective: He has not had any events overnight. The right foot is pink and warm, no pain reported. Left femoral cath site healing well without hematoma. BUN 8, creatinine 0.9. Blood pressure was elevated this morning, may need adjustment in his losartan dose. Continue aspirin, Plavix, atorvastatin. Vitals/I&O/Wt Last Vital Signs Temp 98.0 F 07/01/24 07:48 Pulse 103 H 07/01/24 08:17 Resp 18 07/01/24 08:17 BP 137/92 07/01/24 08:32 Pulse Ox 95 07/01/24 08:17 O2 Del Method Room Air 07/01/24 08:17 06/30/24 07/01/24 07/01/24 22:59 06:59 14:59 Intake Total 1030 / 3569 590 / 3569 170 / 170 Output Total 1275 / 3350 925 / 3350 Balance -245 / 219 -335 / 219 170 / 170 Weight last 48 hrs Weight 172 lb 1.6 oz Weight 172 lb 14.4 oz Physical Exam 2 Const: COMMON NORMALS: no acute distress and patient oriented x3 GENERAL APPEARANCE: cooperative ORIENTATION/CONSCIOUSNESS: Yes awake, Yes oriented to person, Yes oriented to place and Yes oriented to time Chest: COMMONS NORMALS: normal inspection of the chest and normal palpation of entire chest wall CHEST: Yes Symmetrical chest wall rise Resp: COMMON NORMALS: normal respiratory effort, No retractions, No use of accessory muscles and clear to auscultation bilaterally AUSCULTATION: clear to auscultation bilaterally Cardio: COMMON NORMALS: regular rate, regular rhythm, S1 normal heart sound present, S2 normal heart sound present, No gallops present (Cardio), No clicks present (Cardio), No murmurs present (Cardio) and No rub (Cardio) RATE: r egular rate RHYTHM: regular rhythm HEART SOUNDS: S1 normal heart sound present and S2 normal heart sound present PERIPHERAL PULSES: radial pulses present positive right 2+ and femoral pulses present positive right 2+ Neuro: COMMON NORMALS: patient oriented x3 and moves all extremities S ENSORIUM/ORIENTATION: Yes oriented to person, Yes oriented to place and Yes oriented to time Skin: WOUNDS: Yes surgical site (no hematoma palpable) Details: no odor Data 07/01/24 04:59 07/01/24 04:59 Micro: Microbiology 06/28/24 12:36 Gram Stain - Final Neck Anaerobic Culture - Preliminary Abscess Culture - Preliminary Coag positive Staphylococcus 06/28/24 13:02 Gram Stain - Final Bone Anaerobic Culture - Preliminary Tissue Culture - Preliminary A&P Assessment and plan (1) Peripheral arterial disease: (2) Tobacco dependency: (3) Hypertension: Plan Status post balloon angioplasty of the right mid SFA. The right foot is pink and warm. No complications with left femoral cath site. Creatinine is stable. Attestations 2 Medical Necessity Statement*: Per hospitalist, IV antibiotics Coding Level of Care Code Acute Code for [facility] Diagnoses Peripheral arterial disease I73.9 Tobacco dependency F17.200 Hypertension I10
--- NOTE | 2024-07-01 10:36 | PM.PN ---
Subjective Subjective: Patient reports pain well-controlled. Denies fevers or chills. Reports appetite is okay. Sister is bedside later in the day. Discussed plan of care and they are in agreement. Medications: Reviewed: Yes Vitals/I&O/Wt Last Vital Signs Temp 98.0 F 07/01/24 07:48 Pulse 103 H 07/01/24 08:17 Resp 18 07/01/24 08:17 BP 137/92 07/01/24 08:32 Pulse Ox 95 07/01/24 08:17 O2 Del Method Room Air 07/01/24 08:17 06/30/24 07/01/24 07/01/24 22:59 06:59 14:59 Intake Total 1030 / 2979 590 / 3569 170 / 170 Output Total 1275 / 2425 925 / 3350 Balance -245 / 554 -335 / 219 170 / 170 Weight last 48 hrs Weight 78.063 kg Weight 78.426 kg Physical Exam Narrative: General: Patient is awake. Alert. Conversational. Pleasant. Head: Normocephalic. Atraumatic. EOM intact. Neck: Posterior neck wound. Cardiovascular: RRR. No gallops. No murmurs. Lungs: Clear to auscultation, no use of accessory muscles, no crackles or wheezes. Skin: No jaundice. No rashes. Abdomen: Normal bowel sounds, abdomen soft and nontender. Extremities: No cyanosis or clubbing. Foot wrapped. Musculoskeletal: No erythematous joints. Neurological: Moves all 4 extremities. No myoclonus. Data 07/01/24 04:59 07/01/24 04:59 Micro: Microbiology 06/28/24 12:36 Gram Stain - Final Neck Anaerobic Culture - Preliminary Abscess Culture - Preliminary Coag positive Staphylococcus 06/28/24 13:02 Gram Stain - Final Bone Anaerobic Culture - Preliminary Tissue Culture - Preliminary A&P Assessment and plan (1) Sepsis: Status post neck I&D for source control Status post podiatry surgery on right foot for source control Follow cultures Plan for 6 weeks IV antibiotics Continue broad-spectrum antibiotics with Zosyn/clindamycin/vancomycin Hopefully can narrow antibiotics based upon culture results soon PICC line placed Case management setting up outpatient services (2) Peripheral arterial disease: Peripheral arterial disease of the lower extremities Status post revascularization on 06/29 Dual antiplatelet therapy Continue statin (3) Osteomyelitis of foot: Osteomyelitis of right foot Podiatry following, appreciate recommendations Status post podiatry surgery by Dr. Weller on 06/28 Follow-up path/cultures Continue antibiotics as above Qualifiers: Laterality: right Osteomyelitis type: unspecified type Qualified Code(s): M86.9 - Osteomyelitis, unspecified (4) Abscess of neck: General surgery following, status post I&D 06/28 Wound care orders per Antibiotics as above (5) Diabetes: Type 2 diabetes mellitus, uncontrolled with hyperglycemia with A1c 10.8 Continue sliding scale insulin ACHS Will consider initiation of long-acting insulin depending glycemic control (6) Tobacco dependency: Patient benefit from tobacco cessation Okay with nicotine patch (7) Hypertension: Start ARB Plan DVT prophylaxis: Lovenox Attestations Medical Necessity Statement*: Patient requires ongoing hospitalization for IV antibiotics, electrolyte management, following of cultures, and supportive care. Coding Level of Care Code Acute Code for [facility] Diagnoses Sepsis A41.9 Peripheral arterial disease I73.9 Osteomyelitis of foot M86.9 Laterality: right Osteomyelitis type: unspecified type Abscess of neck L02.11 Diabetes E11.9 Tobacco dependency F17.200 Hypertension I10
[2024-07-01 11:06] LABS: Glucose Point of Care 200 mg/dL (70-110)
[2024-07-01] MEDS: HYDROcodone-acetaminophen 5-325 mg Tablet 1 TAB PO (11:30)
[2024-07-01] MEDS: ondansetron 2 mg/ML SDV 2 mL 4 MG IVP (11:30)
--- NOTE | 2024-07-01 14:06 | PC.NURSE ---
Hand off report Pt transferred to [facility] with all belongings sent with him. Report called to BERTO Martinez. Notified nurse that pt vanco trough level is 17.0. Ok for pharmacist to go ahead and give the dose, however, [facility] is out of stock with vancomycin premix bag. called pharmacist. and notified [facility] to start vancomycin infusion there.
--- NOTE | 2024-07-01 14:10 | PC.NURSE ---
informed sister that pt got transferred back to [facility] room 254 bed 2.
[2024-07-01 16:24] LABS: Glucose Point of Care 157 mg/dL (70-110)
[2024-07-01] MEDS: enoxaparin 40 mg/0.4 mL Syringe SUBCUT (20:01)
[2024-07-01] MEDS: atorvastatin 40 mg Tablet PO (20:01)
[2024-07-01 20:49] LABS: Glucose Point of Care 213 mg/dL (70-110)
[2024-07-02] VITALS (8 sets, daily range): BP systolic 113–148; BP diastolic 71–79; PULSE 102–116; RESP 15–19; TEMP 36.6–37; O2SAT 93–96
[2024-07-02] MEDS: vancomycin 1,750 MG/350 ML PIGGYBACK 175 MG IV ×2 (00:41→12:29)
[2024-07-02] MEDS: piperacillin-tazobactam 3.375 GM in sodium chloride 0.9% (plus) 50 ML IV ×3 (02:45→18:13)
[2024-07-02 06:31] LABS: Glucose Point of Care 217 mg/dL (70-110)
[2024-07-02] MEDS: losartan 50 mg Tablet 25 MG PO (09:15)
[2024-07-02] MEDS: aspirin 81 mg EC Tablet PO (09:15)
[2024-07-02] MEDS: pantoprazole DR 40 mg Tablet PO (09:15)
--- NOTE | 2024-07-02 09:15 | P.PN_ITS ---
Subjective 2 Subjective: Evaluated this morning, doing okay. He is cultures show evidence of staph virus that is sensitive to vancomycin so at the moment he is covered. Dressing change done at the bedside. Vitals/I&O/Wt Last Vital Signs Temp 98 F 07/02/24 08:00 Pulse 109 H 07/02/24 08:00 Resp 19 H 07/02/24 08:00 BP 113/71 07/02/24 08:00 Pulse Ox 94 07/02/24 08:00 O2 Del Method Room Air 07/02/24 04:00 07/01/24 07/02/24 07/02/24 22:59 06:59 14:59 Intake Total 930 / 1100 2100 / 3200 Output Total 500 / 1100 Balance 930 / 500 1600 / 2100 Weight last 48 hrs Weight 167 lb 14.4 oz Weight 172 lb 1.6 oz Physical Exam 2 Neck/C-Spine: OTHER: Dressing was removed, there was minimal amount of seropurulent fluid when I press on the wound. The packing was replaced. Data 07/01/24 04:59 07/01/24 04:59 Micro: Microbiology 06/28/24 13:02 Gram Stain - Final Bone Anaerobic Culture - Preliminary Tissue Culture - Final 06/28/24 12:36 Gram Stain - Final Neck Anaerobic Culture - Preliminary Abscess Culture - Final Staphylococcus aureus A&P Assessment and plan (1) Abscess of neck: Plan Patient is progressing well, the wound in the neck is slowly healing, there was a little bit of purulence this morning that no retained abscess, there is no erythema surrounding the wound. Is improving. I will recommend twice a day dressing change while the patient is in the hospital and after that he can transition to once a day at home. Agree with antibiotic choice per medical team. Attestations 2 Medical Necessity Statement*: Per medical team Coding Level of Care Code Acute Code for [facility] Diagnoses Abscess of neck L02.11
[2024-07-02] MEDS: insulin lispro 100 unit/1 mL SUBCUT ×4 (09:16→21:20)
[2024-07-02] MEDS: nicotine 21 mg Patch 1 PATCH TRANSDERMA (09:16)
[2024-07-02] MEDS: clopidogrel 75 mg Tablet PO (09:17)
[2024-07-02] MEDS: HYDROcodone-acetaminophen 5-325 mg Tablet 1 TAB PO ×2 (09:18→20:01)
--- NOTE | 2024-07-02 09:59 | P.PN_ITS ---
Subjective 2 Subjective: Patient denies any pain. Denies fevers, chills, nausea or emesis. We discussed were awaiting culture results to help guide treatment. Planning on infectious disease consultation on Thursday. Patient is in agreement. Denies other new complaints. Medications: Reviewed: Yes Vitals/I&O/Wt Last Vital Signs Temp 98 F 07/02/24 08:00 Pulse 109 H 07/02/24 08:00 Resp 19 H 07/02/24 08:00 BP 113/71 07/02/24 09:15 Pulse Ox 94 07/02/24 08:00 O2 Del Method Room Air 07/02/24 04:00 07/01/24 07/02/24 07/02/24 22:59 06:59 14:59 Intake Total 930 / 1100 2100 / 3200 Output Total 500 / 1100 Balance 930 / 500 1600 / 2100 Weight last 48 hrs Weight 76.158 kg Weight 78.063 kg Physical Exam 2 Narrative: General: Patient is awake. Appears fatigued but pleasant and appropriate on exam. Head: Normocephalic. Atraumatic. EOM intact. Neck: Posterior neck wound is covered with bandage.. Cardiovascular: RRR. No gallops. No murmurs. Lungs: Clear to auscultation, no use of accessory muscles, no crackles or wheezes. Skin: No jaundice. No rashes. Abdomen: Normal bowel sounds, abdomen soft and nontender. Extremities: No cyanosis or clubbing. Foot wrapped. Musculoskeletal: No erythematous joints. Neurological: Moves all 4 extremities. No myoclonus. Data 07/01/24 04:59 07/01/24 04:59 Micro: Microbiology 06/28/24 13:02 Gram Stain - Final Bone Anaerobic Culture - Preliminary Tissue Culture - Final 06/28/24 12:36 Gram Stain - Final Neck Anaerobic Culture - Preliminary Abscess Culture - Final Staphylococcus aureus A&P Assessment and plan (1) Sepsis: Status post neck I&D for source control Status post podiatry surgery on right foot for source control Follow cultures Continue broad-spectrum antibiotics with Zosyn/clindamycin/vancomycin Hopefully can narrow antibiotics based upon culture results soon PICC line placed Plan for infectious disease consult Thursday (2) Peripheral arterial disease: Peripheral arterial disease of the lower extremities Status post revascularization on 06/29 Continue dual antiplatelet and statin therapy (3) Osteomyelitis of foot: Osteomyelitis of right foot Podiatry following, appreciate recommendations Status post podiatry surgery by Dr. Weller on 06/28 Follow-up path/cultures Continue antibiotics as above Qualifiers: Laterality: right Osteomyelitis type: unspecified type Qualified Code(s): M86.9 - Osteomyelitis, unspecified (4) Abscess of neck: General surgery following, status post I&D 06/28 Wound care orders per Antibiotics as above (5) Diabetes: Type 2 diabetes mellitus, uncontrolled with hyperglycemia with A1c 10.8 Continue sliding scale insulin ACHS Start low-dose Lantus (6) Tobacco dependency: Patient would benefit from tobacco cessation Okay with nicotine patch (7) Hypertension: Continue ARB Plan DVT prophylaxis: Lovenox Attestations 2 Medical Necessity Statement*: Patient requires ongoing hospitalization for IV antibiotics, electrolyte management, following of cultures, and supportive care. Coding Level of Care Code Acute Code for [facility] Diagnoses Sepsis A41.9 Peripheral arterial disease I73.9 Osteomyelitis of foot M86.9 Laterality: right Osteomyelitis type: unspecified type Abscess of neck L02.11 Diabetes E11.9 Tobacco dependency F17.200 Hypertension I10
[2024-07-02 11:14] LABS: Glucose Point of Care 223 mg/dL (70-110)
[2024-07-02 16:45] LABS: Glucose Point of Care 222 mg/dL (70-110)
[2024-07-02] MEDS: atorvastatin 40 mg Tablet PO (20:01)
[2024-07-02] MEDS: sennosides 8.6 mg Tablet 17.2 MG PO (20:01)
[2024-07-02] MEDS: enoxaparin 40 mg/0.4 mL Syringe SUBCUT (20:04)
[2024-07-02 20:42] LABS: Glucose Point of Care 276 mg/dL (70-110)
[2024-07-02] MEDS: insulin glargine 100 units/1 mL 8 UNIT SUBCUT (21:20)
[2024-07-03] VITALS (11 sets, daily range): BP systolic 109–154; BP diastolic 60–86; PULSE 92–109; RESP 15–18; TEMP 36.6–36.8; O2SAT 93–95
[2024-07-03 00:40] LABS: Vancomycin Trough 20.5 ug/mL (10-15)
[2024-07-03] MEDS: vancomycin 1,500 MG/300 ML PIGGYBACK 200 MG IV (01:19)
[2024-07-03] MEDS: HYDROcodone-acetaminophen 5-325 mg Tablet 1 TAB PO ×3 (02:36→20:04)
[2024-07-03] MEDS: piperacillin-tazobactam 3.375 GM in sodium chloride 0.9% (plus) 50 ML IV ×3 (02:37→18:24)
[2024-07-03 03:34] LABS: Basophils # 0.1 10^3/uL (0.0-0.1); Basophils % 0.5 %; Eosinophils # 0.5 10^3/uL (0.0-0.8); Eosinophils % 3.4 %; Hematocrit 44.1 % (37-53); Lymphocytes # 4.6 10^3/uL (0.8-4.8); Lymphocytes % 29.8 %; Mean Corpuscular HGB Conc 32.2 g/dL (30-55); Mean Corpuscular Volume 86.8 fl (82-101); Mean Platelet Volume 10.5 fL (7.4-10.4); Monocytes # 1.2 10^3/uL (0.2-0.9); Monocytes % 7.5 %; Neutrophils # 8.79 10^3/uL (1.8-7.7); Neutrophils % 57.2 %; Nucleated Red Blood Cells % 0 %; Platelet Count 314 10^3/cmm (157-399); Red Blood Count 5.08 10^6/uL (3.85-5.65); Red Cell Distribution Width 13.4 % (12.1-15.1); White Blood Count 15.38 10^3/uL (3.29-11.43)
[2024-07-03 03:57] LABS: Magnesium 2.1 mg/dL (1.7-2.3); Phosphorus 3.5 mg/dL (2.5-4.5)
[2024-07-03 06:34] LABS: Glucose Point of Care 184 mg/dL (70-110)
[2024-07-03] MEDS: losartan 50 mg Tablet 25 MG PO (08:40)
[2024-07-03] MEDS: clopidogrel 75 mg Tablet PO (08:40)
[2024-07-03] MEDS: pantoprazole DR 40 mg Tablet PO (08:41)
[2024-07-03] MEDS: aspirin 81 mg EC Tablet PO (08:41)
[2024-07-03] MEDS: insulin lispro 100 unit/1 mL SUBCUT ×4 (08:42→21:09)
--- NOTE | 2024-07-03 11:07 | P.PN_ITS ---
Subjective 2 Subjective: Patient denies any new complaints. Endorses persistent neck discomfort, rates as mild. Discussed his culture results revealing MSSA. Reviewed plan for IV antibiotics this week. Anticipating ID consult tomorrow. After antibiotic plan is determined, will need approval from [place]. Medications: Reviewed: Yes Vitals/I&O/Wt Last Vital Signs Temp 97.8 F 07/03/24 08:00 Pulse 96 07/03/24 08:00 Resp 17 07/03/24 08:00 BP 125/77 07/03/24 08:40 Pulse Ox 95 07/03/24 08:00 O2 Del Method Room Air 07/03/24 08:00 07/02/24 07/03/24 07/03/24 22:59 06:59 14:59 Intake Total 580 / 1650 350 / 2000 360 / 360 Output Total 450 / 800 625 / 1425 700 / 700 Balance 130 / 850 -275 / 575 -340 / -340 Weight last 48 hrs Weight 77.111 kg Weight 76.158 kg Physical Exam 2 Narrative: General: Patient is awake. Pleasant. Head: Normocephalic. Atraumatic. EOM intact. Neck: Posterior neck wound is covered with bandage. Cardiovascular: RRR. No gallops. No murmurs. Lungs: Clear to auscultation, no use of accessory muscles, no crackles or wheezes. Skin: No jaundice. No rashes. Abdomen: Normal bowel sounds, abdomen soft and nontender. Extremities: No cyanosis or clubbing. Foot remains wrapped. Musculoskeletal: No erythematous joints. Neurological: Moves all 4 extremities. No myoclonus. Data 07/03/24 02:32 07/01/24 04:59 Micro: Microbiology 06/27/24 20:46 Blood Culture - Final Blood NO GROWTH AFTER 5 DAYS 06/27/24 20:42 Blood Culture - Final Blood NO GROWTH AFTER 5 DAYS 06/28/24 13:02 Gram Stain - Final Bone Anaerobic Culture - Preliminary Tissue Culture - Final 06/28/24 12:36 Gram Stain - Final Neck Anaerobic Culture - Preliminary Abscess Culture - Final Staphylococcus aureus A&P Assessment and plan (1) Sepsis: Status post neck I&D for source control; Wx w/ MSSA Status post podiatry surgery on right foot for source control; Wx NGTD Continue broad-spectrum antibiotics with Zosyn/clindamycin; d/c vancomycin Hope to narrow antibiotics based upon culture results soon Status post PICC line Plan for infectious disease consult Thursday, will need [place] approval afterwards; CM aware (2) Peripheral arterial disease: Peripheral arterial disease of the lower extremities Status post revascularization on 06/29 Continue dual antiplatelet and statin therapy (3) Osteomyelitis of foot: Osteomyelitis of right foot Podiatry following, appreciate recommendations Status post podiatry surgery by Dr. Weller on 06/28 Follow-up path/cultures Continue antibiotics as above Qualifiers: Laterality: right Osteomyelitis type: unspecified type Qualified Code(s): M86.9 - Osteomyelitis, unspecified (4) Abscess of neck: General surgery following, status post I&D 06/28 Wound care orders per Antibiotics as above (5) Diabetes: Type 2 diabetes mellitus, uncontrolled with hyperglycemia with A1c 10.8 Continue Lantus Continue sliding scale insulin ACHS (6) Tobacco dependency: Patient would benefit from tobacco cessation Continue nicotine patch (7) Hypertension: Continue ARB Plan DVT prophylaxis: Lovenox Attestations 2 Medical Necessity Statement*: Patient requires ongoing hospitalization for IV antibiotics, following of cultures, and supportive care. Coding Level of Care Code Acute Code for [facility] Diagnoses Sepsis A41.9 Peripheral arterial disease I73.9 Osteomyelitis of foot M86.9 Laterality: right Osteomyelitis type: unspecified type Abscess of neck L02.11 Diabetes E11.9 Tobacco dependency F17.200 Hypertension I10
[2024-07-03 12:21] LABS: Glucose Point of Care 210 mg/dL (70-110)
[2024-07-03 16:44] LABS: Glucose Point of Care 145 mg/dL (70-110)
[2024-07-03] MEDS: sennosides 8.6 mg Tablet 17.2 MG PO (20:04)
[2024-07-03] MEDS: atorvastatin 40 mg Tablet PO (20:04)
[2024-07-03] MEDS: enoxaparin 40 mg/0.4 mL Syringe SUBCUT (20:05)
[2024-07-03 20:53] LABS: Glucose Point of Care 228 mg/dL (70-110)
[2024-07-03] MEDS: insulin glargine 100 units/1 mL 8 UNIT SUBCUT (21:08)
[2024-07-04] VITALS (11 sets, daily range): BP systolic 124–150; BP diastolic 73–84; PULSE 100–110; RESP 16–19; TEMP 36.6–36.9; O2SAT 92–97
[2024-07-04] MEDS: piperacillin-tazobactam 3.375 GM in sodium chloride 0.9% (plus) 50 ML IV ×2 (01:59→10:53)
[2024-07-04 04:49] LABS: Basophils # 0.1 10^3/uL (0.0-0.1); Basophils % 0.5 %; Eosinophils # 0.5 10^3/uL (0.0-0.8); Eosinophils % 3.2 %; Hematocrit 47.1 % (37-53); Lymphocytes # 3.3 10^3/uL (0.8-4.8); Lymphocytes % 20.8 %; Mean Corpuscular HGB Conc 31.6 g/dL (30-55); Mean Corpuscular Hemoglobin 27.7 pg (27-33); Mean Corpuscular Volume 87.5 fl (82-101); Mean Platelet Volume 10.4 fL (7.4-10.4); Monocytes % 6.5 %; Neutrophils # 10.71 10^3/uL (1.8-7.7); Neutrophils % 67.7 %; Nucleated Red Blood Cells % 0 %; Platelet Count 329 10^3/cmm (157-399); Red Blood Count 5.38 10^6/uL (3.85-5.65); Red Cell Distribution Width 13.6 % (12.1-15.1)
[2024-07-04 04:59] LABS: Albumin Level 3.5 g/dL (3.5-5.2); Anion Gap 15.8 (5-19); Blood Urea Nitrogen 19 mg/dL (8-23); Calcium 8.7 mg/dL (8.5-10.5); Carbon Dioxide 25 mmol/L (22-29); Chloride 99 mmol/L (98-107); Creatinine Clr Calc Pharmacy 153.0343; Glomerular Filtration Rate 168.5 mL/min (90-130); Glucose 128 mg/dL (65-115); Magnesium 2.1 mg/dL (1.7-2.3); Phosphorus 3.5 mg/dL (2.5-4.5); Potassium 3.8 mmol/L (3.5-5.1); Sodium 136 mmol/L (136-145)
[2024-07-04 06:33] LABS: Glucose Point of Care 177 mg/dL (70-110)
[2024-07-04] MEDS: losartan 50 mg Tablet 25 MG PO (08:43)
[2024-07-04] MEDS: insulin lispro 100 unit/1 mL SUBCUT ×3 (08:43→20:56)
[2024-07-04] MEDS: aspirin 81 mg EC Tablet PO (08:43)
[2024-07-04] MEDS: nicotine 21 mg Patch 1 PATCH TRANSDERMA (08:43)
[2024-07-04] MEDS: clopidogrel 75 mg Tablet PO (08:44)
[2024-07-04] MEDS: pantoprazole DR 40 mg Tablet PO (08:44)
[2024-07-04] MEDS: HYDROcodone-acetaminophen 5-325 mg Tablet 1 TAB PO ×3 (08:56→23:33)
[2024-07-04 11:58] LABS: Glucose Point of Care 136 mg/dL (70-110)
--- NOTE | 2024-07-04 16:01 | P.CONIM_ITS ---
Providers/Reason For Consult 2 Consulting Physician/Specialty*: Sparkle Childers MD Reason for Consult*: Osteomyelitis Requesting Physician: Kyle Hawthorne MD Attending Physician: Bola Marcus MD Primary Care Provider: Dustin Machado DO History of Present Illness History of Present Illness Tom Lyons is a 63 year old male with history of diabetes. He was recently seen in the emergency room on June 16, 2024 when he had presented with an abscess on the right side of his posterior neck. He underwent I&D in the emergency room. Approximately 1 cc of thick pus was expressed at the time and loculations were broken up. Dressing was placed patient was given Bactrim and discharged home. He did not take the Bactrim at home as he states he could not afford the medication. He presented to the hospital again on June 27, 2024 and was diagnosed with a neck abscess 37 x 12 x 37 mm. On this day he was also noted to have swelling and cellulitis of the right foot, fifth metatarsal head osseous erosion consistent with osteomyelitis, second distal phalanx fracture. He was evaluated by general surgery and podiatry services. Patient reported a chronic wound on the lateral forefoot which has been present for about a year. He has a history of osteomyelitis to the right fifth metatarsal head. He has known peripheral neuropathy and has had a partial great toe amputation in 2023. Currently he had a new wound at the distal right second toe which identified acute osteomyelitis on imaging. He had diminished pedal pulses with concern for peripheral arterial disease. The osteomyelitis was most likely chronic and less likely to be contributing to the active leukocytosis. On June 28, 2024 he underwent incision and drainage of the right-sided 3 x 1 cm posterior neck abscess. About 4 cc of purulent material was drained. On the same day he also underwent incision and debridement down to the bone of the right foot second toe and right fifth metatarsal. Bone cultures were taken. He was also evaluated by cardiology for severe peripheral artery disease. CTA showed critical limb ischemia of the right SFA. He underwent a peripheral angiogram which showed a 99% mid SFA stenosis status post successful revascularization with balloon angioplasty. Anterior tibial artery was found to be completely excluded. He had good two-vessel runoff to the posterior tibial and peroneal arteries. He had a PICC line placed this past Thursday (today is Thursday) to enable 6 weeks of IV antibiotics. Infectious disease service is consulted today for antibiotic recommendations. Diabetes mellitus is uncontrolled with hyperglycemia A1c of 10.8. He has been afebrile. Leukocytosis has been ranging between 14-15 this current admission. In trending patient's past numbers, it appears he has some degree of chronic leukocytosis with WBC count ranging between 12-17 in the past. CRP upon admission was at 12.7. ESR at 96 Review of Systems 2 General: Reports: 10 or more systems reviewed and unremarkable except in HPI and below Const: Denies: fever(s), chills or body aches Eyes: Denies: change in vision, blurry vision or photophobia ENMT: Reports: hoarseness; Denies: throat pain, enlarged tonsils, odynophagia or nasal congestion Card: Denies: chest pain, palpitations, irregular heart rhythm, edema, swelling of feet/ankles, lightheadedness, pre-syncope, dyspnea on exertion or orthopnea Resp: Denies: dyspnea, productive cough, non-productive cough, wheezing, stridor, pain on inspiration, change in phlegm color, hemoptysis or chest congestion GI: Denies: abdominal pain, nausea, vomiting, hematemesis, coffee ground emesis, dysphagia, heartburn, diarrhea, constipation, GI cramping, change in stool character, hematochezia or melena : Denies: flank pain, dysuria, urinary frequency, urinary urgency, urinary hesitancy or hematuria Musc: Denies: neck pain, back pain, extremity pain, joint swelling, joint warmth or deformity Neuro: Denies: headache(s), numbness in extremities, weakness in extremities, sensory changes, difficulty walking, frequent falls, dizziness, vertigo, behavioral changes, Slurred speech present or seizure-like activity Psych: Denies: anxiety, depression, suicidal ideation or homicidal ideation Endo: Denies: polyuria, polydipsia, tired all the time, cold intolerance or hot flashes Stewart/Lymph: Denies: easy bruising or easy bleeding Medications/Allergies Home Medications Medication Instructions Recorded Confirmed Last Taken Type empagliflozin 25 mg tablet 25 mg PO DAILY 06/28/24 06/28/24 Unknown History (Jardiance) glipizide 10 mg tablet 10 mg PO TID 06/28/24 06/28/24 Unknown History metformin 500 mg tablet,extended 500 mg PO BID 06/28/24 06/28/24 Unknown History release 24hr (osmotic) Allergies Allergy/AdvReac Type Severity Reaction Status Date / Time No Known Allergies Allergy Verified 06/16/24 03:50 Current Medications Generic Name Dose Route Start Last Admin Trade Name Freq PRN Reason Stop Dose Admin Hydrocodone Bitart/Acetaminophen 1 tab 06/28/24 00:15 07/04/24 08:56 Hydrocodone-Acetaminophen 5-325 Mg Tablet PO 1 tab Q6H PRN Administration pain Aspirin 81 mg 06/30/24 09:00 07/04/24 08:43 Aspirin 81 Mg Ec Tablet PO 81 mg DAILY KATHERINE Administration Atorvastatin Calcium 40 mg 06/30/24 21:00 07/03/24 20:04 Atorvastatin 40 Mg Tablet PO 40 mg BEDTIME KATHERINE Administration Clopidogrel Bisulfate 75 mg 06/30/24 09:00 07/04/24 08:44 Clopidogrel 75 Mg Tablet PO 75 mg DAILY KATHERINE Administration Enoxaparin Sodium 40 mg 06/30/24 21:00 07/03/24 20:05 Enoxaparin 40 Mg/0.4 Ml Syringe SUBCUT 40 mg BEDTIME KATHERINE Administration Piperacillin Sod/Tazobactam 50 mls @ 12.5 mls/hr 06/28/24 03:00 07/04/24 13:11 Sod 3.375 gm/ Sodium Chloride IV Infused Q8H KATHERINE Infusion Insulin Glargine 8 unit 07/02/24 21:00 07/03/24 21:08 Insulin Glargine 100 Units/1 Ml SUBCUT 8 unit BEDTIME KATHERINE Administration Insulin Human Lispro 0 unit 06/30/24 12:00 07/04/24 12:17 Insulin Lispro 100 Unit/1 Ml SUBCUT Not Given WM&BEDTIME KATHERINE Protocol Losartan Potassium 25 mg 07/01/24 09:00 07/04/24 08:43 Losartan 50 Mg Tablet PO 25 mg DAILY KATHERINE Administration Nicotine 1 patch 06/28/24 15:57 07/04/24 08:43 Nicotine 21 Mg Patch TRANSDERMA 1 patch DAILY KATHERINE Administration Ondansetron HCl 4 mg 06/28/24 00:15 07/01/24 11:30 Ondansetron 2 Mg/Ml Sdv 2 Ml IVP 4 mg Q6H PRN Administration NAUSEA AND VOMITING Pantoprazole Sodium 40 mg 07/01/24 09:00 07/04/24 08:[address] 40 Mg Tablet PO 40 mg DAILY KATHERINE Administration Senna 17.2 mg 07/02/24 21:00 07/03/24 20:04 Sennosides 8.6 Mg Tablet PO 17.2 mg BEDTIME KATHERINE Administration PFSH Acute 2 PFSH: Medical History Elevated blood pressure reading in office with diagnosis of hypertension Atherosclerosis of coronary artery of [place] heart without angina pectoris Left carotid stenosis Left acute arterial ischemic stroke, MCA (middle cerebral artery) CVA (cerebral vascular accident) Polycythemia Acute confusion Hypertension Diabetes Surgical History History of testicular surgery Family History Denies family history of Hyperlipidemia Psychiatric illness Lung disease Hypertension Social History Smoking and tobacco/nicotine status: current every day tobacco/nicotine user Alcohol intake: never Substance/Drug Use: never Lives independently: Yes Housing: House Vitals/I&O/Wt Last Vital Signs Temp 98.0 F 07/04/24 12:00 Pulse 100 07/04/24 12:00 Resp 18 07/04/24 12:00 BP 147/84 07/04/24 12:00 Pulse Ox 97 07/04/24 12:00 O2 Del Method Room Air 07/04/24 12:00 07/04/24 07/04/24 07/04/24 06:59 14:59 22:59 Intake Total 50 / 1110 770 / 770 Output Total 950 / 2100 Balance -900 / -990 770 / 770 Weight last 48 hrs Weight 77.428 kg Weight 77.111 kg Physical Exam 2 Narrative: General: No acute distress, AO x3 HEENT: PERRLA, pupils bilaterally equal and reactive, pallors not present Chest: Normal vesicular breath sounds, no added sounds, equal good air entry bilaterally CVS: S1-S2 regular, no murmurs, no tachycardia, no gallops, no rubs Abdomen: Soft, nontender, no organomegaly, bowel sounds present Neuro: No focal deficits, no facial deformity, AO x3, power 5/5 in all limbs Data 07/04/24 03:19 07/04/24 03:19 Other Labs: Radiology Impressions Foot CT 06/27/24 20:22 IMPRESSION: 1. Soft tissue thickening and osseous erosion of the 5th metatarsal head suspicious for chronic or acute on chronic osteomyelitis. 2. Additional soft tissue thickening/wound and underlying erosion and mildly comminuted fracture of the 2nd distal phalanx , also suspicious for osteomyelitis and pathologic fracture. Neck CT 06/27/24 20:22 IMPRESSION: 1. 37 x 12 x 37 mm fluid collection in the right upper posterior paramidline neck subcutaneous fat concerning for an abscess with associated surrounding edema and soft tissue thickening consistent with cellulitis. 2. Paranasal sinus opacification. 3. Degenerative disc space disease throughout the spine. 4. Carotid artery atherosclerotic calcifications. Lower Extremity CTA 06/28/24 00:16 IMPRESSION: 1. Moderate-severe atherosclerotic changes with contrast fading out in the bilateral distal anterior tibial arteries. No flow appreciated in the bilateral dorsalis pedis arteries. 2. Soft tissue defect along the plantar lateral aspect of the right 5th metatarsal head with diffuse surrounding soft tissue thickening likely representing a cellulitis. 3. Bony deformity/erosive changes along the head of the right 5th metatarsal which is likely secondary to osteomyelitis of unknown chronicity. ADDENDUM: 06/28/24 0240 THIS REPORT CONTAINS FINDINGS THAT MAY BE CRITICAL TO PATIENT CARE. The findings were verbally communicated via telephone conference with ABDON CHATTERJEE at 2:37 AM GAMING [employer]ER on 06/28/2024. The findings were acknowledged and understood. Foot X-Ray 06/28/24 06:32 IMPRESSION: 1. Destructive bone changes of the distal fifth metatarsal with soft tissue ulceration. Also osseous destruction of the distal end of the distal second phalanx with soft tissue edema. Acute osteomyelitis cannot be ruled out. Chest X-Ray 06/30/24 13:06 IMPRESSION: 1. Right-sided PICC line ending at the expected region of the cavoatrial junction in satisfactory position. 2. Pulmonary vascular congestion. Low-grade CHF is not excluded. Fluid overload might be considered. Laboratory Results WBC 15.80 10^3/uL (3.29-11.43) H 07/04/24 03:19 RBC 5.38 10^6/uL (3.85-5.65) 07/04/24 03:19 Hgb 14.90 g/dL (11.27-16.99) 07/04/24 03:19 Hct 47.1 % (37-53) 07/04/24 03:19 MCV 87.5 fl (82-101) 07/04/24 03:19 MCH 27.7 pg (27-33) 07/04/24 03:19 MCHC 31.6 g/dL (30-55) 07/04/24 03:19 RDW 13.6 % (12.1-15.1) 07/04/24 03:19 Plt Count 329 10^3/cmm (157-399) 07/04/24 03:19 MPV 10.4 fL (7.4-10.4) 07/04/24 03:19 Neut % (Auto) 67.7 % 07/04/24 03:19 Lymph % (Auto) 20.8 % 07/04/24 03:19 Jewell % (Auto) 6.5 % 07/04/24 03:19 Eos % (Auto) 3.2 % 07/04/24 03:19 Baso % (Auto) 0.5 % 07/04/24 03:19 Neut # (Auto) 10.71 10^3/uL (1.8-7.7) H 07/04/24 03:19 Lymph # (Auto) 3.3 10^3/uL (0.8-4.8) 07/04/24 03:19 Jewell # (Auto) 1.0 10^3/uL (0.2-0.9) H 07/04/24 03:19 Eos # (Auto) 0.5 10^3/uL (0.0-0.8) 07/04/24 03:19 Baso # (Auto) 0.1 10^3/uL (0.0-0.1) 07/04/24 03:19 Nucleated RBC % (auto) 0 % 07/04/24 03:19 Nucleated RBCs # 0.0 /100WBC 07/04/24 03:19 ESR 96 mm/hr (0-10) H 06/27/24 20:42 APTT 33.7 SECONDS (23.9-36.7) D 06/29/24 17:00 Sodium 136 mmol/L (136-145) 07/04/24 03:19 Potassium 3.8 mmol/L (3.5-5.1) 07/04/24 03:19 Chloride 99 mmol/L (98-107) 07/04/24 03:19 Carbon Dioxide 25 mmol/L (22-29) 07/04/24 03:19 Anion Gap 15.8 (5-19) 07/04/24 03:19 BUN 19 mg/dL (8-23) 07/04/24 03:19 Creatinine 0.5 mg/dL (0.7-1.2) L 07/04/24 03:19 GFR Calculation 168.5 mL/min (90-130) H 07/04/24 03:19 Glucose 128 mg/dL (65-115) H 07/04/24 03:19 POC Glucose 136 mg/dL (70-110) H 07/04/24 11:21 Estimat Average Glucose 263 06/28/24 08:30 Hemoglobin A1c 10.8 % (4.0-6.0) H 06/28/24 08:30 Calculated Osmolality 287 mOsm/kg (285-295) 06/30/24 03:44 Lactic Acid 1.3 mmol/L (0.5-2.2) 06/28/24 00:25 Calcium 8.7 mg/dL (8.5-10.5) 07/04/24 03:19 Phosphorus 3.5 mg/dL (2.5-4.5) 07/04/24 03:19 Magnesium 2.1 mg/dL (1.7-2.3) 07/04/24 03:19 Total Bilirubin 0.2 mg/dL (0.15-1.2) 06/27/24 20:42 AST 16 U/L (0-40) 06/27/24 20:42 ALT 16 U/L (0-41) 06/27/24 20:42 Alkaline Phosphatase 110 U/L (40-130) 06/27/24 20:42 C-Reactive Protein 12.7 mg/L (0.0-4.9) H 06/28/24 08:30 Total Protein 8.3 g/dL (6.6-8.7) 06/27/24 20:42 Albumin 3.5 g/dL (3.5-5.2) 07/04/24 03:19 Globulin 4.8 g/dL (1.3-4.6) H 06/27/24 20:42 Procalcitonin 0.07 ng/mL (0-0.5) 06/27/24 20:42 Vancomycin Trough 20.5 ug/mL (10-15) H 07/02/24 23:56 Micro: Microbiology 06/28/24 12:36 Gram Stain - Final Neck Anaerobic Culture - Preliminary Abscess Culture - Final Staphylococcus aureus 06/28/24 13:02 Gram Stain - Final Bone Anaerobic Culture - Preliminary Tissue Culture - Final NAME: Jasbir Lyonsazul Shah LOC: [facility] #: [id number] AGE/SX: 63/M ROOM: 254 R E06/27/[address]: Bola Marcus MD : 1960 BED: 2 D IS: FAX #: STATUS: ADM IN TLOC: Spec #: [id number] Ciara: 06/28/24-1302 Status: RES Req #: [id number] Recd: 06/28/24-[address]: Karl Weller DPM Src: Bone SpDesc: Ordered: Tissue Cult GS, Anaer Comments: Comment distal phalanx right 2nd toe Procedure Result Verified Site Gram Stain Final 06/29/24-1052 No Organisms Seen No Organism Seen Anaerobic Culture Preliminary 07/04/24-0916 NO ANAEROBES ISOLATED ON DAY 6 Anaerobic Culture Preliminary (changed) 07/03/24-1710 NO ANAEROBES ISOLATED ON DAY 5 Anaerobic Culture Preliminary (changed) 07/02/24-172 NO ANAEROBES ISOLATED ON DAY 4 Anaerobic Culture Preliminary (changed) 07/01/24-1758 NO ANAEROBES ISOLATED ON DAY 3 Anaerobic Culture Preliminary (changed) 06/30/24-1830 NO ANAEROBES ISOLATED ON DAY 2 Anaerobic Culture Preliminary (changed) 06/29/24-1702 NO ANAEROBES ISOLATED ON DAY 1 Tissue Culture Final 07/01/24-1110 RARE NORMAL SKIN KAREY PRESENT ON DAY 3 Tissue Culture Preliminary (changed) 06/30/24-1705 RARE NORMAL SKIN KAREY PRESENT ON DAY 2 Tissue Culture Preliminary (changed) 06/29/24-1448 RARE NORMAL SKIN KAREY PRESENT ON DAY 1 NAME: Tom Lyons LOC: [facility] #: [id number] AGE/SX: 63/M ROOM: 254 R E06/27/[address]: Bola Marcus MD : 1960 BED: 2 D IS: FAX #: STATUS: ADM IN TLOC: Spec #: [id number] Ciara: 06/28/24-1236 Status: RES Req #: [id number] Recd: 06/28/24-[address]: Louie Serrato Src: Neck SpDesc: Ordered: Absces Cult&GS, Anaer Comments: Comment neck abscess Procedure Result Verified Site Gram Stain Final 06/29/24-105 Gram Positive Cocci Rare in pairs and clusters Anaerobic Culture Preliminary 07/04/24-09 NO ANAEROBES ISOLATED ON DAY 6 Anaerobic Culture Preliminary (changed) 07/03/24-1721 NO ANAEROBES ISOLATED ON DAY 5 Anaerobic Culture Preliminary (changed) 07/02/24-1716 NO ANAEROBES ISOLATED ON DAY 4 Anaerobic Culture Preliminary (changed) 07/01/24-175 NO ANAEROBES ISOLATED ON DAY 3 Anaerobic Culture Preliminary (changed) 06/30/24-1830 NO ANAEROBES ISOLATED ON DAY 2 Anaerobic Culture Preliminary (changed) 06/29/24-170 NO ANAEROBES ISOLATED ON DAY 1 Abscess Culture Final 07/01/24-1616 Organism 1 Staphylococcus aureus Growth HEAVY DAY 3 CRITICAL RESULT YES/NO: YES CRITICAL CALLED BY: TAMIA REDMAN AND READ BACK BY: GINNY DATE: 07/01/24 TIME: 1615 S aureus M.I.C. RX --------- ------ * Ciprofloxacin >2 R * Clindamycin <=0.5 S * Erythromycin >4 R * Gentamicin <=4 S * Levofloxacin >4 R * Linezolid 4 S * Moxifloxacin 2 S * Oxacillin 0.5 S * Penicillin >8 R * Rifampin <=1 S * Tetracycline <=4 S * Trimethoprim/Sulfamethoxazole <=0.5/9.5 S Vancomycin 2 S Daptomycin 1 S Abscess Culture Preliminary (changed) 06/30/24-1713 Organism 1 Coag positive Staphylococcus Growth HEAVY DAY 2, RESULTS TO FOLLOW Abscess Culture Preliminary (changed) 06/29/24-1447 DAY 1, RESULTS TO FOLLOW NAME: Tom Lyons LOC: [facility] U #: [id number] AGE/SX: 63/M ROOM: 254 R E06/27/[address]: Bola Marcus MD : 1960 BED: 2 D IS: FAX #: STATUS: ADM IN TLOC: Spec #: [id number] Ciara: 06/27/24 Status: COMP Req #: [id number] Recd: 06/27/[address]: Austen Telles DO Src: Blood SpDesc: Ordered: Bcult Procedure Result Verified Site Blood Culture Final 07/02/24 NO GROWTH AFTER 5 DAYS Blood Culture Preliminary (changed) 06/28/24 NEGATIVE TO DATE Blood Culture Preliminary (changed) 06/27/24 SPECIMEN COLLECTED NAME: Tom Lyons LOC: [facility] #: [id number] AGE/SX: 63/M ROOM: 254 R E06/27/[address]: Bola Marcus MD : 1960 BED: 2 D IS: FAX #: STATUS: ADM IN TLOC: Spec #: [id number] Ciara: 06/27/24 Status: COMP Req #: [id number] Recd: 06/27/[address]: Austen Telles DO Src: Blood SpDesc: Ordered: Bcult Procedure Result Verified Site Blood Culture Final 07/02/24 NO GROWTH AFTER 5 DAYS Blood Culture Preliminary (changed) 06/28/24 NEGATIVE TO DATE Blood Culture Preliminary (changed) 06/27/24 SPECIMEN COLLECTED A&P Assessment and plan (1) Acute osteomyelitis of toe: Patient with recent HPI as above. Presenting to the hospital with neck abscess and also right foot osteomyelitis Right foot has both acute and chronic changes. Destructive bone changes over the distal second phalanx with surrounding soft tissue edema is more concerning for acute osteomyelitis. Likely also a combination of necrosis of the bone related to severe peripheral artery disease. Status post irrigation and debridement on June 28, 2024. Culture from the phalanx bone without any growth so far. Currently patient is on empiric treatment with piperacillin/tazobactam. Previously he has had treatment with vancomycin additionally. Qualifiers: Laterality: right Qualified Code(s): M86.171 - Other acute osteomyelitis, right ankle and foot (2) Chronic osteomyelitis of metatarsal bone: Chronic soft tissue ulceration over the right lateral foot. Destructive bone changes of the distal fifth metatarsal associated with the soft tissue ulceration, most likely advertising sales representative of chronic osteomyelitis. Bone cultures without any growth so far. Status post irrigation and debridement in June 28, 2024. (3) Peripheral arterial disease: Severe peripheral artery disease status post intervention this admission with good posterior arterial blood flow. Likely the bony destruction noted over the phalanx is contributed by necrosis from lack of blood supply. (4) Abscess of neck: Right posterior neck abscess status post I&D on June 28, 2024 Currently wound appears to be healing well. Wound care per general surgery. Packing is being changed twice a day. CT neck reviewed from June 27, 2024. Soft tissue collection 37 x 12 x 37 mm was seen in the right upper posterior paramidline neck subcutaneous fat. No deep space extension currently encountered. There is paranasal sinus opacification. Patient does not recall any obvious trauma to the site. There is degenerative disc space throughout, however no signs of osteomyelitis or discitis. Blood cultures taken on June 27, 2024 remain negative to date. Culture from the neck abscess showing MSSA Plan Discontinue piperacillin/tazobactam today. Patient has previously been treated with vancomycin between June 28 to July 2. Additionally received clindamycin between June 28 to June 30. The latter 2 have been discontinued previously. Change antibiotics to cefazolin 2 g IV every 8 hours given recovery of MSSA on cultures from neck abscess. Anticipate MSSA to be the culprit organism for foot osteomyelitis additionally.thus far bone cultures from the foot remain negative. Pathology not available. Recommend discharge with 6 weeks of IV cefazolin 2 g every 8 hours for foot osteomyelitis (June 28, 2024 to August 08, 2024) Obtain weekly labs including CBC, creatinine, LFT and CRP while on the above treatment and faxed to infectious disease clinic for review. Arrangements being made by case management for patient to receive IV antibiotics at home, home health referral placed for PICC line check, dressing change etc. Follow-up in infectious disease clinic in 1 month. Wound care per general surgery and podiatry. Recommend strict diabetic control. Uncontrolled diabetes with an A1c of 10.8 will be a barrier to successful treatment. Other risk factors for antibiotic failure include peripheral artery disease and peripheral neuropathy. Thank you for this consult. Please call with any changes or questions. Consult Attestations 2 Medical Necessity Statement: Per admitting Coding Level of Care Code Acute Code for Chg Fwd High MDM includes number and complexity of problems actively addressed during encounter, amount and/or complexity of data reviewed/ordered and described risk of complication, morbidity or mortality of management as documented Diagnoses Acute osteomyelitis of toe of right foot M86.171 Laterality: right Chronic osteomyelitis of metatarsal bone M86.679 Peripheral arterial disease I73.9 Abscess of neck L02.11
[2024-07-04 16:31] LABS: Glucose Point of Care 313 mg/dL (70-110)
--- NOTE | 2024-07-04 17:22 | P.PN_ITS ---
Subjective 2 Subjective: doing well, no significant neck pain, no drainage reported Vitals/I&O/Wt Last Vital Signs Temp 98.0 F 07/04/24 12:00 Pulse 100 07/04/24 12:00 Resp 18 07/04/24 12:00 BP 147/84 07/04/24 12:00 Pulse Ox 97 07/04/24 12:00 O2 Del Method Room Air 07/04/24 12:00 07/04/24 07/04/24 07/04/24 06:59 14:59 22:59 Intake Total 50 / 1110 770 / 770 Output Total 950 / 2100 Balance -900 / -990 770 / 770 Weight last 48 hrs Weight 170 lb 11.2 oz Weight 170 lb Physical Exam 2 Neck/C-Spine: OTHER: neck wound healing well, no purulence or drainage. packing replaced at the bedside. Data 07/04/24 03:19 07/04/24 03:19 Micro: Microbiology 06/28/24 12:36 Gram Stain - Final Neck Anaerobic Culture - Preliminary Abscess Culture - Final Staphylococcus aureus 06/28/24 13:02 Gram Stain - Final Bone Anaerobic Culture - Preliminary Tissue Culture - Final A&P Assessment and plan (1) Abscess of neck: Plan wound care done at the bedside, neck wound is progressing well. continue twice a day packing while in house and can transition to once a day once discharged Attestations 2 Medical Necessity Statement*: per medical team Coding Level of Care Code Acute Code for Chg Fwd Diagnoses Abscess of neck L02.11
[2024-07-04] MEDS: ceFAZolin 2,000 mg SDV 2000 MG IVP ×2 (17:42→23:33)
--- NOTE | 2024-07-04 18:11 | P.PN_ITS ---
Subjective 2 Subjective: Hospital course, labs appreciated. Patient seen sitting comfortably in bed. Denies any nausea, vomiting, headache. Has remained hemodynamically stable and afebrile. Remains on room air. Vitals/I&O/Wt Last Vital Signs Temp 97.8 F 07/04/24 16:00 Pulse 102 H 07/04/24 16:00 Resp 18 07/04/24 16:00 BP 136/80 07/04/24 16:00 Pulse Ox 93 07/04/24 16:00 O2 Del Method Room Air 07/04/24 16:00 07/04/24 07/04/24 07/04/24 06:59 14:59 22:59 Intake Total 50 / 1110 770 / 770 360 / 1130 Output Total 950 / 2100 1100 / 1100 Balance -900 / -990 770 / 770 -740 / 30 Weight last 48 hrs Weight 77.428 kg Weight 77.111 kg Physical Exam 2 Narrative: General: Patient is awake. Pleasant. Head: Normocephalic. Atraumatic. EOM intact. Neck: Posterior neck wound is covered with bandage. Cardiovascular: RRR. No gallops. No murmurs. Lungs: Clear to auscultation, no use of accessory muscles, no crackles or wheezes. Skin: No jaundice. No rashes. Abdomen: Normal bowel sounds, abdomen soft and nontender. Extremities: No cyanosis or clubbing. Foot remains wrapped. Musculoskeletal: No erythematous joints. Neurological: Moves all 4 extremities. No myoclonus. Data 07/04/24 03:19 07/04/24 03:19 Micro: Microbiology 06/28/24 12:36 Gram Stain - Final Neck Anaerobic Culture - Preliminary Abscess Culture - Final Staphylococcus aureus 06/28/24 13:02 Gram Stain - Final Bone Anaerobic Culture - Preliminary Tissue Culture - Final A&P Assessment and plan (1) Sepsis: Status post neck I&D for source control; Wx w/ MSSA Status post podiatry surgery on right foot for source control; Wx NGTD Blood culture negative. Vancomycin DC'd. Discontinue clindamycin. Will discuss with infectious disease for possible transition to cefazolin. Patient will most require 6 weeks of IV antibiotics to given concerns for osteomyelitis. PICC line in place. ID consulted. (2) Peripheral arterial disease: Peripheral arterial disease of the lower extremities Status post revascularization on 06/29 Continue dual antiplatelet and statin therapy. Appreciate cardiology recommendations. (3) Osteomyelitis of foot: Osteomyelitis of right foot Podiatry following, appreciate recommendations Status post podiatry surgery by Dr. Weller on 06/28 Follow-up path/cultures Continue antibiotics as above Qualifiers: Laterality: right Osteomyelitis type: unspecified type Qualified Code(s): M86.9 - Osteomyelitis, unspecified (4) Abscess of neck: General surgery following, status post I&D 06/28 Wound care orders per Antibiotics as above (5) Diabetes: Type 2 diabetes mellitus, uncontrolled with hyperglycemia with A1c 10.8 Continue Lantus Continue sliding scale insulin ACHS. Patient is on OHA's at home. Discussion today with the patient for possible need of insulin as an outpatient. He is agreeable. Will monitor insulin requirement in next 24 hours and plan for discharge with Lantus and Humalog as an outpatient along with Jardiance. He is agreeable. (6) Tobacco dependency: Patient would benefit from tobacco cessation Continue nicotine patch (7) Hypertension: Continue ARB. Goal blood pressure less than 140/90 MAG. Plan DVT prophylaxis: Lovenox Carb consistent diet Protonix OPD prophylaxis Attestations 2 Medical Necessity Statement*: Requires further hospitalization for management of osteomyelitis in setting of uncontrolled type 2 diabetes mellitus, abscess of the neck, peripheral artery disease post angioplasty while outpatient antibiotics are adjusted Diagnoses Sepsis A41.9 Peripheral arterial disease I73.9 Osteomyelitis of foot M86.9 Laterality: right Osteomyelitis type: unspecified type Abscess of neck L02.11 Diabetes E11.9 Tobacco dependency F17.200 Hypertension I10
[2024-07-04 18:43] LABS: Iron 60 ug/dL (59-158); Percent Saturation 25.3 % (20-50); Total Iron Binding Capacity 237 mcg/dl; Unsaturated Iron Binding 177 ug/dL (112-347)
[2024-07-04 20:42] LABS: Glucose Point of Care 191 mg/dL (70-110)
[2024-07-04] MEDS: sennosides 8.6 mg Tablet 17.2 MG PO (20:55)
[2024-07-04] MEDS: enoxaparin 40 mg/0.4 mL Syringe SUBCUT (20:55)
[2024-07-04] MEDS: atorvastatin 40 mg Tablet PO (20:55)
[2024-07-04] MEDS: insulin glargine 100 units/1 mL 8 UNIT SUBCUT (20:55)
[2024-07-04 23:47] LABS: Thyroid Stimulating Hormone 3.25 uIU/mL (0.27-4.20); Vitamin B12 509 pg/mL (232-1245)
[2024-07-05] VITALS (9 sets, daily range): BP systolic 128–149; BP diastolic 71–84; PULSE 97–113; RESP 16–18; TEMP 36.4–37.3; O2SAT 95–99; BMI 26.1
[2024-07-05 06:05] LABS: Basophils # 0.1 10^3/uL (0.0-0.1); Basophils % 0.7 %; Eosinophils # 0.5 10^3/uL (0.0-0.8); Hematocrit 45.1 % (37-53); Lymphocytes # 3.7 10^3/uL (0.8-4.8); Lymphocytes % 30.4 %; Mean Corpuscular HGB Conc 32.4 g/dL (30-55); Mean Corpuscular Volume 86.4 fl (82-101); Mean Platelet Volume 10.5 fL (7.4-10.4); Monocytes % 8.3 %; Neutrophils # 6.76 10^3/uL (1.8-7.7); Neutrophils % 55.7 %; Nucleated Red Blood Cells % 0 %; Platelet Count 289 10^3/cmm (157-399); Red Blood Count 5.22 10^6/uL (3.85-5.65); Red Cell Distribution Width 13.6 % (12.1-15.1); White Blood Count 12.14 10^3/uL (3.29-11.43)
[2024-07-05 06:35] LABS: Glucose Point of Care 203 mg/dL (70-110)
[2024-07-05 06:38] LABS: Alanine Aminotransferase 20 U/L (0-41); Albumin Level 3.4 g/dL (3.5-5.2); Alkaline Phosphatase 96 U/L (40-130); Aspartate Amino Transferase 18 U/L (0-40); Blood Urea Nitrogen 23 mg/dL (8-23); C Reactive Protein 6.1 mg/L (0.0-4.9); Calcium 8.9 mg/dL (8.5-10.5); Carbon Dioxide 27 mmol/L (22-29); Chloride 99 mmol/L (98-107); Chol HDL Ratio 3.36 mg/dL (1.0-5.00); Cholesterol 111 mg/dL (0-200); Creatinine Clr Calc Pharmacy 127.5286; Globulin 3.9 g/dL (1.3-4.6); Glomerular Filtration Rate 136.5 mL/min (90-130); Glucose 195 mg/dL (65-115); HDL Cholesterol 33 mg/dL (60-100); LDL Cholesterol Calculated 52 mg/dL (50-129); Magnesium 2.1 mg/dL (1.7-2.3); Osmolality Calculated 289 mOsm/kg (285-295); Sodium 135 mmol/L (136-145); Total Bilirubin 0.3 mg/dL (0.15-1.2); Total Protein 7.3 g/dL (6.6-8.7); Triglycerides 132 mg/dL (0-150); VLDL Cholestrol Calculation 26 mg/dL (0-30)
[2024-07-05 06:42] LABS: Anion Gap 13.1 (5-19); Potassium 4.1 mmol/L (3.5-5.1)
[2024-07-05 06:44] LABS: Folate Level 10.8 ng/mL (4.5-32.2)
[2024-07-05] MEDS: aspirin 81 mg EC Tablet PO (08:24)
[2024-07-05] MEDS: ceFAZolin 2,000 mg SDV 2000 MG IVP ×3 (08:24→20:17)
[2024-07-05] MEDS: insulin lispro 100 unit/1 mL SUBCUT ×4 (08:29→20:18)
[2024-07-05] MEDS: pantoprazole DR 40 mg Tablet PO (08:29)
[2024-07-05] MEDS: clopidogrel 75 mg Tablet PO (08:29)
[2024-07-05] MEDS: losartan 50 mg Tablet 25 MG PO (08:37)
--- NOTE | 2024-07-05 11:46 | PM.DCS ---
Discharge Providers Date of Admission: 06/27/24 23:08 Date of Discharge: July 05, 2024 Attending Provider at Admission: Ori Chatterjee MD Attending Provider at Discharge: Bola Marcus MD Consults: Cardiology: Dr. Moise. Surgery: Dr. Gordo Mcelroy Podiatry: Dr. Weller ID: Cheanjana Primary Care Provider: Dustin Machado DO Diagnoses at Discharge Discharge Diagnosis (1) Sepsis: Status: Acute (2) Peripheral arterial disease: Status: Acute (3) Osteomyelitis of foot: Status: Acute Qualifiers: Laterality: right Osteomyelitis type: unspecified type Qualified Code(s): M86.9 - Osteomyelitis, unspecified (4) Abscess of neck: Status: Acute (5) Diabetes: Status: Acute (6) Tobacco dependency: Status: Acute (7) Hypertension: Status: Acute Reason for Visit [place] for Visit[place], and cyst on neck Brief History: History as per HPI: Tom Lyons is a 63 year old male with history of diabetes, takes metformin, living in a camper on the property of his sister, presented to the ER few days ago for neck pain, he was diagnosed with abscess, I&D was done in the ER, he was prescribed Bactrim, was not able to afford the medication came back with worsening of neck pain. In the ER he has been diagnosed with significant neck abscess 37 x 12 x 37 mm fluid collection, patient is not showing sign of meningitis, he is also showing signs of swelling and cellulitis of right foot, there is fifth metatarsal head osseous erosion consistent with osteomyelitis, second distal phalanx fracture, patient is not endorsing any pain at all in his foot, he is not endorsing rigors, chills, pain, shortness of breath. Stating that his blood sugar has been out of control, he has been taking metformin. Review of records revealed that patient has history of carotid endarterectomy in [place], right great toe amputation at [facility] 2023, history of coronary disease status post 2 stents, patient quit drinking more than 5 years ago, Previous EF 60 to 65% echo was done 2020 There is no documentation for peripheral arterial disease however clinically does have dry gangrene appearance of his right foot wound I have asked ER physician to consult general surgery and podiatry I have started started septic bolus, requested lactic acid, Hospital Course Hospital Course Patient was admitted to the hospital for further evaluation and management of sepsis in setting of abscess of the neck and right foot osteomyelitis along with fracture. Surgery and podiatry were consulted. He underwent debridement of the neck wound on 06/28 and incision and biopsy of the bone cortex on the same day. He also underwent CT of the aorta which revealed severe stenosis at the ostium of internal labia. Cardiology was consulted and he underwent peripheral angiogram which showed 99% mid SFA stenosis. Currently patient is post balloon angioplasty for revascularization. Wound cultures grew MSSA. Given concerns for osteomyelitis and MSSA ID was consulted. He has been discharged in hemodynamically stable condition on IV cefazolin 2 g every 8 hours for next 6 weeks. During hospitalization he was found to have uncontrolled type 2 diabetes mellitus for which he has been transition from OHA's to insulin. He will be on Lantus 15 units every morning along with 5 units of Humalog 3 times a day premeals. He has been started on losartan 50 mg oral daily along with metoprolol succinate 25 mg for hypertension. He is going to be taking DAPT along with statin. He is to follow-up with podiatry, ID and cardiology on set appointment. Physical Exam Narrative: General: Patient is awake. Pleasant. Head: Normocephalic. Atraumatic. EOM intact. Neck: Posterior neck wound is covered with bandage. Cardiovascular: RRR. No gallops. No murmurs. Lungs: Clear to auscultation, no use of accessory muscles, no crackles or wheezes. Skin: No jaundice. No rashes. Abdomen: Normal bowel sounds, abdomen soft and nontender. Extremities: No cyanosis or clubbing. Foot remains wrapped. Musculoskeletal: No erythematous joints. Neurological: Moves all 4 extremities. No myoclonus. Discharge Data Studies Completed and Pending Completed Studies During Hospitalization Category Date Time Status CT foot RT w con [id number] Stat Cat Scan 06/27/24 20:[address] neck w con* [id number] Stat Cat Scan 06/27/24 20:22 Completed CTA lower extremity bilateral [place] [id number]] Cat Scan 06/28/24 00:16 Completed Routine CXRP [XR chest 1V portable [id number]] Routine Exams 06/30/24 13:06 Completed XR foot RT min 3V* [id number] Routine Exams 06/28/24 06:32 Completed Pending at discharge Category Date Time Status GRAY TENDER request for service Routine Exams 06/29/24 12:20 Taken MAG [Magnesium] AM LABS Lab 07/06/24 04:00 Ordered MAG [Magnesium] AM LABS Lab 07/07/24 04:00 Ordered US arterial duplex lower extremity bilat [CV arterial Ultrasound 06/28/24 00:17 [place] [id number]] Routine Radiology Impressions Foot CT 06/27/24 20:22 IMPRESSION: 1. Soft tissue thickening and osseous erosion of the 5th metatarsal head suspicious for chronic or acute on chronic osteomyelitis. 2. Additional soft tissue thickening/wound and underlying erosion and mildly comminuted fracture of the 2nd distal phalanx , also suspicious for osteomyelitis and pathologic fracture. Neck CT 06/27/24 20:22 IMPRESSION: 1. 37 x 12 x 37 mm fluid collection in the right upper posterior paramidline neck subcutaneous fat concerning for an abscess with associated surrounding edema and soft tissue thickening consistent with cellulitis. 2. Paranasal sinus opacification. 3. Degenerative disc space disease throughout the spine. 4. Carotid artery atherosclerotic calcifications. Lower Extremity CTA 06/28/24 00:16 IMPRESSION: 1. Moderate-severe atherosclerotic changes with contrast fading out in the bilateral distal anterior tibial arteries. No flow appreciated in the bilateral dorsalis pedis arteries. 2. Soft tissue defect along the plantar lateral aspect of the right 5th metatarsal head with diffuse surrounding soft tissue thickening likely representing a cellulitis. 3. Bony deformity/erosive changes along the head of the right 5th metatarsal which is likely secondary to osteomyelitis of unknown chronicity. ADDENDUM: 06/28/24 0240 THIS REPORT CONTAINS FINDINGS THAT MAY BE CRITICAL TO PATIENT CARE. The findings were verbally communicated via telephone conference with ORI CHATTERJEE at 2:37 AM RESEARCH SCHOLAR on 06/28/2024. The findings were acknowledged and understood. Foot X-Ray 06/28/24 06:32 IMPRESSION: 1. Destructive bone changes of the distal fifth metatarsal with soft tissue ulceration. Also osseous destruction of the distal end of the distal second phalanx with soft tissue edema. Acute osteomyelitis cannot be ruled out. Chest X-Ray 06/30/24 13:06 IMPRESSION: 1. Right-sided PICC line ending at the expected region of the cavoatrial junction in satisfactory position. 2. Pulmonary vascular congestion. Low-grade CHF is not excluded. Fluid overload might be considered. Microbiology 06/28/24 12:36 Neck Gram Stain - Final 06/28/24 12:36 Neck Anaerobic Culture - Final 06/28/24 12:36 Neck Abscess Culture - Final Staphylococcus aureus 06/28/24 13:02 Bone Gram Stain - Final 06/28/24 13:02 Bone Anaerobic Culture - Final 06/28/24 13:02 Bone Tissue Culture - Final 06/27/24 20:46 Blood Blood Culture - Final NO GROWTH AFTER 5 DAYS 06/27/24 20:42 Blood Blood Culture - Final NO GROWTH AFTER 5 DAYS Laboratory Results WBC 12.14 10^3/uL (3.29-11.43) H 07/05/24 05:15 RBC 5.22 10^6/uL (3.85-5.65) 07/05/24 05:15 Hgb 14.60 g/dL (11.27-16.99) 07/05/24 05:15 Hct 45.1 % (37-53) 07/05/24 05:15 MCV 86.4 fl (82-101) 07/05/24 05:15 MCH 28.0 pg (27-33) 07/05/24 05:15 MCHC 32.4 g/dL (30-55) 07/05/24 05:15 RDW 13.6 % (12.1-15.1) 07/05/24 05:15 Plt Count 289 10^3/cmm (157-399) 07/05/24 05:15 MPV 10.5 fL (7.4-10.4) H 07/05/24 05:15 Neut % (Auto) 55.7 % 07/05/24 05:15 Lymph % (Auto) 30.4 % 07/05/24 05:15 Freestone % (Auto) 8.3 % 07/05/24 05:15 Eos % (Auto) 4.0 % 07/05/24 05:15 Baso % (Auto) 0.7 % 07/05/24 05:15 Neut # (Auto) 6.76 10^3/uL (1.8-7.7) 07/05/24 05:15 Lymph # (Auto) 3.7 10^3/uL (0.8-4.8) 07/05/24 05:15 Fre[place] # (Auto) 1.0 10^3/uL (0.2-0.9) H 07/05/24 05:15 Eos # (Auto) 0.5 10^3/uL (0.0-0.8) 07/05/24 05:15 Baso # (Auto) 0.1 10^3/uL (0.0-0.1) 07/05/24 05:15 Nucleated RBC % (auto) 0 % 07/05/24 05:15 Nucleated RBCs # 0.0 /100WBC 07/05/24 05:15 ESR 96 mm/hr (0-10) H 06/27/24 20:42 APTT 33.7 SECONDS (23.9-36.7) D 06/29/24 17:00 Sodium 135 mmol/L (136-145) L 07/05/24 05:15 Potassium 4.1 mmol/L (3.5-5.1) 07/05/24 05:15 Chloride 99 mmol/L (98-107) 07/05/24 05:15 Carbon Dioxide 27 mmol/L (22-29) 07/05/24 05:15 Anion Gap 13.1 (5-19) 07/05/24 05:15 BUN 23 mg/dL (8-23) 07/05/24 05:15 Creatinine 0.6 mg/dL (0.7-1.2) L 07/05/24 05:15 GFR Calculation 136.5 mL/min (90-130) H 07/05/24 05:15 Glucose 195 mg/dL (65-115) H 07/05/24 05:15 POC Glucose 203 mg/dL (70-110) H 07/05/24 06:19 Estimat Average Glucose 263 06/28/24 08:30 Hemoglobin A1c 10.8 % (4.0-6.0) H 06/28/24 08:30 Calculated Osmolality 289 mOsm/kg (285-295) 07/05/24 05:15 Lactic Acid 1.3 mmol/L (0.5-2.2) 06/28/24 00:25 Calcium 8.9 mg/dL (8.5-10.5) 07/05/24 05:15 Phosphorus 3.5 mg/dL (2.5-4.5) 07/04/24 03:19 Magnesium 2.1 mg/dL (1.7-2.3) 07/05/24 05:15 Iron 60 ug/dL (59-158) 07/04/24 03:19 TIBC 237 mcg/dl 07/04/24 03:19 % Saturation 25.3 % (20-50) 07/04/24 03:19 Unsat Iron Binding 177 ug/dL (112-347) 07/04/24 03:19 Total Bilirubin 0.3 mg/dL (0.15-1.2) 07/05/24 05:15 AST 18 U/L (0-40) 07/05/24 05:15 ALT 20 U/L (0-41) 07/05/24 05:15 Alkaline Phosphatase 96 U/L (40-130) 07/05/24 05:15 C-Reactive Protein 6.1 mg/L (0.0-4.9) H 07/05/24 05:15 Total Protein 7.3 g/dL (6.6-8.7) 07/05/24 05:15 Albumin 3.4 g/dL (3.5-5.2) L 07/05/24 05:15 Globulin 3.9 g/dL (1.3-4.6) 07/05/24 05:15 Triglycerides 132 mg/dL (0-150) 07/05/24 05:15 Cholesterol 111 mg/dL (0-200) 07/05/24 05:15 LDL Cholesterol, Calc 52 mg/dL (50-129) 07/05/24 05:15 Total VLDL Cholesterol 26 mg/dL (0-30) 07/05/24 05:15 HDL Cholesterol 33 mg/dL (60-100) L 07/05/24 05:15 Cholesterol/HDL Ratio 3.36 mg/dL (1.0-5.00) 07/05/24 05:15 Vitamin B12 509 pg/mL (232-1245) 07/04/24 03:19 Folate 10.8 ng/mL (4.5-32.2) 07/05/24 05:15 Procalcitonin 0.07 ng/mL (0-0.5) 06/27/24 20:42 TSH 3.25 uIU/mL (0.27-4.20) 07/04/24 03:19 Vancomycin Trough 20.5 ug/mL (10-15) H 07/02/24 23:56 Vitals Last Vital Signs Temp 97.8 F 07/05/24 08:00 Pulse 100 07/05/24 08:33 Resp 16 07/05/24 08:33 BP 146/71 07/05/24 08:37 Pulse Ox 96 07/05/24 08:33 O2 Del Method Room Air 07/05/24 08:33 Discharge Plan Discharge Patient Disposition: Home Condition: Stable Prescriptions: New atorvastatin 40 mg Tablet 40 mg PO BEDTIME Qty: 30 0RF clopidogrel 75 mg Tablet 75 mg PO DAILY Qty: 30 0RF aspirin 81 mg Tablet,Delayed Release (Dr/Ec) 81 mg PO DAILY Qty: 30 0RF losartan 50 mg Tablet 50 mg PO DAILY Qty: 30 0RF (DME) lancets Misc See Rx Instructions .ROUTE .MEDSUPPLY Qty: 100 0RF Rx Instructions: As directed (DME) blood-glucose meter [Blood Glucose Monitoring] Kit See Rx Instructions .ROUTE .MEDSUPPLY Qty: 1 0RF Rx Instructions: As directed (DME) pen needle, diabetic [BD Ultra-Fine Micro Pen Needle] 32 gauge x 1/4 needle See Rx Instructions .ROUTE .MEDSUPPLY Qty: 50 0RF Rx Instructions: As directed metoprolol succinate 25 mg tablet extended release 24 hr 25 mg PO DAILY Qty: 30 0RF insulin glargine [Lantus Solostar U-100 Insulin] 100 unit/mL (3 mL) insulin pen 15 unit SUBCUT DAILY Qty: 15 0RF insulin lispro [Humalog KwikPen Insulin] 100 unit/mL insulin pen 5 unit SUBCUT TID Qty: 15 0RF Continued Jardiance 25 mg Tablet 25 mg PO DAILY Discontinued glipizide 10 mg Tablet 10 mg PO TID metformin 500 mg Tablet Extended Release 24 Hr 500 mg PO BID Discharge Orders: Discharge Order (Routine); Ordered 07/05/24 Ordered By: Bola Marcus Referrals: [facility] [Provider Group] - 08/09/24 11:00 am Karl Weller DPM [Physician] - 07/07/24 10:30 am (APPOINTMENT WITH NURSE TO DO DRESSING CHANGE) Jose Moise M.D [Physician] - 1 month Dustin Machado DO [Primary Care Provider] - 07/19/24 1:00 pm Lou Ricardo FNP [Nurse Practitioner] - 2 weeks Discharge Diet: Cardiac and Diabetic Discharge Activity: Resume usual activity and Increase activity as tolerated Patient Instructions: Acute Wound Care (DC), Opioid Safety, Post Anesthesia Care Activity Restrictions/Additional Instructions: Continue antibiotics for next 6 weeks. You will be getting blood work every week. Follow-up with ID on set appointment. PICC line should be removed after completion of IV antibiotics. Aspirin, Plavix, statin other medications for the stent which do not take daily. Check your blood pressure daily at home maintain a blood pressure diary. Goal blood pressures less than 140/90 mmHg. Take losartan 50 mg oral daily and metoprolol succinate 25 mg oral daily. Do not take metformin and glipizide anymore. Continue taking Jardiance as before. Take Lantus 15 units every morning and Humalog/Premeal insulin 5 units before each meal. Please check your fasting blood sugars every morning. Goal blood sugar is less than 130. Please follow-up with a primary care provider within next 2 weeks with a blood pressure and blood sugar diary for further adjustment of medications. He should have a repeat A1c within [address] Weller/podiatry Patient scheduled for follow-up in podiatry clinic [facility] medical office building outpatient next week July 05, 2024 at 8:15 AM Recommend once daily Betadine wet-to-dry dressing change to the right second toe and right lateral forefoot. May partial weight-bear with heel touch right lower extremity with postop shoe Contact podiatry clinic with any questions or concerns with your feet [phone] Discharge Attestations Time Spent in Discharge Care*: greater than 30 min Specific Discharge Activities: educating patient, educating and/or supporting family/caregiver, discussing with pcp/other providers, discussing with complex case manager/social workers/dc planners, documenting/other paperwork and evaluating patient/reviewing data Status at Discharge: Cognitive status at discharge: cognitively intact, Behavioral status at discharge: cooperative, Functional status at discharge: uses cane/walker, Overall status at discharge: patient is progressing back to baseline Quality Metrics Clinical Quality Measures [ No reported AMI, CVA or VTE this stay] Coding Level of Care Code 28640 Total time (in minutes) for Discharge: 70 Diagnoses Sepsis A41.9 Peripheral arterial disease I73.9 Osteomyelitis of foot M86.9 Laterality: right Osteomyelitis type: unspecified type Abscess of neck L02.11 Diabetes E11.9 Tobacco dependency F17.200 Hypertension I10
[2024-07-05 11:56] LABS: Glucose Point of Care 203 mg/dL (70-110)
[2024-07-05] MEDS: ALPRAZolam 0.5 mg Tablet 0.25 MG PO (15:08)
[2024-07-05 16:37] LABS: Glucose Point of Care 196 mg/dL (70-110)
[2024-07-05 19:50] LABS: Glucose Point of Care 215 mg/dL (70-110)
[2024-07-05] MEDS: sennosides 8.6 mg Tablet 17.2 MG PO (20:18)
[2024-07-05] MEDS: atorvastatin 40 mg Tablet PO (20:18)
[2024-07-05] MEDS: enoxaparin 40 mg/0.4 mL Syringe SUBCUT (20:18)
[2024-07-05] MEDS: insulin glargine 100 units/1 mL 8 UNIT SUBCUT (20:18)
[2024-07-05] MEDS: HYDROcodone-acetaminophen 5-325 mg Tablet 1 TAB PO (20:28)
== END 2024-07-05 20:31 | disposition home health service (06) | DRG 854 ==
LOC: ER 23:49 → MEDSURG 06-28 → CSU 06-29 13:33 → MEDSURG 07-01 14:39
PROVIDERS: Emergency Medicine; Internal Medicine; Nurse Practitioner Family; Podiatrist Foot & Ankle Surgery; Student in an Organized Health Care Education/Training Program; Surgery; Admitting Provider Internal Medicine; Emergency Provider Emergency Medicine; PCP Emergency Medicine Emergency Medical Services; Visit Provider Student in an Organized Health Care Education/Training Program
PROC: 0H94XZX Drainage of Neck Skin, External Approach, Diagnostic (ICD-10-PCS; principal; 2024-06-28 12:15)
PROC: 0QBQ0ZZ Excision of Right Toe Phalanx, Open Approach (ICD-10-PCS; 2024-06-28 12:15)
PROC: 047K3ZZ Dilation of Right Femoral Artery, Percutaneous Approach (ICD-10-PCS; principal; 2024-06-29 12:00)
PROC: 047K3ZZ Dilation of Right Femoral Artery, Percutaneous Approach (ICD-10-PCS; 2024-06-29 12:00)
DX: A41.9 Sepsis, unspecified organism (principal); E11.52 Type 2 diabetes mellitus with diabetic peripheral angiopathy with gangrene; M86.171 Other acute osteomyelitis, right ankle and foot; M86.671 Other chronic osteomyelitis, right ankle and foot; M84.674A Pathological fracture in other disease, right foot, initial encounter for fracture; E11.65 Type 2 diabetes mellitus with hyperglycemia; E11.40 Type 2 diabetes mellitus with diabetic neuropathy, unspecified; E11.69 Type 2 diabetes mellitus with other specified complication; D75.1 Secondary polycythemia; E86.0 Dehydration; Z86.73 Personal history of transient ischemic attack (TIA), and cerebral infarction without residual deficits; Z79.84 Long term (current) use of oral hypoglycemic drugs; Z79.4 Long term (current) use of insulin; Z79.82 Long term (current) use of aspirin
CPT/HCPCS: 36415; 36416; 36573; 37224; 37228; 70491; 71045; 73630; 73701; 73706; 75625; 75716; 80048; 80053; 80061; 80069; 80202; 82607; 82746; 82962; 83036; 83540; 83550; 83605; 83735; 84100; 84145; 84443; 85025; 85347; 85651; 85730; 86140; 87040; 87070; 87075; 87077; 87176; 87186; 87205; 93005; 93925; 96365; 96372; 96374; 96376; 97760; 99152; 99153; 99285; C1725; C1769; C1887; C1894; J0690; J1100; J1644; J1650; J1815; J2250; J2405; J2470; J2543; J2704; J3010; J3370; J3372; J3490; J7030; L3260; Q0163; Q9967

== ENCOUNTER 2024-07-11 13:56 | Outpatient (CLI) | payer OTHER, SELFPAY ==
[2024-07-11 14:12] LABS: Basophils % 0.3 %; Eosinophils # 0.6 10^3/uL (0.0-0.8); Eosinophils % 5.5 %; Hematocrit 41.3 % (37-53); Lymphocytes # 3.8 10^3/uL (0.8-4.8); Lymphocytes % 33.1 %; Mean Corpuscular HGB Conc 31.7 g/dL (30-55); Mean Corpuscular Hemoglobin 27.9 pg (27-33); Mean Corpuscular Volume 87.9 fl (82-101); Mean Platelet Volume 11.6 fL (7.4-10.4); Monocytes % 9.1 %; Neutrophils % 51.4 %; Nucleated Red Blood Cells % 0 %; Platelet Count 241 10^3/cmm (157-399); White Blood Count 11.48 10^3/uL (3.29-11.43)
[2024-07-11 14:30] LABS: Alanine Aminotransferase 21 U/L (0-41); Albumin Level 3.7 g/dL (3.5-5.2); Alkaline Phosphatase 115 U/L (40-130); Anion Gap 16.2 (5-19); Aspartate Amino Transferase 26 U/L (0-40); Blood Urea Nitrogen 19 mg/dL (8-23); Calcium 8.8 mg/dL (8.5-10.5); Carbon Dioxide 24 mmol/L (22-29); Chloride 103 mmol/L (98-107); Globulin 3.7 g/dL (1.3-4.6); Glomerular Filtration Rate 114.3 mL/min (90-130); Glucose 398 mg/dL (65-115); Osmolality Calculated 307 mOsm/kg (285-295); Potassium 4.2 mmol/L (3.5-5.1); Sodium 139 mmol/L (136-145); Total Bilirubin 0.2 mg/dL (0.15-1.2); Total Protein 7.4 g/dL (6.6-8.7)
== END 2024-07-11 13:57 | disposition home or self-care (01) ==
LOC: LAB 14:01
PROVIDERS: PCP Emergency Medicine Emergency Medical Services; Visit Provider Student in an Organized Health Care Education/Training Program
DX: M86.171 Other acute osteomyelitis, right ankle and foot (principal); E11.42 Type 2 diabetes mellitus with diabetic polyneuropathy; L02.11 Cutaneous abscess of neck
CPT/HCPCS: 80053; 85025

== ENCOUNTER 2024-07-18 15:43 | Outpatient (CLI) | payer OTHER, SELFPAY ==
[2024-07-18 16:02] LABS: Basophils % 0.3 %; Eosinophils # 0.5 10^3/uL (0.0-0.8); Eosinophils % 4.5 %; Hematocrit 44.4 % (37-53); Lymphocytes # 2.9 10^3/uL (0.8-4.8); Lymphocytes % 25.5 %; Mean Corpuscular HGB Conc 32.4 g/dL (30-55); Mean Corpuscular Hemoglobin 28.2 pg (27-33); Mean Corpuscular Volume 87.1 fl (82-101); Mean Platelet Volume 11.5 fL (7.4-10.4); Monocytes % 8.3 %; Neutrophils # 6.98 10^3/uL (1.8-7.7); Nucleated Red Blood Cells % 0 %; Platelet Count 230 10^3/cmm (157-399); Red Cell Distribution Width 13.9 % (12.1-15.1); White Blood Count 11.46 10^3/uL (3.29-11.43)
[2024-07-18 16:13] LABS: Alanine Aminotransferase 16 U/L (0-41); Albumin Level 3.7 g/dL (3.5-5.2); Alkaline Phosphatase 121 U/L (40-130); Blood Urea Nitrogen 21 mg/dL (8-23); Calcium 8.8 mg/dL (8.5-10.5); Carbon Dioxide 24 mmol/L (22-29); Chloride 96 mmol/L (98-107); Globulin 3.8 g/dL (1.3-4.6); Glomerular Filtration Rate 136.5 mL/min (90-130); Glucose 394 mg/dL (65-115); Osmolality Calculated 291 mOsm/kg (285-295); Sodium 131 mmol/L (136-145); Total Bilirubin 0.4 mg/dL (0.15-1.2); Total Protein 7.5 g/dL (6.6-8.7)
[2024-07-18 16:31] LABS: Anion Gap 15.5 (5-19); Aspartate Amino Transferase 26 U/L (0-40); Potassium 4.5 mmol/L (3.5-5.1)
== END 2024-07-18 15:44 | disposition home or self-care (01) ==
LOC: LAB 15:47
PROVIDERS: PCP Emergency Medicine Emergency Medical Services; Visit Provider Student in an Organized Health Care Education/Training Program
DX: M86.171 Other acute osteomyelitis, right ankle and foot (principal); E11.42 Type 2 diabetes mellitus with diabetic polyneuropathy; L02.11 Cutaneous abscess of neck
CPT/HCPCS: 80053; 85025

== ENCOUNTER 2024-07-25 13:05 | Outpatient (CLI) | payer OTHER, SELFPAY ==
[2024-07-25 13:24] LABS: Basophils % 0.4 %; Eosinophils # 0.6 10^3/uL (0.0-0.8); Eosinophils % 5.8 %; Hematocrit 42.4 % (37-53); Lymphocytes # 3.4 10^3/uL (0.8-4.8); Lymphocytes % 30.5 %; Mean Corpuscular HGB Conc 32.8 g/dL (30-55); Mean Corpuscular Hemoglobin 29.3 pg (27-33); Mean Corpuscular Volume 89.3 fl (82-101); Mean Platelet Volume 11.2 fL (7.4-10.4); Monocytes % 8.8 %; Nucleated Red Blood Cells % 0 %; Platelet Count 173 10^3/cmm (157-399); Red Blood Count 4.75 10^6/uL (3.85-5.65); Red Cell Distribution Width 14.2 % (12.1-15.1); White Blood Count 11.08 10^3/uL (3.29-11.43)
[2024-07-25 13:45] LABS: Alanine Aminotransferase 10 U/L (0-41); Albumin Level 3.5 g/dL (3.5-5.2); Alkaline Phosphatase 108 U/L (40-130); Anion Gap 12.8 (5-19); Aspartate Amino Transferase 19 U/L (0-40); Blood Urea Nitrogen 12 mg/dL (8-23); Calcium 8.4 mg/dL (8.5-10.5); Carbon Dioxide 24 mmol/L (22-29); Chloride 108 mmol/L (98-107); Globulin 3.4 g/dL (1.3-4.6); Glomerular Filtration Rate 168.5 mL/min (90-130); Glucose 155 mg/dL (65-115); Osmolality Calculated 295 mOsm/kg (285-295); Potassium 3.8 mmol/L (3.5-5.1); Sodium 141 mmol/L (136-145); Total Bilirubin 0.5 mg/dL (0.15-1.2); Total Protein 6.9 g/dL (6.6-8.7)
== END 2024-07-25 13:06 | disposition home or self-care (01) ==
LOC: LAB 13:07
PROVIDERS: PCP Emergency Medicine Emergency Medical Services; Visit Provider Student in an Organized Health Care Education/Training Program
DX: M86.171 Other acute osteomyelitis, right ankle and foot (principal); E11.42 Type 2 diabetes mellitus with diabetic polyneuropathy; L02.11 Cutaneous abscess of neck; I73.9 Peripheral vascular disease, unspecified; Z98.62 Peripheral vascular angioplasty status; I10 Essential (primary) hypertension; E78.5 Hyperlipidemia, unspecified; Z79.84 Long term (current) use of oral hypoglycemic drugs; F17.200 Nicotine dependence, unspecified, uncomplicated; F43.10 Post-traumatic stress disorder, unspecified
CPT/HCPCS: 80053; 85025; 99214

== ENCOUNTER 2024-08-03 11:49 | Outpatient (CLI) | payer OTHER, SELFPAY ==
[2024-08-03 12:00] LABS: Basophils % 0.3 %; Eosinophils # 0.6 10^3/uL (0.0-0.8); Eosinophils % 5.8 %; Hematocrit 42.2 % (37-53); Lymphocytes # 2.9 10^3/uL (0.8-4.8); Lymphocytes % 29.9 %; Mean Corpuscular HGB Conc 32.5 g/dL (30-55); Mean Corpuscular Hemoglobin 28.7 pg (27-33); Mean Corpuscular Volume 88.5 fl (82-101); Mean Platelet Volume 11.2 fL (7.4-10.4); Monocytes # 0.8 10^3/uL (0.2-0.9); Monocytes % 8.7 %; Neutrophils # 5.31 10^3/uL (1.8-7.7); Nucleated Red Blood Cells % 0 %; Platelet Count 186 10^3/cmm (157-399); Red Blood Count 4.77 10^6/uL (3.85-5.65); White Blood Count 9.66 10^3/uL (3.29-11.43)
[2024-08-03 12:18] LABS: Alanine Aminotransferase 16 U/L (0-41); Albumin Level 3.7 g/dL (3.5-5.2); Alkaline Phosphatase 112 U/L (40-130); Blood Urea Nitrogen 13 mg/dL (8-23); Calcium 8.8 mg/dL (8.5-10.5); Carbon Dioxide 26 mmol/L (22-29); Chloride 103 mmol/L (98-107); Globulin 3.2 g/dL (1.3-4.6); Glomerular Filtration Rate 114.3 mL/min (90-130); Glucose 302 mg/dL (65-115); Osmolality Calculated 301 mOsm/kg (285-295); Sodium 140 mmol/L (136-145); Total Bilirubin 0.3 mg/dL (0.15-1.2); Total Protein 6.9 g/dL (6.6-8.7)
[2024-08-03 12:25] LABS: Anion Gap 14.8 (5-19); Aspartate Amino Transferase 26 U/L (0-40); Potassium 3.8 mmol/L (3.5-5.1)
== END 2024-08-03 11:50 | disposition home or self-care (01) ==
LOC: LAB 11:51
PROVIDERS: PCP Emergency Medicine Emergency Medical Services; Visit Provider Student in an Organized Health Care Education/Training Program
DX: M86.171 Other acute osteomyelitis, right ankle and foot (principal); E11.42 Type 2 diabetes mellitus with diabetic polyneuropathy; L02.11 Cutaneous abscess of neck
CPT/HCPCS: 80053; 85025

== ENCOUNTER 2024-08-08 11:44 | Outpatient (CLI) | payer OTHER, SELFPAY ==
[2024-08-08 12:39] LABS: Basophils % 0.4 %; Eosinophils # 0.5 10^3/uL (0.0-0.8); Eosinophils % 5.3 %; Hematocrit 45.1 % (37-53); Lymphocytes # 2.4 10^3/uL (0.8-4.8); Lymphocytes % 23.3 %; Mean Corpuscular HGB Conc 32.2 g/dL (30-55); Mean Corpuscular Hemoglobin 28.4 pg (27-33); Mean Corpuscular Volume 88.3 fl (82-101); Mean Platelet Volume 11.9 fL (7.4-10.4); Monocytes % 9.5 %; Neutrophils # 6.27 10^3/uL (1.8-7.7); Nucleated Red Blood Cells % 0 %; Platelet Count 173 10^3/cmm (157-399); Red Blood Count 5.11 10^6/uL (3.85-5.65); Red Cell Distribution Width 13.8 % (12.1-15.1); White Blood Count 10.26 10^3/uL (3.29-11.43)
[2024-08-08 13:00] LABS: Alanine Aminotransferase 16 U/L (0-41); Albumin Level 3.7 g/dL (3.5-5.2); Alkaline Phosphatase 124 U/L (40-130); Blood Urea Nitrogen 19 mg/dL (8-23); Calcium 8.9 mg/dL (8.5-10.5); Carbon Dioxide 24 mmol/L (22-29); Chloride 99 mmol/L (98-107); Globulin 3.2 g/dL (1.3-4.6); Glomerular Filtration Rate 114.3 mL/min (90-130); Glucose 404 mg/dL (65-115); Osmolality Calculated 299 mOsm/kg (285-295); Sodium 135 mmol/L (136-145); Total Bilirubin 0.2 mg/dL (0.15-1.2); Total Protein 6.9 g/dL (6.6-8.7)
[2024-08-08 13:03] LABS: Anion Gap 16.5 (5-19); Potassium 4.5 mmol/L (3.5-5.1)
[2024-08-08 13:04] LABS: Aspartate Amino Transferase 29 U/L (0-40)
== END 2024-08-08 11:45 | disposition home or self-care (01) ==
LOC: LAB 11:52
PROVIDERS: PCP Emergency Medicine Emergency Medical Services; Visit Provider Student in an Organized Health Care Education/Training Program
DX: M86.171 Other acute osteomyelitis, right ankle and foot (principal); E11.42 Type 2 diabetes mellitus with diabetic polyneuropathy; L02.11 Cutaneous abscess of neck
CPT/HCPCS: 80053; 85025

== ENCOUNTER → 2024-08-09 12:20 | Outpatient (BNVA) | payer OTHER, SELFPAY | PROVIDERS: PCP Emergency Medicine Emergency Medical Services; Visit Provider Student in an Organized Health Care Education/Training Program | DX: M86.171 Other acute osteomyelitis, right ankle and foot (principal); M86.671 Other chronic osteomyelitis, right ankle and foot; E11.42 Type 2 diabetes mellitus with diabetic polyneuropathy; L02.11 Cutaneous abscess of neck; E11.9 Type 2 diabetes mellitus without complications; Z45.2 Encounter for adjustment and management of vascular access device; M86.679 Other chronic osteomyelitis, unspecified ankle and foot | CPT/HCPCS: 73620; 87070; 87075; 87205; 99205 ==

== ENCOUNTER → 2024-08-15 13:49 | Outpatient (BNVA) | payer OTHER, SELFPAY | PROVIDERS: PCP Emergency Medicine Emergency Medical Services; Visit Provider Podiatrist Foot & Ankle Surgery | DX: E11.621 Type 2 diabetes mellitus with foot ulcer (principal); L97.512 Non-pressure chronic ulcer of other part of right foot with fat layer exposed; M86.171 Other acute osteomyelitis, right ankle and foot; M86.671 Other chronic osteomyelitis, right ankle and foot; E11.42 Type 2 diabetes mellitus with diabetic polyneuropathy; Z79.84 Long term (current) use of oral hypoglycemic drugs | CPT/HCPCS: 11044; 99214 ==

== ENCOUNTER 2024-08-19 11:24 | Day surgery (SDC) | payer OTHER, SELFPAY ==
[2024-08-19] VITALS (8 sets, daily range): BP systolic 97–136; BP diastolic 55–86; PULSE 82–92; RESP 15–18; TEMP 36.1–36.6; O2SAT 94–98; BMI 26.6
[2024-08-19] MEDS: sodium chloride 0.9% 1,000 ML 30 ML IV (12:01)
[2024-08-19 12:07] LABS: Glucose Point of Care 180 mg/dL (70-110)
--- NOTE | 2024-08-19 12:18 | ANES.PREANE2 ---
Pre-Anesthetic Assessment Height/Weight: Height 5 ft 7 in Weight 170 lb Temp Pulse Resp BP Pulse Ox O2 Del Method 97.5 F L 92 18 136/86 98 Room Air 08/19/24 11:42 08/19/24 11:42 08/19/24 11:42 08/19/24 11:42 08/19/24 11:42 08/19/24 11:43 Preop Diagnosis: Osteomyelitis right second toe Operation Date: 08/19/24 13:05 Proposed Procedures p second toe amputation(Right) - Karl Weller, DPM Was Beta Chadwick taken within 24 hours: Yes Was Clonidine taken within 24 hours: N/A Last intake: Intake Last Liquid Date 08/19/24 Last Liquid Time 09:00 Last Solid Date 08/18/24 Last Solid Time 23:50 Social Tobacco and No alcohol Exam alert, oriented x 3 and regular rate & rhythm Decreased breath sounds bilaterally Airway Submandibular: within normal limits Cervical ROM: within normal limits Mallampati: Class II Comments: Comments: Edentulous Anesthetic Plan ASA status: 3 Anesthesia: MAC Other: Patient denies any issues with anesthesia in the past NPO since yesterday History of hypertension on losartan and metoprolol Insulin-dependent diabetes, took his normal dose of insulin today. Preop BS 180 On chronic Plavix for prior CVA. Taken this a.m. Surgeon is aware Recent labs reviewed and acceptable for procedure today Prior EKG showing sinus rhythm with a nonspecific T wave abnormality. Patient denies any chest pain or shortness of breath Plan for MAC anesthesia with local via surgeon Medications/Allergies Home Medications ?Medication ?Instructions ?Recorded ?Confirmed ?Last Taken ?Type empagliflozin 25 mg tablet 25 mg PO DAILY 06/28/24 08/19/24 08/19/24 History (Jardiance) aspirin 81 mg tablet,delayed 81 mg PO DAILY #30 tabs 07/05/24 08/19/24 08/19/24 09:00 Rx release atorvastatin 40 mg tablet 40 mg PO BEDTIME #30 tabs 07/05/24 08/18/24 08/18/24 Rx blood-glucose meter (Blood Glucose #1 ea 07/05/24 08/15/24 Unknown Rx Monitoring kit) clopidogrel 75 mg tablet 75 mg PO DAILY #30 tabs 07/05/24 08/19/24 08/19/24 Rx insulin glargine 100 unit/mL (3 15 unit (0.15 mL) SUBCUT DAILY #15 07/05/24 08/19/24 08/19/24 09:00 Rx mL) subcutaneous pen (Lantus mL Solostar U-100 Insulin) insulin lispro 100 unit/mL 5 unit (0.05 mL) SUBCUT TID #15 mL 07/05/24 08/18/24 08/18/24 Rx subcutaneous pen (Humalog KwikPen (U-100) Insulin) lancets #100 ea 07/05/24 08/15/24 Unknown Rx losartan 50 mg tablet 50 mg PO DAILY #30 tabs 07/05/24 08/19/24 08/19/24 Rx metoprolol succinate 25 mg 25 mg PO DAILY #30 tabs 07/05/24 08/19/24 08/19/24 Rx tablet,extended release 24 hr pen needle, diabetic 32 gauge x #50 ea 07/05/24 08/15/24 Unknown Rx 1/4 (BD Ultra-Fine Micro Pen Needle) mupirocin 2 % topical ointment 1 applic topical DAILY #22 grams 08/09/24 08/18/24 Unknown Rx (Centany) cefadroxil 1 gram tablet 1,000 mg PO BID 30 days #60 tabs 08/15/24 08/19/24 08/19/24 Rx Allergies Allergy/AdvReac Type Severity Reaction Status Date / Time No Known Allergies Allergy Verified 08/19/24 11:35 Current Medications Generic Name Dose Route Start Last Admin Trade Name Freq PRN Reason Stop Dose Admin Sodium Chloride 1,000 mls @ 30 mls/hr 08/19/24 11:45 08/19/24 12:01 Sodium Chloride 0.9% IV 08/20/24 11:44 30 mls/hr .Q24H KATHERINE Administration PFSH Anesthesia Medical History Elevated blood pressure reading in office with diagnosis of hypertension Atherosclerosis of coronary artery of [place] heart without angina pectoris Left carotid stenosis Left acute arterial ischemic stroke, MCA (middle cerebral artery) CVA (cerebral vascular accident) Polycythemia Acute confusion Hypertension Diabetes Surgical History History of testicular surgery Family History Denies family history of Hyperlipidemia Psychiatric illness Lung disease Hypertension Social History Smoking and tobacco/nicotine status: current some day tobacco/nicotine user Alcohol intake: never Substance/Drug Use: never Lives independently: Yes Housing: House Data Anesthesia Cardiac Studies: Echocardiogram 04/23/21
--- NOTE | 2024-08-19 12:30 | W.PM.OPSUD ---
Surgery/Procedure H&P Update DATE OF PROCEDURE: August 19, 2024 DATE H&P PERFORMED: 08/15/24 H&P UPDATE INFORMATION: I have reviewed H&P completed within last 30 days, I have examined patient prior to procedure, No changes to prior documentation and H&P is in [facility] EMR on date indicated PREOP DIAGNOSIS: Osteomyelitis right second toe PLANNED PROCEDURE: Operation Date: 08/19/24 13:05 Proposed Procedures p second toe amputation(Right) - Karl Weller DPM
[2024-08-19] MEDS: ceFAZolin 2,000 mg SDV 2000 MG IVP (12:42)
[2024-08-19] MEDS: lidocaine 1% 10 ML INJ 20 ML INJECTION (13:06)
--- NOTE | 2024-08-19 13:11 | W.PM.BPON ---
Date of Procedure: 08/14/23 Surgeon: Karl Weller DPM [employer] Designer(s): Derrell Procedure(s) performed: Right second toe amputation through proximal interphalangeal joint. Findings of the procedure(s): Osteomyelitis distal phalanx right second toe Estimated blood loss: 5 mL Specimen(s) removed: Distal right second toe sent to pathology for permanent Post-operative diagnosis: Acute osteomyelitis right second toe distal phalanx
--- NOTE | 2024-08-19 13:12 | P.OP_ITS ---
Operative Report Date of procedure: August 19, 2024 Pre-op diagnosis: Acute osteomyelitis right second toe L97.514 Post-op diagnosis: Acute osteomyelitis right second toe L97.514 Procedure done: Right second toe amputation at proximal interphalangeal joint. CPT code 45451 Implants: 4-0 Vicryl, 4 nylon Pathology: Distal aspect of right second toe sent to pathology for permanent Surgeon: Karl Weller DPM Vertical Roll Operator: Derrell Estimated blood loss: 5 11 IV fluids: See intraoperative documentation Urine output: None Complications: None Brief History: 63 year old male with history of osteomyelitis presenting with infection of the distal phalanx of the right second toe. The condition, evidenced by X-ray analysis, is isolated to the distal region, yet poses a risk of spreading. The recommended intervention includes surgical amputation to prevent further progression and preserve toe function as much as possible. 1. Osteomyelitis Of The Distal Phalanx Of The Right Second Toe The treatment plan involves surgical amputation of the distal phalanx to control the osteomyelitis and prevent further infection. This procedure will be performed on an outpatient basis, maintaining current anticoagulation therapy. Coordination with the [place] for authorization and follow-up is ongoing. - Continue taking your prescribed blood thinners as instructed. - Expect a call on Thursday to confirm your surgery's exact time. Do not eat or drink after midnight on the night prior to the surgery. - Attend the surgery facility at 10:50 am on the day of the procedure unless informed otherwise. - Post-surgery, monitor the site for signs of infection such as increased redness, swelling, or pain, and contact healthcare if these occur. - Follow the home care dressings instructions as provided for after your procedure. I reviewed at length with the patient, the risks, potential complications, benefits, alternatives, expectations, and typical outcomes associated with the surgery. The risks and potential complications were explained in detail, including but not limited to infection, wound dehiscence or soft tissue compli cations, bleeding and hematoma, chronic edema, neuritis or nerve damage producing numbness or chronic pain, CRPS, failure to relieve pain or worsening pain, thick / painful / unsightly scar, limited motion / stiffness, malposition, delayed union, malunion, or nonunion, fracture, reaction to implants, anesthetic complications, venous thromboembolism, and deformity recurrence. I discussed the notion of no regrets with the patient as it pertains to complications and outcomes. The patient seemed to understand the nature of the proposed care and required convalescence. They asked appropriate questions, answered to their satisfaction. They are aware no guarantees can be made as to a satisfactory outcome and they understand there may be other possible unforeseen complications or outcomes not listed here that will be treated accordingly if they arise. There were no written or implied guarantees given to the patient. They gave informed consent to proceed. Procedure: Under mild sedation patient was brought to the operating room and remained on the gurney in supine position. A timeout was performed. Anesthesia was then administered by the anesthesia service. Local anesthesia injected by myself consisting of 20 cc of one-to-one mixture 1% lidocaine and 0.5% Marcaine plain in a right second ray block fashion. Well-padded pneumatic tourniquet was applied to the right ankle. Right lower extremity was scrubbed, prepped and draped utilizing normal aseptic technique. Right lower extremity was elevated and tourniquet inflated to 250 mmHg. Attention was directed to the right second toe where a full-thickness wound with exposed distal phalanx and localized erythema was appreciated. A full-thickness incision was carried out down to bone with a #15 blade in a fishmouth fashion encompassing the right second toe at the proximal interphalangeal joint, the joint was sharply disarticulated and the distal aspect of the right second toe was sent to pathology for permanent review. The incision was irrigated with copious amounts of sterile skin solution. The head of the proximal phalanx was viable and skin flaps at this margin also appeared viable. All bleeders were ligated and cauterized as necessary. Irrigation was performed with sterile saline solution and subcutaneous tissue was then closed with 4-0 Vicryl and skin with 4-0 nylon. The incision was dressed with Xeroform, sterile gauze, Kerlix and Rashi wrap. Tourniquet was deflated and a prompt hyperemic response is noted to the remaining digits of the right foot. Postop shoe was applied to the right foot. Patient tolerated procedure and anesthesia well and was transferred to the PACU with vital signs stable and vascular status intact. Following a period of postoperative monitoring he will be discharged home without home care instructions and scheduled follow-up.
--- NOTE | 2024-08-19 14:27 | ANE.PACU2 ---
Inpatient post-anesthesia follow up: Airway intact: Yes Vital signs: Temperature 97.2 F Pulse Rate 82 Respiratory Rate 17 Blood Pressure 97/55 Pulse Oximetry 95 Oxygen Delivery Me thod Room Air Oxygen Flow Rate Fraction of Inspir ed Oxygen Hydration adequate: Yes Nausea and vomiting: No Pain level: 1 Mental status: Baseline
== END 2024-08-19 14:27 | disposition home or self-care (01) ==
PROVIDERS: Visit Provider Podiatrist Foot & Ankle Surgery
PROC: (CPT 28825; principal; 2024-08-19 12:55)
DX: E11.621 Type 2 diabetes mellitus with foot ulcer (principal); L03.031 Cellulitis of right toe; L97.514 Non-pressure chronic ulcer of other part of right foot with necrosis of bone; I10 Essential (primary) hypertension; E11.42 Type 2 diabetes mellitus with diabetic polyneuropathy; Z86.73 Personal history of transient ischemic attack (TIA), and cerebral infarction without residual deficits; Z79.02 Long term (current) use of antithrombotics/antiplatelets; Z79.899 Other long term (current) drug therapy; Z79.82 Long term (current) use of aspirin; Z79.4 Long term (current) use of insulin; F17.200 Nicotine dependence, unspecified, uncomplicated
CPT/HCPCS: 28825; 36416; 82962; 88305; 88311; J0690; J2704; J7030; J9999

== ENCOUNTER → 2024-08-25 13:30 | Outpatient (BNVA) | payer OTHER, SELFPAY | PROVIDERS: Visit Provider Podiatrist Foot & Ankle Surgery | DX: M86.171 Other acute osteomyelitis, right ankle and foot (principal); M86.671 Other chronic osteomyelitis, right ankle and foot; E11.42 Type 2 diabetes mellitus with diabetic polyneuropathy; Z79.4 Long term (current) use of insulin | CPT/HCPCS: 99213 ==

== ENCOUNTER → 2024-08-30 12:59 | Outpatient (BNVA) | payer OTHER, SELFPAY | PROVIDERS: Visit Provider Podiatrist Foot & Ankle Surgery | DX: M86.171 Other acute osteomyelitis, right ankle and foot (principal); M86.671 Other chronic osteomyelitis, right ankle and foot; E11.42 Type 2 diabetes mellitus with diabetic polyneuropathy; Z79.4 Long term (current) use of insulin | CPT/HCPCS: 99213 ==

== ENCOUNTER → 2024-09-05 11:27 | Outpatient (BNVA) | payer OTHER, SELFPAY | PROVIDERS: Visit Provider Podiatrist Foot & Ankle Surgery | DX: M86.171 Other acute osteomyelitis, right ankle and foot (principal); M86.671 Other chronic osteomyelitis, right ankle and foot; E11.42 Type 2 diabetes mellitus with diabetic polyneuropathy; Z79.4 Long term (current) use of insulin | CPT/HCPCS: 99213 ==

== ENCOUNTER → 2024-10-18 14:36 | Outpatient (BNVA) | payer OTHER, SELFPAY | PROVIDERS: PCP Emergency Medicine Emergency Medical Services; Visit Provider Podiatrist Foot & Ankle Surgery | DX: E11.42 Type 2 diabetes mellitus with diabetic polyneuropathy (principal); E11.621 Type 2 diabetes mellitus with foot ulcer; L97.513 Non-pressure chronic ulcer of other part of right foot with necrosis of muscle; I73.9 Peripheral vascular disease, unspecified; L03.115 Cellulitis of right lower limb; Z89.429 Acquired absence of other toe(s), unspecified side; M86.671 Other chronic osteomyelitis, right ankle and foot; Z79.4 Long term (current) use of insulin | CPT/HCPCS: 11043; 73630; 87070; 87075; 87077; 87186; 87205; 99214 ==